=== PATIENT | female | born 1955 | race African-American/Black ===

== ENCOUNTER 2023-04-18 12:45 | Outpatient (REF) | payer OTHER, SELFPAY | END 2023-04-18 12:46 | disposition home or self-care (01) | LOC: HO.BBR 12:45 | PROVIDERS: Visit Provider Physician Assistant Medical | DX: E83.19 Other disorders of iron metabolism (principal) | CPT/HCPCS: 85014; 85018; 99195 ==

== ENCOUNTER 2023-05-05 10:06 | Outpatient (REF) | payer OTHER, SELFPAY | END 2023-05-05 10:07 | disposition home or self-care (01) | LOC: HO.BBR 10:06 | PROVIDERS: Visit Provider Physician Assistant Medical | DX: E83.19 Other disorders of iron metabolism (principal) | CPT/HCPCS: 85018; 99195 ==

== ENCOUNTER 2023-05-09 11:04 | Outpatient (REF) | payer OTHER, SELFPAY | END 2023-05-09 11:05 | disposition home or self-care (01) | LOC: HO.BBR 11:04 | PROVIDERS: Visit Provider Physician Assistant Medical | DX: E83.19 Other disorders of iron metabolism (principal) | CPT/HCPCS: 85014; 85018; 99195 ==

== ENCOUNTER 2023-05-16 11:06 | Outpatient (REF) | payer OTHER, SELFPAY | END 2023-05-16 11:07 | disposition home or self-care (01) | LOC: HO.BBR 11:06 | PROVIDERS: Visit Provider Physician Assistant Medical | DX: E83.19 Other disorders of iron metabolism (principal) | CPT/HCPCS: 85014; 85018; 99195 ==

== ENCOUNTER 2023-05-23 11:05 | Outpatient (REF) | payer OTHER, SELFPAY | END 2023-05-23 11:06 | disposition home or self-care (01) | LOC: HO.BBR 11:05 | PROVIDERS: Visit Provider Physician Assistant Medical | DX: E83.19 Other disorders of iron metabolism (principal) | CPT/HCPCS: 85014; 85018; 99195 ==

== ENCOUNTER 2023-06-06 11:08 | Outpatient (REF) | payer MEDICARE, MEDICAID, SELFPAY | END 2023-06-06 11:09 | disposition home or self-care (01) | LOC: HO.BBR 11:08 | PROVIDERS: Visit Provider Physician Assistant Medical | DX: E83.19 Other disorders of iron metabolism (principal) | CPT/HCPCS: 85014; 85018; 99195 ==

== ENCOUNTER 2023-06-13 14:00 | Outpatient (REF) | payer MEDICARE, MEDICAID, SELFPAY | END 2023-06-13 14:01 | disposition home or self-care (01) | LOC: HO.BBR 14:00 | PROVIDERS: Visit Provider Physician Assistant Medical | DX: E83.19 Other disorders of iron metabolism (principal) | CPT/HCPCS: 85014; 85018; 99195 ==

== ENCOUNTER 2023-06-20 12:09 | Outpatient (REF) | payer OTHER, SELFPAY | END 2023-06-20 12:10 | disposition home or self-care (01) | LOC: HO.BBR 12:09 | PROVIDERS: Visit Provider Physician Assistant Medical | DX: E83.19 Other disorders of iron metabolism (principal) | CPT/HCPCS: 85014; 85018; 99195 ==

== ENCOUNTER 2023-06-27 12:13 | Outpatient (REF) | payer OTHER, SELFPAY | END 2023-06-27 12:14 | disposition home or self-care (01) | LOC: HO.BBR 12:13 | PROVIDERS: Visit Provider Physician Assistant Medical | DX: E83.19 Other disorders of iron metabolism (principal) | CPT/HCPCS: 85014; 85018; 99195 ==

== ENCOUNTER 2023-07-11 11:15 | Outpatient (REF) | payer OTHER, SELFPAY | END 2023-07-11 11:16 | disposition home or self-care (01) | LOC: HO.BBR 11:15 | PROVIDERS: Visit Provider Physician Assistant Medical | DX: E83.19 Other disorders of iron metabolism (principal) | CPT/HCPCS: 85018; 99195 ==

== ENCOUNTER 2023-07-25 10:57 | Outpatient (REF) | payer OTHER, SELFPAY | END 2023-07-25 10:58 | disposition home or self-care (01) | LOC: HO.BBR 10:57 | PROVIDERS: Visit Provider Physician Assistant Medical | DX: E83.10 Disorder of iron metabolism, unspecified (principal) | CPT/HCPCS: 85018; 99195 ==

== ENCOUNTER 2023-08-01 11:16 | Outpatient (REF) | payer OTHER, SELFPAY | END 2023-08-01 11:17 | disposition home or self-care (01) | LOC: HO.BBR 11:16 | PROVIDERS: Visit Provider Physician Assistant Medical | DX: E83.10 Disorder of iron metabolism, unspecified (principal) | CPT/HCPCS: 85018; 99195 ==

== ENCOUNTER 2023-09-08 14:34 | Outpatient (REF) | payer OTHER, SELFPAY | END 2023-09-08 14:35 | disposition home or self-care (01) | LOC: HO.BBR 14:34 | PROVIDERS: Visit Provider Physician Assistant Medical | DX: E83.10 Disorder of iron metabolism, unspecified (principal) | CPT/HCPCS: 85018; 99195 ==

== ENCOUNTER 2023-09-17 14:09 | Outpatient (REF) | payer OTHER, SELFPAY | END 2023-09-17 14:10 | disposition home or self-care (01) | LOC: HO.BBR 14:09 | PROVIDERS: Visit Provider Physician Assistant Medical | DX: E83.10 Disorder of iron metabolism, unspecified (principal) | CPT/HCPCS: 85018; 99195 ==

== ENCOUNTER 2023-11-11 12:03 | Outpatient (REF) | payer OTHER, SELFPAY | END 2023-11-11 12:04 | disposition home or self-care (01) | LOC: HO.BBR 12:03 | PROVIDERS: Visit Provider Physician Assistant Medical | DX: E83.111 Hemochromatosis due to repeated red blood cell transfusions (principal) | CPT/HCPCS: 85014; 85018; 99195 ==

== ENCOUNTER 2023-11-19 13:12 | Outpatient (REF) | payer OTHER, SELFPAY | END 2023-11-19 13:13 | disposition home or self-care (01) | LOC: HO.BBR 13:12 | PROVIDERS: Visit Provider Physician Assistant Medical | DX: E83.111 Hemochromatosis due to repeated red blood cell transfusions (principal) | CPT/HCPCS: 85018; 99195 ==

== ENCOUNTER 2023-11-26 11:12 | Outpatient (REF) | payer OTHER, SELFPAY | END 2023-11-26 11:13 | disposition home or self-care (01) | LOC: HO.BBR 11:12 | PROVIDERS: Visit Provider Physician Assistant Medical | DX: E83.111 Hemochromatosis due to repeated red blood cell transfusions (principal) | CPT/HCPCS: 85018; 99195 ==

== ENCOUNTER 2023-12-09 11:07 | Outpatient (REF) | payer OTHER, SELFPAY | END 2023-12-09 11:08 | disposition home or self-care (01) | LOC: HO.BBR 11:07 | PROVIDERS: Visit Provider Physician Assistant Medical | DX: E83.111 Hemochromatosis due to repeated red blood cell transfusions (principal) | CPT/HCPCS: 85014; 85018; 99195 ==

== ENCOUNTER 2023-12-16 11:10 | Outpatient (REF) | payer OTHER, SELFPAY | END 2023-12-16 11:11 | disposition home or self-care (01) | LOC: HO.BBR 11:10 | PROVIDERS: Visit Provider Physician Assistant Medical | DX: E83.119 Hemochromatosis, unspecified (principal) | CPT/HCPCS: 85018; 99195 ==

== ENCOUNTER 2023-12-24 11:01 | Outpatient (REF) | payer OTHER, SELFPAY | END 2023-12-24 11:02 | disposition home or self-care (01) | LOC: HO.BBR 11:01 | PROVIDERS: Visit Provider Physician Assistant Medical | DX: E83.111 Hemochromatosis due to repeated red blood cell transfusions (principal) | CPT/HCPCS: 85014; 85018; 99195 ==

== ENCOUNTER 2024-01-02 13:07 | Outpatient (REF) | payer OTHER, SELFPAY | END 2024-01-02 13:08 | disposition home or self-care (01) | LOC: HO.BBR 13:07 | PROVIDERS: Visit Provider Physician Assistant Medical | DX: E83.119 Hemochromatosis, unspecified (principal) | CPT/HCPCS: 85014; 85018; 99195 ==

== ENCOUNTER 2024-01-09 13:13 | Outpatient (REF) | payer OTHER, SELFPAY | END 2024-01-09 13:14 | disposition home or self-care (01) | LOC: HO.BBR 13:13 | PROVIDERS: Visit Provider Physician Assistant Medical | DX: E83.111 Hemochromatosis due to repeated red blood cell transfusions (principal) | CPT/HCPCS: 85018; 99195 ==

== ENCOUNTER 2024-01-20 13:04 | Outpatient (REF) | payer OTHER, SELFPAY | END 2024-01-20 13:05 | disposition home or self-care (01) | LOC: HO.BBR 13:04 | PROVIDERS: Visit Provider Physician Assistant Medical | DX: E83.19 Other disorders of iron metabolism (principal) | CPT/HCPCS: 85014; 85018; 99195 ==

== ENCOUNTER 2024-01-28 13:09 | Outpatient (REF) | payer OTHER, SELFPAY | END 2024-01-28 13:10 | disposition home or self-care (01) | LOC: HO.BBR 13:09 | PROVIDERS: Visit Provider Physician Assistant Medical | DX: E83.19 Other disorders of iron metabolism (principal) | CPT/HCPCS: 85018; 99195 ==

== ENCOUNTER 2024-02-06 11:06 | Outpatient (REF) | payer OTHER, SELFPAY | END 2024-02-06 11:07 | disposition home or self-care (01) | LOC: HO.BBR 11:06 | PROVIDERS: Visit Provider Physician Assistant Medical | DX: E83.19 Other disorders of iron metabolism (principal) | CPT/HCPCS: 85014; 85018; 99195 ==

== ENCOUNTER 2024-02-17 10:28 | Outpatient (REF) | payer OTHER, SELFPAY | END 2024-02-17 10:29 | disposition home or self-care (01) | LOC: HO.BBR 10:28 | PROVIDERS: Visit Provider Physician Assistant Medical | DX: E83.111 Hemochromatosis due to repeated red blood cell transfusions (principal) | CPT/HCPCS: 85018 ==

== ENCOUNTER 2024-03-05 11:04 | Outpatient (REF) | payer OTHER, SELFPAY | END 2024-03-05 11:05 | disposition home or self-care (01) | LOC: HO.BBR 11:04 | PROVIDERS: Visit Provider Physician Assistant Medical | DX: E83.119 Hemochromatosis, unspecified (principal) | CPT/HCPCS: 85018; 99195 ==

== ENCOUNTER 2024-03-18 11:07 | Outpatient (REF) | payer OTHER, SELFPAY ==
--- OUTSIDE RECORDS SUMMARY | 2024-03-18 15:00 | XMS_ITS | Patient Health Record ---
Author Organization [facility] Address [address] [place] [address] Care Team Providers Care Embalmer Assistant Name Role Phone Mireya Downing MD Primary Care Provider Leila Valdez Unavailable [phone] Reason For Referral No Information Encounters Encounter Location Date Provider [facility] [address] [address] 03/16/2024 Leila Crowder Plan Of Treatment Next Appt Details Provider Name:Krzysztof Jovana Nettles , 06/10/2024 10:00:00 AM, [address] [address], [place], [address], Insurance Providers Payer Name Payer Address Payer Phone Subscriber Number Group Number Insured Name Patient Relationship to Insured Coverage Start Date Coverage End Date [facility] [employer] [place] [employer] Claims [address] [place] [id number] Kendra Martinez Self - patient is the insured
--- OUTSIDE RECORDS SUMMARY | 2024-03-18 15:00 | XMS_ITS ---
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 Generated for Printi ng/Margo/eTransmitting on:?03/18/2024 02:59 PM EST
--- OUTSIDE RECORDS SUMMARY | 2024-03-18 15:00 | XMS_ITS | Clinical Summary ---
Author Organization [facility] Address [address] [place] [address] Care Team Providers Care Piano And Organ Refinisher Name Role Phone Unavailable Primary Care Provider Unavailabl e Social History Tobacco Use Types Packs/Day Years Used Date Smoking Tobacco: Never Assessed Sex and Gender Information Value Date Recorded Sex Assigned at Not on file Gender Identity Not on file Sexual Orientation Not on file Plan of Treatment Health Maintenance Due Date Last Done Comments DTaP,Tdap,and Td Vaccines (1 - Tdap) 1973 Zoster Vaccines (1 of 2) 2004 Pneumococcal Vaccine: 65+ Ye ars (1 of 1 - PCV) 06/04/2019 Breast Cancer Screening 03/17/2021 03/17/2019 Colorectal Cancer Screening: Colonoscopy 01/20/2022 Depression Screening 01/20/2022 Falls Risk Assessment 01/20/2022 Hepatitis C Screening 01/20/2022 Osteoporosis Screening (Bone Density Screening) 01/20/2022 Social Influencers of Health Screening 01/20/2022 COVID-19 Vaccine ( - 2023-2 5 season) 2023 Influenza Vaccine (#1) 2023 RSV Immunization Patients 60 + Years Old (1 - 1-dose 75+ series) 2029 HIB Vaccines Aged Out No longer eligi ble based on patient's age to complete this topic HPV Vaccines Aged Out No longer eligi ble based on patient's age to complete this topic Hepatitis A Vaccines Aged Out No long er eligible based on patient's age to complete this topic Hepatitis B Vaccines Aged Out No long er eligible based on patient's age to complete this topic IPV Vaccines Aged Out No longer eligi ble based on patient's age to complete this topic MMR Vaccines Aged Out No longer eligi ble based on patient's age to complete this topic Meningococcal ACWY Vaccine Aged Out N o longer eligible based on patient's age to complete this topic RSV Immunization Patients Un gillian 20 months Aged Out No longer eligible b ased on patient's age to complete this topic Varicella Vaccines Aged Out No longer eligible based on patient's age to complete this topic Procedures Procedure Name Priority Date/Time Associated Diagnosis Comments [facility] SCREENING DIGITAL Routine 03/17/2019 10:29 AM EST Encounter for screening mammogram for malignant neoplasm of breast from Last 3 Months or Most Recently Relevant to Health Maintenance Results * [facility] SCREENING DIGITAL (03/17/2019 10:29 AM EST) Anatomical Region Laterality Modality Mammography 03/17/2019 9:18 AM EST Narrative 03/17/2019 10:[address] [facility] Diagnostic Imaging Department [address] [place] [address] Patient: ??PURNIMAKENDRA ?/Age/Sex: 1955 - 63 - F Unit#: ??[id number] ? Location/Status: ??SPDIMAM/REG CLI ? Mnemonic/Ordering Site: ??DIGSC/SPMAM Ordering Physician: ??EVA HARVEY MD [facility] Screening Digital - 03/17/19 - 943 INDICATION: SCREENING COMPARISON: No prior studies are available for comparison. TECHNIQUE: CC and MLO views of the breasts were obtained, using full field digital mammography with 3D tomosynthesis views in the MLO projection. Computer aided detection with the [employer] 7.2-H was employed. FINDINGS: The breast tissue is extremely dense, lowering sensitivity of mammography in this patient. Loosely grouped calcifications within the upper outer quadrant of the left breast. ??Benign vascular type calcifications are present bilaterally. No suspicious masses, or areas of architectural distortion are identified within either breast. ??There are no secondary signs of breast malignancy. IMPRESSION: ??Loosely grouped calcifications within the upper outer quadrant of the left breast. ??Further evaluation with magnification views is recommended. No specific mammographic evidence of breast malignancy on the right. Lack of an imaging correlate should not deter or delay biopsy of a clinically significant palpable finding. BI-RADS ??- Category 0 - Incomplete needs additional imaging evaluation. 3340F, 7025F (G0202 / 13576) , ??[id number] Dictating Physician: ??J LUIS COTTRELL MD Electronically Signed by: ??J LUIS COTTRELL MD Dic Date/Time: ??03/17/19 1024 Sign date/Time: ??03/17/19 1029 Procedure Note J Luis Cottrell - 02/06/2022 [facility] Diagnostic Imaging Department [address] [place] [address] Patient: KENDRA MARTINEZ D.O.B./Age/Sex: 1955 - 63 - F Unit#: [id number] Location/Status: [facility] CLI Mnemonic/Ordering Site: [facility] Ordering Physician: EVA HARVEY MD [facility] Screening Digital - 03/17/19 - 3134 INDICATION: SCREENING COMPARISON: No prior studies are available for comparison. TECHNIQUE: CC and MLO views of the breasts were obtained, using full field digital mammography with 3D tomosynthesis views in the MLO projection. Computer aided detection with the [employer] 7.2-H was employed. FINDINGS: The breast tissue is extremely dense, lowering sensitivity of mammographyin this patient. Loosely grouped calcifications within the upper outer quadrant of theleft breast. Benign vascular type calcifications are present bilaterally. No suspicious masses, or areas of architectural distortion areidentified within either breast. There are no secondary signs of breastmalignancy. IMPRESSION: Loosely grouped calcifications within the upper outerquadrant of the left breast. Further evaluation with magnification views isrecommended. No specific mammographic evidence of breast malignancy on the right. Lack of an imaging correlate should not deter or delay biopsy of aclinically significant palpable finding. BI-RADS - Category 0 - Incomplete needs additional imaging evaluation.3340F, 7025F (G0202 / [id number] , [id number] Dictating Physician: J LUIS COTTRELL MD Electronically Signed by: J LUIS COTTRELL MD Dic Date/Time: 03/17/19 1024 Sign date/Time: 03/17/19 1029 Eva Harvey MD IMG BI PROCEDURES from Last 3 Months or Most Recently Relevant to Health Maintenance
== END 2024-03-18 11:08 | disposition home or self-care (01) ==
LOC: HO.BBR 11:07
PROVIDERS: Visit Provider Physician Assistant Medical
DX: E83.19 Other disorders of iron metabolism (principal)
CPT/HCPCS: 85018; 99195

== ENCOUNTER 2024-03-31 11:07 | Outpatient (REF) | payer OTHER, SELFPAY ==
--- OUTSIDE RECORDS SUMMARY | 2024-03-31 13:01 | XMS_ITS | Clinical Summary ---
Author Organization [facility] ity Address [address] [place] [address] Care Team Providers Care Mold Closer Helper Name Role Phone Unavailable Primary Care Provider Unavailabl e Social History Tobacco Use Types Packs/Day Years Used Date Smoking Tobacco: Never Assessed Comments Unknown Sex and Gender Information Value Date Recorded Sex Assigned at Not on file Legal Sex Female 4:54 PM EST Gender Identity Not on file Sexual Orientation Not on file Plan of Treatment Health Maintenance Due Date Last Done Comments DTaP,Tdap,and Td Vaccines (1 - Tdap) 1973 Pneumococcal Vaccine: 50+ Ye ars (1 of 1 - PCV) 2004 Zoster Vaccines (1 of 2) 2004 Breast Cancer Screening 03/17/2021 03/17/2019 Colorectal Cancer [...] patient's age to complete this topic Meningococcal B Vacine Aged Out No lo nger eligible based on patient's age to complete this topic RSV Immunization Patients Un gillian 20 months Aged Out No longer eligible b ased on patient's age to complete this topic Varicella Vaccines Aged Out No longer eligible based on patient's age to complete this topic Procedures Procedure Name Priority Date/Time Associated Diagnosis Comments [facility] SCREENING DIGITAL Routine 03/17/2019 10:29 AM EST Encounter for screening mammogram for malignant neoplasm of breast from Last 3 Months or Most Recently Relevant to Health Maintenance Results * [facility] SCREENING DIGITAL (03/17/2019 10:29 AM EST) Anatomical Region Laterality Modality Mammography 03/17/2019 9:18 AM EST Narrative 03/17/2019 10:29 AM EST [facility] Diagnostic Imaging Department [address] [place] [address] Patient: ??KENDRA MARTINEZ ?/Age/Sex: 1955 - 63 - F Unit#: ??[id number] ? Location/Status: ??SPDIMAM/REG CLI ? Mnemonic/Ordering Site: ??DIGSC/SPMAM Ordering Physician: ??EVA HARVEY MD [facility] Screening Digital - 03/17/19943 INDICATION: SCREENING COMPARISON: No prior studies are available for comparison. TECHNIQUE: CC and MLO views of the breasts were obtained, using full field digital mammography with 3D tomosynthesis views in the MLO projection. Computer aided detection with the [employer] 7.2-H was employed. FINDINGS: The breast tissue [...] additional imaging evaluation. 3340F, 7025F (G0202 / 76239) , ??[address]27 Dictating Physician: ??JL UIS COTTRELL MD Electronically Signed by: ??J LUIS COTTRELL MD Dic Date/Time: ??03/17/19 1024 Sign date/Time: ??03/17/19 1029 Procedure Note J Luis Cottrell - 02/06/2022 [facility] Diagnostic Imaging Department [address] [place] [id number] Patient: KENDRA MARTINEZ D.O.B./Age/Sex: 1955 - 63 - F Unit#: [id number] Location/Status: [facility] CLI Mnemonic/Ordering Site: [facility] Ordering Physician: EVA HARVEY MD [facility] Screening Digital - 03/17/19 - 0944 INDICATION: SCREENING COMPARISON: No prior studies are available for comparison. TECHNIQUE: CC and MLO views of the breasts were obtained, using full field digital mammography with 3D tomosynthesis views in the MLO projection. Computer aided detection with the [employer] 7.2-H was employed. FINDINGS: The breast tissue [...] needs additional imaging evaluation.3340F, 7025F (G0202 / 42177) , [address]808 Dictating Physician: J LUIS COTTRELL MD Electronically Signed by: J LUIS COTTRELL MD Dic Date/Time: 03/17/19 1024 Sign date/Time: 03/17/19 1029 us vEa Harvey MD IMG BI PROCEDURES Final Resul t from Last 3 Months or Most Recently Relevant to Health Maintenance
--- OUTSIDE RECORDS SUMMARY | 2024-03-31 13:01 | XMS_ITS ---
Author Organization [facility] Address [address] [place] [address] Care Team Providers Care Wood And Wood Products Labourer Name Role Phone Chang LEE, Mireya Primary Care Provider Leila Valdez [phone] Encounters Encounter Location Date Provider Diagnosis [address] [address] 03/19/2024 Leila Crowder Plan Of Treatment Next Appt Details Provider Name:Krzysztof Nettles , 06/10/2024 10:00:00 AM, [address] [place] [address], [address], Progress Notes * JUAN Kendra ADOB: [birth year] (68 yo F)Acc No.[id number]:03/19/2024 Progress Notes Patient:?Latisha MARTINEZley Rubén Provider:?Leila Crowder DPM :1955???Age:68 Y???Sex:Female D ate:03/19/2024 Address:[address] [place], [place] [address] Pcp:Mireya Downing MD Subjective: * Chief Complaints: * ??? * Medical History:? Objective: * Vitals:? Assessment: Plan: * Treatment: * Images: * The named appointment provid er may or may not be the originator of this progress note, and it is not deemed complete until electronically signed by the appointment provider. Sign off status: Pending * Provider:?Leila Crowder DPM Date:?0 03/19/2024 Generated for Alessandroi jose alfredo/Margo/eTransmitting on:?03/31/2024 01:01 PM EST
--- OUTSIDE RECORDS SUMMARY | 2024-03-31 13:01 | XMS_ITS | Patient Health Record ---
Author Organization [facility] Address [address] [place] [address] Care Team Providers Care Drafter Construction Name Role Phone Mireya Downing MD Primary Care Provider Leila Valdez Unavailable [phone] Reason For Referral No Information Encounters Encounter Location Date [facility] [address] [address] 03/16/2024 Leila Crowder Plan Of Treatment Next Appt Details Provider Name:Krzysztof Jovana Nettles , 06/10/2024 10:00:00 AM, [address] [address], [place], [address], Insurance Providers Payer Name Payer Address Payer Phone Subscriber Number Group Number Insured Name Patient Relationship to Insured Coverage Start Date Coverage End Date [facility] [employer] Claims [address] [place] [id number] Kendra Martinez Self - patient is the insured
--- OUTSIDE RECORDS SUMMARY | 2024-03-31 13:01 | XMS_ITS ---
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 Generated for Printi ng/Margo/eTransmitting on:?03/31/2024 01:01 PM EST
== END 2024-03-31 11:08 | disposition home or self-care (01) ==
LOC: HO.BBR 11:07
PROVIDERS: Visit Provider Physician Assistant Medical
DX: E83.19 Other disorders of iron metabolism (principal)
CPT/HCPCS: 85014; 85018; 99195

== ENCOUNTER 2024-04-14 11:39 | Outpatient (REF) | payer OTHER, SELFPAY ==
--- OUTSIDE RECORDS SUMMARY | 2024-04-14 14:41 | XMS_ITS | Patient Health Record ---
Author Organization [facility] Address [address] [place] [address] Care Team Providers Care Long Term Care Social Worker Name Role Phone Mireya Downing MD Primary Care Provider Leila Valdez Unavailable [phone] Reason For Referral No Information Encounters Encounter Location Date Provider [facility] [address] [address] 03/16/2024 Leila Crowder Plan Of Treatment Next Appt Details Provider Name:Krzysztof Jovana Nettles , 06/10/2024 10:00:00 AM, [address] [address], [place], [address], Insurance Providers Payer Name Payer Address Payer Phone Subscriber Number Group Number Insured Name Patient Relationship to Insured Coverage Start Date Coverage End Date [facility] [employer] Claims [address] [place] [phone] [id number] Kendra Martinez Self - patient is the insured
--- OUTSIDE RECORDS SUMMARY | 2024-04-14 14:42 | XMS_ITS ---
Author Organization [facility] Address [address] [place] [address] Care Team Providers Care Distributor Sales Consultant Name Role Phone Chang LEE, Mireya Primary Care Provider Leila Valdez [phone] Encounters Encounter Location Date Provider Diagnosis [address] [address] 03/19/2024 Leila Crowder Plan Of Treatment Next Appt Details Provider Name:Krzysztof Nettles , 06/10/2024 10:00:00 AM, [address] [place] [address], [address], Progress Notes * JUAN Kendra ADOB: [birth year] (68 yo F)Acc No.[id number]:03/19/2024 Progress Notes Patient:?Latisha MARTINEZley Rubén Provider:?Leila Crowder DPM :1955???Age:68 Y???Sex:Female D ate:03/19/2024 Address:[address] [place], [place] [phone] Pcp:Mireya Downing MD Subjective: * Chief Complaints: [...] Date:?0 03/19/2024 Generated for Alessandroi jose alfredo/Margo/eTransmitting on:?04/14/2024 02:41 PM EST
--- OUTSIDE RECORDS SUMMARY | 2024-04-14 14:42 | XMS_ITS ---
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 Generated for Printi jose alfredo/Margo/eTransmitting on:?04/14/2024 02:41 PM EST
--- OUTSIDE RECORDS SUMMARY | 2024-04-14 14:42 | XMS_ITS | Clinical Summary ---
Author Organization [facility] ity Address [address] [place] [address] Care Team Providers Care Planning Supervisor Name Role Phone Unavailable Primary Care Provider [...] Procedure Name Priority Date/Time Associated Diagnosis Comments [facility] SCREENING DIGITAL Routine 03/17/2019 10:29 AM EST Encounter for screening mammogram for malignant neoplasm of breast from Last 3 Months or Most Recently Relevant to Health Maintenance Results * ALICE SCREENING DIGITAL (03/17/2019 10:29 AM EST) Anatomical Region Laterality Modality Mammography 03/17/2019 9:18 AM EST Narrative 03/17/2019 10:29 AM EST [facility] Diagnostic Imaging Department [address] [place] [address] Patient: ??KENDRA MARTINEZ ?/Age/Sex: 1955 - 63 - F Unit#: ??[id number] ? Location/Status: ??SPDIMAM/REG CLI ? Mnemonic/Ordering Site: ??DIGSC/SPMAM Ordering Physician: ??EVA HARVEY MD Alice Screening Digital - 03/17/19943 INDICATION: SCREENING COMPARISON: No prior studies are available for comparison. TECHNIQUE: CC and MLO views of the breasts were obtained, using full field digital mammography with 3D tomosynthesis views in the MLO projection. Computer aided detection with the Sequenta 7.2-H was employed. FINDINGS: The breast tissue [...] additional imaging evaluation. 3340F, 7025F (G0202 / 41200) , ??[id number] Dictating Physician: ??J LUIS COTTRELL MD Electronically Signed by: ??J LUIS COTTRELL MD Dic Date/Time: ??03/17/19 1024 Sign date/Time: ??03/17/19 1029 Procedure Note J Luis Cottrell - 02/06/2022 [facility] Diagnostic Imaging Department [address] [place] [address] [id number] Patient: KENDRA MARTINEZ D.O.B./Age/Sex: 1955 - 63 - F Unit#: [id number] Location/Status: [facility] CLI Mnemonic/Ordering Site: [facility] Ordering Physician: EVA HARVEY MD Alice Screening Digital - 03/17/19 - 0944 INDICATION: SCREENING COMPARISON: No prior studies are available for comparison. TECHNIQUE: CC and MLO views of the breasts were obtained, using full field digital mammography with 3D tomosynthesis views in the MLO projection. Computer aided detection with the [employer] 7.2-H was employed. FINDINGS: The breast tissue [...] needs additional imaging evaluation.3340F, 7025F (G0202 / 20622) , [id number] Dictating Physician: J LUIS COTTRELL MD Electronically Signed by: J LUIS COTTRELL MD Dic Date/Time: 03/17/19 1024 Sign date/Time: 03/17/19 1029 us Eva Harvey MD IMG BI PROCEDURES Final Resul t from Last 3 Months or Most Recently Relevant to Health Maintenance
== END 2024-04-14 11:40 | disposition home or self-care (01) ==
LOC: HO.BBR 11:39
PROVIDERS: Visit Provider Physician Assistant Medical
DX: E83.111 Hemochromatosis due to repeated red blood cell transfusions (principal)
CPT/HCPCS: 85018; 99195

== ENCOUNTER 2024-04-20 13:04 | Outpatient (REF) | payer OTHER, SELFPAY ==
--- OUTSIDE RECORDS SUMMARY | 2024-04-20 16:18 | XMS_ITS ---
Author Organization [facility] shanti [place] Address [address] [place] [address] Care Team Providers Care Photographer Apprentice Lithographic Name Role Phone Chang LEE, Mireya Primary Care Provider Leila Valdez [phone] REASON FOR VISIT VPA cx [facility] appt Encounters Encounter Location Date [facility] [address] 03/16/2024 Leila Crowder Plan Of Treatment Next Appt Details Provider Name:Krzysztof Jovana Nettles , 06/10/2024 10:00:00 AM, [address] [facility], [address] [address], [place], [address], Progress Notes * Kendra MARTINEZ ADOB: [birth year] (68 yo F)Acc No.[id number]:03/16/2024 Patient:?Kendra MARTINEZ :1955???Age:68 Y???Sex:Female Address:[address] [place] [address], [address], [place], [address] * true * Date:? Generated for Printi jose alfredo/Margo/eTransmitting on:?04/20/2024 04:18 PM EST
--- OUTSIDE RECORDS SUMMARY | 2024-04-20 16:18 | XMS_ITS | Patient Health Record ---
[facility] Address [address] [place] [address] Care Team Providers Care Assistant Warehouse Manager Name Role Phone Mireya Downing MD Primary Care Provider Leila Valdez Unavailable [phone] Reason For Referral No Information Encounters Encounter Location Date Provider [facility] [address] [address] 03/16/2024 Leila Crowder Plan Of Treatment Next Appt Details Provider Name:Krzysztof Jovana Nettles , 06/10/2024 10:00:00 AM, [address] [address], [place], [address], Insurance Providers Payer Name Payer Address Payer Phone Subscriber Number Group Number Insured Name Patient Relationship to Insured Coverage Start Date Coverage End Date [facility] [place] [employer] Claims [address] [place] [id number] Kendra Martinez Self - patient is the insured
--- OUTSIDE RECORDS SUMMARY | 2024-04-20 16:19 | XMS_ITS ---
Author Organization [facility] Address [address] [place] [address] Care Team Providers Care Shuttler Name Role Phone Chang LEE, Mireya Primary Care Provider Leila Valdez [phone] Encounters Encounter Location Date Provider Diagnosis [address] [address] 03/19/2024 Leila Crowder Plan Of Treatment Next Appt Details Provider Name:Krzysztof Nettles , 06/10/2024 10:00:00 AM, [address] [place] [address], [address], Progress Notes * JUAN Kendra ADOB: [birth year] (68 yo F)Acc No.[id number]:03/19/2024 Progress Notes Patient:?Kendra MARTINEZ Provider:?Leila Crowder DPM :1955???Age:68 Y???Sex:Female D ate:03/19/2024 Address:[address] [place], [place] [phone] Pcp:Mireya Downing MD Subjective: * Chief Complaints: [...] Date:?0 03/19/2024 Generated for Alessandroi jose alfredo/Margo/eTransmitting on:?04/20/2024 04:18 PM EST
--- OUTSIDE RECORDS SUMMARY | 2024-04-20 16:19 | XMS_ITS | Clinical Summary ---
Author Organization [facility] ity Address [address] [place] [address] Care Team Providers Care Literacy Tutor Name Role Phone Unavailable Primary Care Provider [...] Procedure Name Priority Date/Time Associated Diagnosis Comments [facility] SCREENING DIGITAL Routine 03/17/2019 10:29 AM EST Encounter for screening mammogram for malignant neoplasm of breast from Last 3 Months or Most Recently Relevant to Health Maintenance Results * ALICE SCREENING DIGITAL (03/17/2019 10:29 AM EST) Anatomical Region Laterality Modality Mammography 03/17/2019 9:18 AM EST Narrative 03/17/2019 10:[address] [facility] Diagnostic Imaging Department [address] [place] [address] Patient: ??KENDRA MARTINEZ ?/Age/Sex: 1955 - 63 - F Unit#: ??[id number] ? Location/Status: ??SPDIMAM/REG CLI ? Mnemonic/Ordering Site: ??DIGSC/SPMAM Ordering Physician: ??EVA HARVEY MD Alice Screening Digital - 03/17/19943 INDICATION: SCREENING COMPARISON: No prior studies are available for comparison. TECHNIQUE: CC and MLO views of the breasts were obtained, using full field digital mammography with 3D tomosynthesis views in the MLO projection. Computer aided detection with the [employer] 7.2-H was employed. FINDINGS: The breast tissue [...] additional imaging evaluation. 3340F, 7025F (G0202 / 66783) , ??[id number] Dictating Physician: ??J LUIS COTTRELL MD Electronically Signed by: ??J LUIS COTTRELL MD Dic Date/Time: ??03/17/19 1024 Sign date/Time: ??03/17/19 1029 Procedure Note J Luis Cottrell - 02/06/2022 [facility] Diagnostic Imaging Department [address] [place] [id number] Patient: KENDRA MARTINEZ D.O.B./Age/Sex: 1955 - 63 - F Unit#: [id number] Location/Status: [facility] CLI Mnemonic/Ordering Site: [facility] Ordering Physician: EVA HARVEY MD Alice Screening Digital - 03/17/19 - 0944 INDICATION: SCREENING COMPARISON: No prior studies are available for comparison. TECHNIQUE: CC and MLO views of the breasts were obtained, using full field digital mammography with 3D tomosynthesis views in the MLO projection. Computer aided detection with the Gamar 7.2-H was employed. FINDINGS: The breast tissue [...] needs additional imaging evaluation.3340F, 7025F (G0202 / 88634) , 06002 Dictating Physician: J LUIS COTTRELL MD Electronically Signed by: J LUIS COTTRELL MD Dic Date/Time: 03/17/19 1024 Sign date/Time: 03/17/19 1029 us Eva Harvey MD IMG BI PROCEDURES Final Resul t from Last 3 Months or Most Recently Relevant to Health Maintenance
== END 2024-04-20 13:05 | disposition home or self-care (01) ==
LOC: HO.BBR 13:04
PROVIDERS: Visit Provider Physician Assistant Medical
DX: E83.119 Hemochromatosis, unspecified (principal)
CPT/HCPCS: 85014; 85018; 99195

== ENCOUNTER 2024-06-04 13:05 | Outpatient (REF) | payer OTHER, SELFPAY ==
--- OUTSIDE RECORDS SUMMARY | 2024-06-04 13:37 | XMS_ITS | Clinical Summary ---
Author Organization [facility] ity Address [address] [place] [address] Care Team Providers Care Security Systems Installer Name Role Phone Unavailable Primary Care Provider [...] - 2023-2 5 season) 2023 Influenza Vaccine (Season Ended) 2024 RSV Immunization Adult Patie nts (1 - 1-dose 75+ series) 2029 HIB [...] age to complete this topic Meningococcal B Vaccine Aged Out No l onger eligible based on patient's age to complete this topic RSV Immunization Patients Un gillian 20 months Aged Out No longer eligible b ased on patient's age to complete this topic Varicella Vaccines Aged Out No longer eligible based on patient's age to complete this topic Procedures Procedure Name Priority Date/Time Associated Diagnosis Comments [facility] SCREENING DIGITAL Routine 03/17/2019 10:29 AM EST Encounter for screening mammogram for malignant neoplasm of breast from Last 3 Months or Most Recently Relevant to Health Maintenance Results * ALICE SCREENING DIGITAL (03/17/2019 10:29 AM EST) Anatomical Region Laterality Modality Mammography 03/17/2019 9:18 AM EST Narrative 03/17/2019 10:29 AM EST [facility] Diagnostic Imaging Department [address] [place] [address] Patient: ??KENDRA MARTINEZ ?/Age/Sex: 1955 - 63 - F Unit#: ??[id number] ? Location/Status: ??SPDIMAM/REG CLI ? Mnemonic/Ordering Site: ??DIGSC/SPMAM Ordering Physician: ??EVA HARVEY MD Alice Screening Digital - 03/17/19943 INDICATION: SCREENING COMPARISON: No prior studies are available for comparison. TECHNIQUE: CC and MLO views of the breasts were obtained, using full field digital mammography with 3D tomosynthesis views in the MLO projection. Computer aided detection with the [employer] 7.2-H was employed. FINDINGS: The breast tissue [...] additional imaging evaluation. 3340F, 7025F (G0202 / 49938) , ??[id number] Dictating Physician: ??J LUIS COTTRELL MD Electronically Signed by: ??J LUIS COTTRELL MD Dic Date/Time: ??03/17/19 1024 Sign date/Time: ??03/17/19 1029 Procedure Note J Luis Cottrell - 02/06/2022 [facility] Diagnostic Imaging Department [address] [place] [address] [id number] Patient: KENDRA MARTINEZ D.O.B./Age/Sex: 1955 - 63 - F Unit#: [id number] [facility] Ordering Physician: EVA HARVEY MD Alice Screening Digital - 03/17/19 - 0944 INDICATION: SCREENING COMPARISON: No prior studies are available for comparison. TECHNIQUE: CC and MLO views of the breasts were obtained, using full field digital mammography with 3D tomosynthesis views in the MLO projection. Computer aided detection with the [employer] 7.2-H was employed. FINDINGS: The breast tissue [...] needs additional imaging evaluation.3340F, 7025F (G0202 / 39326) , [id number] Dictating Physician: J LUIS COTTRELL MD Electronically Signed by: J LUIS COTTRELL MD Dic Date/Time: 03/17/19 1024 Sign date/Time: 03/17/19 1029 us Eva Harvey MD IMG BI PROCEDURES Final Resul t from Last 3 Months or Most Recently Relevant to Health Maintenance
--- OUTSIDE RECORDS SUMMARY | 2024-06-04 13:37 | XMS_ITS | Patient Health Record ---
Author Organization [facility] shanti [place] Address [address] [place] [address] Care Team Providers Care Wheel Lacer And Truer Name Role Phone Mireya Downing MD Primary Care Provider Leila Valdez Unavailable [phone] Reason For Referral No Information Social History Tobacco Use: Social History Observation Description Date Details (start date - stop date) Never Smoker NA - NA Tobacco use other than smoking: Question Answer Notes Are you an other tobacco user? No Tobacco Control (Standard) Question Answer Notes Tobacco use: Nonsmoker Additional Findings: Tobacco non-user Current no nsmoker AUDIT-C (Standard) Question Answer Notes Did you have a drink containing alcohol in the p ast year? No Points 0 Interpretation Negative Encounters Encounter Location Date [facility] [address] [place] [address] 03/16/2024 Leila Crowder Plan Of Treatment Next Appt Details Provider Name:Krzysztof Nettles , 06/10/2024 10:00:00 AM, [address] [address], [place], [address], Insurance Providers Payer Name Payer Address Payer Phone Subscriber Number Group Number Insured Name Patient Relationship to Insured Coverage Start Date Coverage End Date [facility] [employer] Claims [address] [place] [id number] Kendra Martinez Self - patient is the insured Medical (General) History Medical History History ICD Code Anxiety CAD (Cholesterol) Dementia Diabetic High Blood Pressure Stroke hemochromatosis Cirrhosis, liver
--- OUTSIDE RECORDS SUMMARY | 2024-06-04 13:37 | XMS_ITS ---
Author Organization [facility] Address [address] [place] [address] Care Team Providers Care Blending Technician Name Role Phone Mireya Downing MD Primary Care Provider Leila Valdez [phone] Encounters Encounter Location Date Provider Diagnosis [address] [address] 03/19/2024 Leila Crowder Plan Of Treatment Next Appt Details Provider Name:Krzysztof Nettles , 06/10/2024 10:00:00 AM, [address] [place] [address], [address], Progress Notes * Kendra MARTINEZ ADOB: [birth year] (69 yo F)Acc No.[id number]:03/19/2024 Progress Notes Patient:?Kendra MARTINEZ Provider:?Leila Crowder DPM :1955???Age:68 Y???Sex:Female D ate:03/19/2024 Address:[address] [place], [place] [id number] Pcp:Mireya Downing MD Subjective: * Chief Complaints: * ??? * Medical History:? Objective: * Vitals:? Assessment: Plan: * Treatment: * Images: * The named appointment provid er may or may not be the originator of this progress note, and it is not deemed complete until electronically signed by the appointment provider. Sign off status: Pending * Provider:?Leila Crowder DPM Date:?0 03/19/2024 Generated for Jesus veliz/Margo/Guillermo on:?06/04/2024 01:37 PM EDT
--- OUTSIDE RECORDS SUMMARY | 2024-06-04 13:37 | XMS_ITS ---
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 Generated for Printi ng/Fajameeg/eTransmitting on:?06/04/2024 01:37 PM EDT
== END 2024-06-04 13:06 | disposition home or self-care (01) ==
LOC: HO.BBR 13:05
PROVIDERS: Visit Provider Physician Assistant Medical
DX: E83.119 Hemochromatosis, unspecified (principal)
CPT/HCPCS: 85014; 85018; 99195

== ENCOUNTER 2024-06-16 13:08 | Outpatient (REF) | payer OTHER, SELFPAY ==
--- OUTSIDE RECORDS SUMMARY | 2024-06-16 14:27 | XMS_ITS | Patient Health Record ---
[facility] Address [address] [place] [address] Care Team Providers Care Glazier Apprentice Name Role Phone Mireya Downing MD Primary Care Provider UnavailKrzysztof Schumacher Unavailable [phone] Leila Crowder Unavailable [phone] Allergies Allergen (clinical drug ingredient) Drug/Non Drug Allergy documented on EMR Reaction Allergy Type Onset Date Status lisinopril Lisinopril Unknown Drug Allergy Activ e Results Component Value Reference Range Notes HEMOGLOBIN A1C (GLYCOHEMOGLO BIN) Reviewed date:06/10/2024 11:02:03 AM Interpretation: Performing Lab: Notes/Report: HEMOGLOBIN A1C % (HH) 4.9 Reason For Referral No Information Medications Medication SIG (Take, Route, Frequency, Duration) Notes Start Date End Date Status Atorvastatin Calcium 40 MG 1 tablet Orally Once a day Active Eliquis 5 MG as directed Orally Active Losartan Potassium 25 MG 1 tablet Orally Once a day Active Melatonin 5 MG 1 tablet Orally as needed Active HumaLOG Active Extra Depth Orthopedic Shoes (1 Pair) with Customized Heat Molded Multidensity Innersoles (3 Pair) as directed Dx: NIDDM/Polyneuropathy (E11.42), Hammertoe Foot Deformity (M20.41,M20.42), Preulcerative Skin Lesion(s) (L85.1 06/10/2024 Active Lantus 10 units Active ARIPiprazole 15 MG 1 tablet Orally Once a day Active Social History Tobacco Use: Social History Observation [...] ast year? No Points 0 Interpretation Negative Problems Problem Type SNOMED Code ICD Code Onset Dates Problem Status W/U Status Risk Notes Problem Acquired hammer toe of right foot (3104957775080433 ) Other hammer toe(s) (acquired), right foot (M20.41) Active confirmed Problem Acquired hammer toe of left foot (5414684632963812 ) Other hammer toe(s) (acquired), left foot (M20.42) Active confirmed Problem Polyneuropathy due to type 2 diabetes mellitus (914057727) Type 2 diabetes mellitus with diabetic polyneuropathy (E11.42) Active confirmed Vital Signs Height 4ft 11in in 06/10/2024 Weight 158 lbs 06/10/2024 BMI 31.91 kg/m2 06/10/2024 Procedures Procedure Date Ordered Date Performed Result Body Sit e 99671-DRFHBXD NAIL, 1-5 06/10/2024 N/A 83083-IUCY SKIN LESIONS, 2 TO 4 06/10/2024 N/A M2864-QODADOWH DYSTROPHIC NAILS ANY # 06/10/2024 N/A Encounters Encounter Location Date Provider Diagnosis [facility] [address] 06/10/2024 Krzysztof Nettles Type 2 diabetes mellitus with diabetic polyneuropathy E11.42 ; Tinea unguium B35.1 ; Other hammer toe(s) (acquired), right foot M20.41 and Other hammer toe(s) (acquired), left foot M20.[address] [facility] [address] 03/16/2024 Leila Crowder Assessments Encounter Date Diagnosis (ICD Code) Assessment Notes Treatment Notes Treatment Clinical Notes Section Notes 06/10/2024 Tinea unguium (ICD-10 - B35.1) 06/10/2024 Type 2 diabetes mellitus with diabetic polyneuropathy (ICD-10 - E11.42) 06/10/2024 Other hammer toe(s) (acquired), right foot (ICD-10 - M20.41) Patient Educated with: DIABETIC FOOT CARE INSTRUCTIONS. pdf (DIABETIC FOOT CARE INSTRUCTIONS. pdf) 06/10/2024 Other hammer toe(s) (acquired), left foot (ICD-10 - M20.42) Plan Of Treatment Pending Test Test Name Order Date 69087-CDIKLBU NAIL, 1-5 06/10/2024 04995-MOQT SKIN LESIONS, 2 TO 4 06/11/19 25 C0007-HAVDVMHR DYSTROPHIC NAILS ANY # Next Appt Details Provider Name:Krzysztof Jvoana Nettles , 09/16/2024 11:00:00 AM, [address] [facility], [facility] [address], [place], [address], Insurance Providers Payer Name Payer Address Payer Phone Subscriber Number Group Number Insured Name Patient Relationship to Insured Coverage Start Date Coverage End Date [facility] [employer] Claims [address] [place] [id number] [phone] [id number] Kendra Martinez Self - patient is the insured Medical (General) History Medical History History ICD Code Anxiety CAD (Cholesterol) Dementia Diabetic High Blood Pressure Stroke hemochromatosis Cirrhosis, liver
--- OUTSIDE RECORDS SUMMARY | 2024-06-16 14:27 | XMS_ITS ---
Author Organization [facility] Address [address] [place] [address] Care Team Providers Care Bb Shot Packer Name Role Phone Mireya Downing MD Primary Care Provider UnavailKrzysztof Schumacher Unavailable [phone] Leila Crowder [phone] Encounters Encounter Location Date [facility] [address] 03/19/2024 Leila Crowder Plan Of Treatment Next Appt Details Provider Name:Krzysztof Nettles , 09/16/2024 11:00:00 AM, [address] [place] [address], [address], Progress Notes * Kendra MARTINEZ ADOB: [birth year] (69 yo F)Acc No.[id number]:03/19/2024 Progress Notes Patient:?Latisha MARTINEZjanuary [place] Provider:?Leila Crowder DPM :1955???Age:68 Y???Sex:Female D ate:03/19/2024 Address:[address] [place], [place] [phone] Pcp:Mireya Downing MD Subjective: * Chief Complaints: * ??? * Medical History:? Objective: * Vitals:? Assessment: Plan: * Treatment: * Images: * The named appointment provid er may or may not be the originator of this progress note, and it is not deemed complete until electronically signed by the appointment provider. Sign off status: Pending * Provider:Kaylah Crowder DPM Date:?0 03/19/2024 Generated for Jesus veliz/Margo/Guillermo on:?06/16/2024 02:27 PM EDT
--- OUTSIDE RECORDS SUMMARY | 2024-06-16 14:27 | XMS_ITS | Clinical Summary ---
Author Organization [facility] ity Address [address] [place] [address] Care Team Providers Care Inspector [employer] Name Role Phone Unavailable Primary Care Provider [...] Name Priority Date/Time Associated Diagnosis Comments [facility] SCREENING DIGITAL Routine 03/17/2019 10:29 AM EST Encounter for screening mammogram for malignant neoplasm of breast from Last 3 Months or Most Recently Relevant to Health Maintenance Results * ALICE SCREENING DIGITAL (03/17/2019 10:29 AM EST) Anatomical Region Laterality Modality Mammography 03/17/2019 9:18 AM EST Narrative 03/17/2019 10:29 AM EST [facility] Diagnostic Imaging Department [address] [place] [address] Patient: ??KENDRA FELTON ?/Age/Sex: 1955 - 63 - F Unit#: ??[id number] ? Location/Status: ??SPDIMAM/REG CLI ? Mnemonic/Ordering Site: ??DIGSC/SPMAM Ordering Physician: ??EVA HARVEY MD Alice Screening Digital - 03/17/19943 INDICATION: SCREENING COMPARISON: No prior studies are available for comparison. TECHNIQUE: CC and MLO views of the breasts were obtained, using full field digital mammography with 3D tomosynthesis views in the MLO projection. Computer aided detection with the [place] 7.2-H was employed. FINDINGS: The breast tissue [...] additional imaging evaluation. 3340F, 7025F (G0202 / [id number]) , ??[id number] Dictating Physician: ??J LUIS COTTRELL MD Electronically Signed by: ??J LUIS COTTRELL MD Dic Date/Time: ??03/17/19 1024 Sign date/Time: ??03/17/19 1029 Procedure Note J Luis Cottrell - 02/06/2022 [facility] Diagnostic Imaging Department [address] [place] [address] [id number] Patient: KENDRA FELTON D.O.B./Age/Sex: 1955 - 63 - F Unit#: [id number] [facility]Ordering Site: [facility] Ordering Physician: EVA HARVEY MD Alice Screening Digital - 03/17/19 - 0944 INDICATION: SCREENING COMPARISON: No prior studies are available for comparison. TECHNIQUE: CC and MLO views of the breasts were obtained, using full field digital mammography with 3D tomosynthesis views in the MLO projection. Computer aided detection with the [place] 7.2-H was employed. FINDINGS: The breast tissue [...] needs additional imaging evaluation.3340F, 7025F (G0202 / [id number]) , [id number] Dictating Physician: J LUIS COTTRELL MD Electronically Signed by: J LUIS COTTRELL MD Dic Date/Time: 03/17/19 1024 Sign date/Time: 03/17/19 1029 us Eva Harevy MD IMG BI PROCEDURES Final Resul t from Last 3 Months or Most Recently Relevant to Health Maintenance
--- OUTSIDE RECORDS SUMMARY | 2024-06-16 14:27 | XMS_ITS ---
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 Generated for Printi ng/Faxing/eTransmitting on:?06/16/2024 02:26 PM EDT
--- OUTSIDE RECORDS SUMMARY | 2024-06-16 14:27 | XMS_ITS ---
Author Organization [facility] Address [address] [place] [address] Care Team Providers Care Natural Science Manager Name Role Phone Mireya Downing MD Primary Care Provider Unavailtwyla e Krzysztof Nettles Unavailable [phone] Allergies Allergen (clinical drug ingredient) Drug/Non Drug Allergy documented on EMR Reaction Allergy Type Onset Date Status lisinopril Lisinopril Unknown Drug Allergy Activ e REASON FOR VISIT At Risk Footcare, Toe Irritation Medications Medication SIG (Take, Route, Frequency, Duration) Notes Start Date End Date Status Atorvastatin Calcium 40 MG 1 tablet Orally Once a day Active Eliquis 5 MG as directed Orally Active Losartan Potassium 25 MG 1 tablet Orally Once a day Active Melatonin 5 MG 1 tablet Orally as needed Active ARIPiprazole 15 MG 1 tablet Orally Once a day Active HumaLOG Active Extra Depth Orthopedic Shoes (1 Pair) with Customized Heat Molded Multidensity Innersoles (3 Pair) as directed Dx: NIDDM/Polyneuropathy (E11.42), Hammertoe Foot Deformity (M20.41,M20.42), Preulcerative Skin Lesion(s) (L85.1 06/10/2024 Active Lantus 10 units Active Social History Tobacco Use: Social History [...] Problem Status W/U Status Risk Notes Problem Polyneuropathy due to type 2 diabetes mellitus (036565976) Type 2 diabetes mellitus with diabetic polyneuropathy (E11.42) Active confirmed Problem Acquired hammer toe of right foot (9444208578675618 ) Other hammer toe(s) (acquired), right foot (M20.41) Active confirmed Problem Acquired hammer toe of left foot (8211444551135961 ) Other hammer toe(s) (acquired), left foot (M20.42) Active confirmed Vital Signs Height 4ft 11in in 06/10/2024 Weight 158 lbs 06/10/2024 BMI 31.91 kg/m2 06/10/2024 Procedures Procedure Date Ordered Date Performed Result Body Sit e 96857-PUSFSKU NAIL, 1-5 06/10/2024 N/A 10325-CVFK SKIN LESIONS, 2 TO 4 06/10/2024 N/A K3030-FSEZHYRX DYSTROPHIC NAILS ANY # 06/10/2024 N/A Encounters Encounter Location Date Provider Diagnosis [facility] [place] [address] [place] [id number] 06/10/2024 Krzysztof Nettles Type 2 diabetes mellitus with diabetic polyneuropathy E11.42 ; Tinea unguium B35.1 ; Other hammer toe(s) (acquired), right foot M20.41 and Other hammer toe(s) (acquired), left foot M20.42 Assessments Encounter Date Diagnosis (ICD Code) Assessment Notes Treatment Notes Treatment Clinical Notes Section Notes 06/10/2024 Type 2 diabetes mellitus with diabetic polyneuropathy (ICD-10 - E11.42) 06/10/2024 Tinea unguium (ICD-10 - B35.1) 06/10/2024 Other hammer toe(s) (acquired), right foot (ICD-10 - M20.41) Patient Educated with: DIABETIC FOOT CARE INSTRUCTIONS. pdf (DIABETIC FOOT CARE INSTRUCTIONS. pdf) 06/10/2024 Other hammer toe(s) (acquired), left foot (ICD-10 - M20.42) Plan Of Treatment Medication Medication Name Sig Start Date Stop Date Notes Extra Depth Orthopedic Shoes (1 Pair) with Customized Heat Molded Multidensity Innersoles (3 Pair) as directed Dx: NIDDM/Polyneuropathy (E11.42), Hammertoe Foot Deformity (M20.41,M20.42), Preulcerative Skin Lesion(s) (L85.1 06/10/2024 Treatment Notes Assessment Notes Other hammer toe(s) (acquired), right fo ot Patient Educated with: DIABETIC FOOT CARE INSTRUCTIONS.pdf (DIABETIC FOOT CARE INSTRUCTIONS.pdf) Pending Test Test Name Order Date 13984-ZAHGQWQ NAIL, 1-5 06/10/2024 46189-PSWW SKIN LESIONS, 2 TO 4 06/11/19 25 N3983-NRATGSXZ DYSTROPHIC NAILS ANY # Next Appt Details Follow Up: 3 Months, Reason: Provider Name:Krzsyztof Nettles , 09/16/2024 11:00:00 AM, [address] , [address], [place], [address], Procedure Notes * Category Sub-Category Detail Notes Keratoma Treatment Parring or Cutting o f Benign Hyperkeratotic Lesion(s) (-56) 2-4 Lesions - Due to the at risk nature of the patients medical condition as documented in the exam findings, performance of this keratoderma treatment is medically necessary as its management by an unskilled/untrained nonprofessional would put this patients foot and overall health at risk. Therefore, the benign hyperkeratotic lesions, (4) in total, locations as stated and described in the exam ( Plantar, T1, Plantar, T2, Plantar, IPJ, T5, SUB MTH (s), 2, Right ), were pared, and/or cut utilizing a sterile 15 blade, tissue nippers, and/or power dremel instrumentation by the physician of record - 53649 Debride Nails 1-5 Procedure: Due to the cli nical pathology outlined in the exam findings, performance of this nail treatment is medically necessary as its management by an unskilled/untrained nonprofessional would put this patients foot and overall health at risk. Therefore, debridement to affected nail(s), as described in exam ( TA, T5 ), was performed exclusively by the physician of record to reduce/remove overall nail length, girth, thickness, subungual debris, and necrotic tissue, by manual and/or electrical means through the use of a nail nipper and/or dremel stylegrinder, to a more viable healthy nail plate or bed tissue 5 nails or fewer in number. Silver nitrate was used for any petechial bleeding as necessary. Definitive antifungal treatment options, both pharmaceutical and surgical, have been reviewed and discussed with the patient. The patient solely prefers the use of intermittent/as needed professional debridement services for their nail condition and understands that additional periodic treatments may be required as necessary to maintain effective symptomatic relief - 08450 Nail Reduction Nail Reduction (-27) Trimming o f all dystrophic nails - Due to the at risk nature of the patients medical condition as documented in the exam findings, performance of this nail treatment is medically necessary as its management by an unskilled/untrained nonprofessional would put this patients foot and overall health at risk. Therefore, the dystrophic nails, in locations as stated and described in the exam ( T1, T2, T3, T4, T6, T7, T8, T9 ), were debrided by the phisician of record to reduce/remove overall nail length and girth, by manual and electrical means with use of a nail nipper and/or dremel, to more viable healthy nail plate or bed tissue - G0127 Progress Notes * Kendra MARTINEZ ADOB: [birth year] (69 yo F)Acc No.[id number]:06/10/2024 Progress Notes Patient:?Kendra MARTINEZ Provider:?Krzysztof Nettles DPM :1955???Age:69 Y???Sex:Female D ate:06/10/2024 Address:[address] [place] [address] [address] [address] Pcp:Mireya Downing MD Subjective: * Chief Complaints: * ???At Risk FootcareToe Irrit ation * HPI: ???At Risk footcare:?Pt States Last PCP Visit:?Date?06/02/2024 ?Misc?Patient accompanied by, Daughter,EDWIN, who is physically present in exam room at time of visit.?Toe pain:?Location:?B/L feet.?Duration:?several years.?Course:?worse.?Aggravated by:?shoes, any pressure.?Treatments:?change in shoes.? * ROS:?General/Constitutional:?Nausea?denies.?Vomiting?denies.?Hunger Thirst?denies.?Loss appetite?denies.?Chills?denies.?Fatigue?denies.?Fever?denies.?Night Sweats?denies.?Unexplained weight loss?denies.?Unexplained weight gain?denies.?HEENTM:?Dentures?denies.?Dizziness?denies.?Glasses/contacts?denies.?Retinopathy?den ies.?Blurred/double vision?denies.?TMJ?denies.?Discharge/drainage?denies.?Implants?denies.?Sore throat?denies.?Dental implants?denies.?Hard of hearing ?denies.?Difficulty chewing/swallowing/speaking?denies.?Nose bleeds?denies.?Sore mouth?denies.?Respiratory:?On O xygen?denies.?Pneumonia/pleurisy?denies.?Bronchitis?denies.?Emphysema?denies.?Co ughing?denies.?Cough blood?denies.?Shortness of breath?denies.?Wheezing?denies.?Cardiovascular:?Pacemaker?denies.?MVP?denies.?WPW?denies.?CHF?denies.?Heart attack?denies.?Septal defect?denies.?Rapid beat?denies.?Chest pain ?denies.?Atrial Fib.?denies.?Murmur/Palpitations?denies.?Gastrointestinal:?Hemorrhoids?denies.?Stomach/Abdominal pain?denies.?Dark blood stool?denies.?Irritable bowel ?denies.?Constipation?denies.?Diarrhea?denies.?Hematology:?Swelling?denies.?Clots?denies.?Varicose Veins?denies.?Bruising?admits, on anticoagulants.?Bleeding problem?admits, on anticoagulants.?Genitourinary:?Blood urine?denies.?Frequent/Painfu/urination/bladder control?denies.?Kidney stones?denies.?Infection (UTI)?denies.?Nephropathy?denies.?sex trans dis (STD)?denies.?Prostate?denies.?Musculoskeletal:?Hammertoes?admits.?Bunions?denies.?Back Pain?denies.?Muscle Cramps/ Resting?denies.?Muscle cramps / walking?denies.?Generalized aches and pains?denies.?Weakness?denies.?Integ.:?Joshi?denies.?Scars?denies.?Corns/calluses?admits.?Ingrown nails?admits.?Painful nails?denies.?Open Sores?denies.?Rashes?denies.?Neurologic:?Difficulty sleeping?denies.?Brain disorder?denies.?Numbness?admits.?Balance trouble?denies.?Confusion?denies.?Fainting/blackouts?denies.?Tingling?admits, bilateral lower extremities, in the toes, that is moderate, which is constant.?Tremors?denies.? * Medical History:? * Surgical History:?No Surgica l History documented. * Hospitalization/Major Diagno stic Procedure:?No Hospitalization History. * Family History:?Mother: dece ased, diagnosed with Diabetic - NIDDM, Unspecified essential hypertension, Family history of arthritis.?Father: , Foot problems, diagnosed with Diabetic - NIDDM, Unspecified essential hypertension, Unspecified cerebral artery occlusion with cerebral infarction.?Siblings: diagnosed with Diabetic - NIDDM.? * Social History:?Tobacco Use:?Tobacco use other than smoking?Are you an other tobacco user??No ?Tobacco Control (Standard)?Tobacco use:?Nonsmoker ?Additional Findings: Tobacco non-user?Current nonsmoker ???Drugs/Alcohol:?Drugs?Have you used drugs other than those for medical reasons in the past 12 months??No ???Miscellaneous:?Caffeine: yes. ?Children: yes. ?Exercise: yes. ?Marital status: . ?Occupation: N/A. ???Drug/Alcohol:?AUDIT-C (Standard)?Did you have a drink containing alcohol in the past year??No ?Points?0 ?Interpretation?Negative * Medications:?TakingMelatonin 5 MG Tablet 1 tablet Orally as needed Lantus , Notes to Pharmacist: 10 unitsHumaLOG ARIPiprazole 15 MG Tablet 1 tablet Orally Once a day Eliquis 5 MG Tablet as directed Orally Atorvastatin Calcium 40 MG Tablet 1 tablet Orally Once a day Losartan Potassium 25 MG Tablet 1 tablet Orally Once a day Medication List reviewed and reconciled with the patientTaking Melatonin 5 MG Tablet 1 tablet Orally as needed Taking Lantus , Notes to Pharmacist: 10 unitsTaking HumaLOG Taking ARIPiprazole 15 MG Tablet 1 tablet Orally Once a day Taking Eliquis 5 MG Tablet as directed Orally Taking Atorvastatin Calcium 40 MG Tablet 1 tablet Orally Once a day Taking Losartan Potassium 25 MG Tablet 1 tablet Orally Once a day Medication List reviewed and reconciled with the patient * Allergies:?Lisinoprilyes[All ergies Verified] Objective: * Vitals:?Ht: 4ft 11in, Wt:158 , BMI:31.91, Shoe size: 7.5-8, BS: 315, Ht-cm: 149.86 cm, Wt-k.67 kg. * ???Past Orders: ???Lab:HEMOGLOBIN A1C (GLYCO HEMOGLOBIN) (Order Date - 05/04/2024) (Collection Date & Time - 05/04/2024 11:01 AM) ? Value Reference Range ?HEMOGLOBIN A1C % (HH) 4.9 * Examination: ???Ophthalmology Referral: ?DIABETES EYE EXAM?Procedure Performed:?Yes ?Date of Exam Performed?12/19/2023 ?Diabetic Retinopathy Screening:?Yes ?Retinal Screening Performed:?Yes ?Findings of Diabetic Eye Exam:?no retinopathy?Neurological: ?SENSORY:?Neurological exam demonstrates, reduced light touch sensation, reduced sharp/dull discrimination , reduced vibration sensation, in a stocking fashion, B/L, 5.07 monofilament test performed at plantar aspects of 5 varied sites per foot shows sensation, reduced, B/L.?Nails: ?NAILS are:?Elongated, overgrown, dystrophic, lytic, greater than 3mm thick, discolored and friable with crumbly malodorous subungual debris ( TA, T5 ), all other nails not described with characteristics as possessing mycosis are elongated, overgrown, and dystrophic ( T1, T2, T3, T4, T6, T7, T8, T9 ), NELIA-HORN appearance 10mm thickness or greater noted, TA, T5.?Dermatologic: ?SKIN FINDINGS:?Skin exam reveals Keratotic lesion(s) located at, Plantar, T1, Plantar, T2, Plantar, IPJ, T5, SUB MTH (s), 2, Right.?Orthopedic: ?MUSCLE STRENGTH:?5/5 all groups in a symmetrical fashion, B/L.?FOOT MORPHOLOGY:?(-) Charcot collapse/destruction noted at MTJ.?DIGITAL DEFORMITIES:?Digital contracture, PIPJ, 2-5 B/L, incompl-reducible to push-up test, no over, nor underlapping,?there is?evidence of shoe producing skin irritation.?FOOTWEAR EVALUATION:?worn, non-supportive, shoe gear properties exacerbate patient's foot/toe deformity.?Vascular: ?DP PULSES (B):?1/4, B/L.?PT PULSES (B):?/4, B/L.?CAPILLARY FILL TIME:?3 secs. per digit, B/L.?TROPHIC CONDITION-TEXTURE/ELASTICITY/TURGOR/HAIR GROWTH (B):?decreased, with sparse to absent hair growth, B/L.?TEMPERTURE GRADIENT (C):?decreased, cool to cool, proximal to distal, B/L.?PIGMENTATION:?mottled, B/L.?EDEMA (C):?absent, B/L.?CLAUDICATION (C):?denies, B/L.?REST PAIN:?denies, B/L.?General Examination: ?GENERAL APPEARANCE:?Reveals a pleasant, alert, well nourished, well- developed, well hydrated individual, who demonstrates proper attention to hygiene/body habitus, and is in no acute distress, Pt serves as own historian for office visit today.?ORIENTED:?person, place, and time.?FOOT EXAM:?Lower Extremity Neurological Exam performed:?Yes Date ?Visual exam of foot performed:?Yes ?Date?06/10/2024 ?Footwear Evaluation?Footwear Evaluation performed:?Yes??? Assessment: * Assessment: 1.?Tinea unguium - B35.1???2 .?Type 2 diabetes mellitus with diabetic polyneuropathy - E11.42 (Primary)???3.?Other hammer toe(s) (acquired), right foot - M20.41???Specify :Chronic problem, Worse (4),Rx Management (4)???4.?Other hammer toe(s) (acquired), left foot - M20.42???Specify :Chronic problem, Worse (4),Rx Management (4)??? Plan: * Treatment: 2.?Other hammer toe(s) (acqu ired), right foot? Start Extra Depth Orthopedic Shoes (1 Pair) with Customized Heat Molded Multidensity Innersoles (3 Pair), as directed, Dx: NIDDM/Polyneuropathy (E11.42), Hammertoe Foot Deformity (M20.41,M20.42), Preulcerative Skin Lesion(s) (L85.1, 1, Refills 0.?? Notes: Patient Educated with: DIABETIC FOOT CARE INSTRUCTIONS.pdf (DIABETIC FOOT CARE INSTRUCTIONS.pdf)?? * Procedures:?Debride Nails 1-5:?Procedure:?Due to the clinical pathology outlined in the exam findings, performance of this nail treatment is medically necessary as its management by an unskilled/untrained nonprofessional would put this patients foot and overall health at risk. Therefore, debridement to affected nail(s), as described in exam ( TA, T5 ?), was performed exclusively by the physician of record to reduce/remove overall nail length, girth, thickness, subungual debris, and necrotic tissue, by manual and/or electrical means through the use of a nail nipper and/or dremel stylegrinder, to a more viable healthy nail plate or bed tissue 5 nails or fewer in number. Silver nitrate was used for any petechial bleeding as necessary. Definitive antifungal treatment options, both pharmaceutical and surgical, have been reviewed and discussed with the patient. The patient solely prefers the use of intermittent/as needed professional debridement services for their nail condition and understands that additional periodic treatments may be required as necessary to maintain effective symptomatic relief - 97748.?Keratoma Treatment:?Parring or Cutting of Benign Hyperkeratotic Lesion(s)?(-56) 2-4 Lesions - Due to the at risk nature of the patients medical condition as documented in the exam findings, performance of this keratoderma treatment is medically necessary as its management by an unskilled/untrained nonprofessional would put this patients foot and overall health at risk. Therefore, the benign hyperkeratotic lesions, (4) in total, locations as stated and described in the exam (?Plantar,?T1,?Plantar,?T2,?Plantar,?IPJ,?T5,?SUB MTH (s),?2,?Right?), were pared, and/or cut utilizing a sterile 15 blade, tissue nippers, and/or power dremel instrumentation by the physician of record - 52318.?Nail Reduction:?Nail Reduction?(-27) Trimming of all dystrophic nails - Due to the at risk nature of the patients medical condition as documented in the exam findings, performance of this nail treatment is medically necessary as its management by an unskilled/untrained nonprofessional would put this patients foot and overall health at risk. Therefore, the dystrophic nails, in locations as stated and described in the exam (?T1, T2, T3, T4, T6, T7, T8, T9?), were debrided by the phisician of record to reduce/remove overall nail length and girth, by manual and electrical means with use of a nail nipper and/or dremel, to more viable healthy nail plate or bed tissue - G0127.? * Procedure Codes:?G0127 SUNITA ING DYSTROPHIC NAILS ANY #, Modifiers: XS 33270 DEBRIDE NAIL, 1-5, Modifiers: XS 36371 TRIM SKIN LESIONS, 2 TO 4, Modifiers: XS * Preventive Medicine:? ??Counseling:?Discussion:?-04: Office or other outpatient visit for the evaluation and management of a new patient, which required a medically appropriate history and/or examination and MODERATE level of DECISION MAKING for: 1 OR MORE CHRONIC PROBLEM(S) THATS WORSENING, 2 STABLE CHRONIC PROBLEMS, A NEWLY DIAGNOSED PROBLEM WITH UNCERTAIN PROGNOSIS, AN ACUTE COMPLICATED INJURY WITH MULTIPLE TREATMENT OPTIONS, OR AN ACUTE PROBLEM WITH ACCOMPANYING SYSTEMIC SYMPTOMS, THAT POSE(S) A MODERATE RISK OF MORBIDITY. THIS CONDITION MAY ALSO INCLUDE RX DRUG MANAGEMENT, OR A DECISON FOR MINOR SURGERY. The visit on the day of the encounter encompassed interpreting the data and educating the patient as to the nature of their condition, treatment options available according to their individual PMH, meds, allergies, and overall health/living conditions, as well as any potential risks or complications that may occur from a failure to adhere to, and participate in, the recommended course of therapy. The discussion included a complete verbal, and/or written explanation of the examination results, any x-rays taken, the proposed diagnosis, and outline of the treatment plan. A schedule for future care needs was also explained. The patient verbalized an understanding of the instructions at this time and agreed to be an active participant in their treatment. If the patient should think of any questions or concerns after the visit, I have encouraged the patient to call the office.?Diabetic Footcare:?The patient was advised against future self nail/callus care due to inherent risks for infection, loss of limb/life given diabetes, neuropathy.?Digital Surgery:?Digital surgery was discussed with the patient, We elected to try conservative treatment at the present time, due to the patients medical history and increased asssociated post-operative risks.?Digital Treatment:?HT- I explained to the patient the possible etiologies of Hammertoes, including genetics/foot type/shoegear/activity level/exercise routine and the risks/benefits of all the different treatment options for their pain including: No treatment at all, Rest, Ice, New/supportive/wider/deeper Shoegear, Digital Padding/Strapping/Taping/Bracing/Gel protective sleeves, Foot/Ankle AFO Bracing, Stretching exercises, Deep Tissue Massage, Arch support/shoe inserts with splay metatarsal padding, and Custom orthoses. I insisted that any digital devices be removed daily and not worn overnight for safety. The patient is to carefully examine the toes daily for any skin irritation while using any splinting or padding device. The advantages and disadvantages of each option were discussed and the patients questions re: shoegear, padding, custom vs prefabricated inserts, activity level, and consistency in home treatment regimens for optimal success were answered to their verbally confirmed satisfaction.?Shoe Gear Counseling:?SHOE Rx - The patient was counseled in great detail on their muscoloskeletal foot and toe deformities which coincided with the dermatological presentations visualized on exam. We discussed how their deformities put the integrity of their feet at risk for potential pedal complications which makes the accomidative diabetic shoes and cutomizable inserts medically necessary. We discussed the different shoe and insert treatment types and options, as well as the important advantages for adhering to regularly wearing these accomidative devices daily. The patient was made aware of the fact that a failure to abide by these recommedations may be deleterious to their foot health as they are able to prevent many pedal complications such as skin irritation, skin ulceration, infection, and even loss of toe/foot/leg/or life. Time was also spent with the patient dispensing and discussing proper diabetic footcare techniques including daily skin moisturization, daily foot inspection for any interruption in skin integrity including open lesions, or sign of infection such as redness/malodor/drainage/swelling. Also discussed and recommended were procedures regarding daily shoe inspection for the presence of internal foreign bodies as well as any visualized irregular shoe or insert wear. Patient questions re: shoes, inserts, and self foot inspections were answered to their satisfaction as the patient verbally confirmed a full understanding of the above information. A Rx for Extra Depth Orthopedic Shoes with 3 pair of custom heat-molded inserts was dispensed.? ??Screening/Special Tests:?Fall Risk?Screening:?No falls in the past year ?FALLS: Screening for Future Fall Risk?Have you had any falls with injury in the past year??No * Follow Up:?3 Months * Images: * Sign off status: Completed true * Provider:?Krzysztof Nettles DPM Date:?2024 Generated for Jesus veliz/Margo/Cedricitting on:?06/16/2024 02:26 PM EDT History and Physical Notes * HPI (History of Present Illness) Category Sub-Category Detail Notes Category Not es Toe pain Location: B/L feet Duration: several years Course: worse Aggravated by: shoes, any pressure Treatments: change in shoes At Risk footcare Pt States Last PCP Visit: Date: 5 [facility] [place] Patient accompanied by, Daughter, EDWIN, who is physically present in exam room at time of visit Examination Category Sub-Category Detail Notes Category Not es Neurological SENSORY: Neurological exa m demonstrates, reduced light touch sensation, reduced sharp/dull discrimination , reduced vibration sensation, in a stocking fashion, B/L, 5.07 monofilament test performed at plantar aspects of 5 varied sites per foot shows sensation, reduced, B/L Dermatologic SKIN FINDINGS: Skin exam reveal s Keratotic lesion(s) located at, Plantar, T1, Plantar, T2, Plantar, IPJ, T5, SUB MTH (s), 2, Right Orthopedic FOOT MORPHOLOGY: (-) Charcot col lapse/destruction noted at MTJ FOOTWEAR EVALUATION: worn, non-supportiv e, shoe gear properties exacerbate patient's foot/toe deformity DIGITAL DEFORMITIES: Digital contracture , PIPJ, 2-5 B/L, incompl-reducible to push-up test, no over, nor underlapping, there is evidence of shoe producing skin irritation MUSCLE STRENGTH: 5/5 all groups in a symmetrical fashion, B/L General Examination GENERAL APPEARANCE: Reveals a pleasant, alert, well nourished, well-developed, well hydrated individual, who demonstrates proper attention to hygiene/body habitus, and is in no acute distress, Pt serves as own historian for office visit today FOOT EXAM: Lower Extremity Neurological Exa m performed:: Yes Date Visual exam of foot performed:: Yes Date: 06/10/2024 ORIENTED: person, place, and t tyshawn Footwear Evaluation Footwear Evaluation performe d:: Yes Ophthalmology Referral DIABETES EYE EXAM Procedure Perform ed:: Yes ?Date of Exam Performed: 12/19/2023 Diabetic Retinopathy Screening:: Yes Retinal Screening Performed:: Yes Findings of Diabetic Eye Exam:: no retin opathy Vascular DP PULSES (B): 1/4, B/L PT PULSES (B): 1/4, B/L CAPILLARY FILL TIME: 3 secs. per digit, B/L TEMPERTURE GRADIENT (C): decreased, cool to cool, proximal to distal, B/L TROPHIC CONDITION-TEXTURE/ELASTICITY/TURGOR/HAIR GROWTH (B): decreased, with sparse to absent hair gr owth, B/L EDEMA (C): absent, B/L CLAUDICATION (C): denies, B/L REST PAIN: denies, B/L PIGMENTATION: mottled, B/L Nails NAILS are: Elongated, overg rown, dystrophic, lytic, greater than 3mm thick, discolored and friable with crumbly malodorous subungual debris ( TA, T5 ), all other nails not described with characteristics as possessing mycosis are elongated, overgrown, and dystrophic ( T1, T2, T3, T4, T6, T7, T8, T9 ), NELIA-HORN appearance 10mm thickness or greater noted, TA, T5
== END 2024-06-16 13:09 | disposition home or self-care (01) ==
LOC: HO.BBR 13:08
PROVIDERS: Visit Provider Physician Assistant Medical
DX: E83.111 Hemochromatosis due to repeated red blood cell transfusions (principal)
CPT/HCPCS: 85014; 85018; 99195

== ENCOUNTER 2024-06-23 13:13 | Outpatient (REF) | payer OTHER, SELFPAY ==
--- OUTSIDE RECORDS SUMMARY | 2024-06-23 14:27 | XMS_ITS | Patient Health Record ---
[facility] Organization [facility] Address [address] [place] [address] Care Team Providers Care Ortho Rn Name Role Phone Mireya Downing MD Primary Care Provider UnavailKrzysztof Schumacher Unavailable [phone] Leila Crowder Unavailable [phone] Allergies Allergen (clinical drug ingredient) Drug/Non Drug [...] Problem Acquired hammer toe of right foot (2656424637523742 ) Other hammer toe(s) (acquired), right foot (M20.41) Active confirmed Problem Acquired hammer toe of left foot (2888564453769523 ) Other hammer toe(s) (acquired), left foot (M20.42) Active confirmed Problem Polyneuropathy due to type 2 diabetes mellitus (568678020) Type 2 diabetes mellitus with diabetic polyneuropathy (E11.42) Active confirmed Vital Signs Height 4ft 11in in 06/10/2024 Weight 158 lbs 06/10/2024 BMI 31.91 kg/m2 06/10/2024 Procedures Procedure Date Ordered Date Performed Result Body Sit e 17968-RWBESYO NAIL, 1-5 06/10/2024 N/A 26705-ZONZ SKIN LESIONS, 2 TO 4 06/10/2024 N/A X3821-CFZOIMGO DYSTROPHIC NAILS ANY # 06/10/2024 N/A Encounters Encounter Location Date Provider Diagnosis [facility] [address] 06/10/2024 Krzysztof Nettles Type 2 diabetes mellitus with diabetic polyneuropathy E11.42 ; Tinea unguium B35.1 ; Other hammer toe(s) (acquired), right foot M20.41 and Other hammer toe(s) (acquired), left foot M20.[address] [facility] [address] 03/16/2024 Leila Crowder Assessments Encounter Date Diagnosis [...] Treatment Pending Test Test Name Order Date 82225-FKMGZFO NAIL, 1-5 06/10/2024 79361-ACEO SKIN LESIONS, 2 TO 4 06/11/19 25 M5223-LCYESSUO DYSTROPHIC NAILS ANY # Next Appt Details Provider Name:Krzysztof Jovana Nettles , 09/16/2024 11:00:00 AM, [address] [facility], [facility] [address], [place], [address], Insurance Providers Payer Name Payer Address Payer Phone Subscriber Number Group Number Insured Name Patient Relationship to Insured Coverage Start Date Coverage End Date [facility] CCA SCO Claims [address] [place] [id number] [phone] [id number] Kendra Martinez Self - patient is the insured Medical (General) History Medical History History ICD Code Anxiety CAD (Cholesterol) Dementia Diabetic High Blood Pressure Stroke hemochromatosis Cirrhosis, liver
--- OUTSIDE RECORDS SUMMARY | 2024-06-23 14:27 | XMS_ITS ---
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 Generated for Printi ng/Faxing/eTransmitting on:?06/23/2024 02:27 PM EDT
--- OUTSIDE RECORDS SUMMARY | 2024-06-23 14:28 | XMS_ITS ---
Author Organization [facility] Address [address] [place] [address] Care Team Providers Care Circular Head Saw Operator Name Role Phone Mireya Downing MD Primary Care Provider Unavailtwyla e Krzysztof Nettles Unavailable [phone] Allergies Allergen (clinical drug ingredient) Drug/Non Drug [...] Polyneuropathy due to type 2 diabetes mellitus (917256358) Type 2 diabetes mellitus with diabetic polyneuropathy (E11.42) Active confirmed Problem Acquired hammer toe of right foot (2376324459666534 ) Other hammer toe(s) (acquired), right foot (M20.41) Active confirmed Problem Acquired hammer toe of left foot (6585823265137783 ) Other hammer toe(s) (acquired), left foot (M20.42) Active confirmed Vital Signs Height 4ft 11in in 06/10/2024 Weight 158 lbs 06/10/2024 BMI 31.91 kg/m2 06/10/2024 Procedures Procedure Date Ordered Date Performed Result Body Sit e 41131-PHPIJBM NAIL, 1-5 06/10/2024 N/A 43197-ECIG SKIN LESIONS, 2 TO 4 06/10/2024 N/A B1430-GZMAHJLE DYSTROPHIC NAILS ANY # 06/10/2024 N/A Encounters Encounter Location Date Provider Diagnosis [facility] [address] [place] [address] 06/10/2024 Krzysztof Nettles Type 2 diabetes mellitus [...] INSTRUCTIONS.pdf) Pending Test Test Name Order Date 70867-HVYKVBW NAIL, 1-5 06/10/2024 44769-INPI SKIN LESIONS, 2 TO 4 06/11/19 25 M7716-THOLSSAV DYSTROPHIC NAILS ANY # Next Appt Details Follow Up: 3 Months, Reason: Provider Name:Krzysztof Nettles , 09/16/2024 11:00:00 AM, [address], [place], [address], Procedure Notes * Category Sub-Category Detail Notes [...] instrumentation by the physician of record - 24119 Debride Nails 1-5 Procedure: Due to the [...] necessary to maintain effective symptomatic relief - 02098 Nail Reduction Nail Reduction (-27) Trimming o [...] Kendra MARTINEZ ADOB: [birth year] (69 yo F)Acc No.[id number]:06/10/2024 Progress Notes Patient:?Kendra MARTINEZ Provider:?Krzysztof Nettles DPM :1955???Age:69 Y???Sex:Female D ate:06/10/2024 Address:[address] [place] [address] [address] [address] Pcp:Mireya Downing MD Subjective: * Chief Complaints: [...] necessary to maintain effective symptomatic relief - 81229.?Keratoma Treatment:?Parring or Cutting of Benign Hyperkeratotic Lesion(s)?(-56) [...] instrumentation by the physician of record - 61946.?Nail Reduction:?Nail Reduction?(-27) Trimming of all dystrophic nails [...] ING DYSTROPHIC NAILS ANY #, Modifiers: XS 55356 DEBRIDE NAIL, 1-5, Modifiers: XS 14663 TRIM SKIN LESIONS, 2 TO 4, Modifiers: [...] Provider:?Krzysztof Nettles DPM Date:?2024 Generated for Jesus veliz/Margo/Guillermo on:?06/23/2024 02:27 PM EDT History and Physical Notes * HPI (History of Present Illness) Category Sub-Category Detail Notes Category Not es Toe pain Location: B/L feet Duration: several years Course: worse Aggravated by: shoes, any pressure Treatments: change in shoes At Risk footcare Pt States Last PCP Visit: Date: 5 [facility] Patient accompanied by, Daughter, EDWIN, who is [...]
--- OUTSIDE RECORDS SUMMARY | 2024-06-23 14:28 | XMS_ITS ---
Author Organization [facility] Address [address] [place] [address] Care Team Providers Care Collating Machine Operator Name Role Phone Mireya Downing MD Primary Care Provider UnavailKrzysztof Schumacher Unavailable [phone] Leila Crowder [phone] Encounters Encounter Location Date [facility] [address] 03/19/2024 Leila Crowder Plan Of Treatment Next Appt Details Provider Name:Krzysztof Nettles , 09/16/2024 11:00:00 AM, [address] [place] [address], [address], Progress Notes * Kendra MARTINEZ ADOB: [birth year] (69 yo F)Acc No.[id number]:03/19/2024 Progress Notes Patient:?Latisha MARTINEZjanuary [place] Provider:?Leila Crowder DPM :1955???Age:68 Y???Sex:Female D ate:03/19/2024 Address:[address] [place], [place] [address] Pcp:Mireya Downing MD Subjective: * Chief Complaints: [...] DPM Date:?0 03/19/2024 Generated for Jesus veliz/Margo/Guillermo on:?06/23/2024 02:27 PM EDT
--- OUTSIDE RECORDS SUMMARY | 2024-06-23 14:28 | XMS_ITS | Clinical Summary ---
Author Organization [facility] Address [address] [place] [address] Care Team Providers Care Diesel Inspector Name Role Phone Unavailable Primary Care Provider [...] Procedure Name Priority Date/Time Associated Diagnosis Comments [facility] SCREENING DIGITAL Routine 03/17/2019 10:29 AM EST Encounter for screening mammogram for malignant neoplasm of breast from Last 3 Months or Most Recently Relevant to Health Maintenance Results * ALICE SCREENING DIGITAL (03/17/2019 10:29 AM EST) Anatomical Region Laterality Modality Mammography 03/17/2019 9:18 AM EST Narrative 03/17/2019 10:29 AM EST [facility] Diagnostic Imaging Department [address] [place] [address] Patient: ??KENDRA MARTINEZ ?/Age/Sex: 1955 - 63 - F Unit#: ??[id number] ? Location/Status: ??SPDIMAM/REG CLI ? Mnemonic/Ordering Site: ??DIGSC/SPMAM Ordering Physician: ??EVA HARVEY MD Alice Screening Digital - 03/17/19943 INDICATION: SCREENING COMPARISON: No prior studies are available for comparison. TECHNIQUE: CC and MLO views of the breasts were obtained, using full field digital mammography with 3D tomosynthesis views in the MLO projection. Computer aided detection with the [employer] 7.2-H was employed. FINDINGS: The breast tissue [...] additional imaging evaluation. 3340F, 7025F (G0202 / 52990) , ??32916 Dictating Physician: ??J LUIS COTTRELL MD Electronically Signed by: ??J LUIS COTTRELL MD Dic Date/Time: ??03/17/19 1024 Sign date/Time: ??03/17/19 1029 Procedure Note J Luis Cottrell - 02/06/2022 [facility] Diagnostic Imaging Department [address] [place] [id number] Patient: KENDRA MARTINEZ D.O.B./Age/Sex: 1955 - 63 - F Unit#: [id number] [facility]ing Site[facility] Ordering Physician: EVA HARVEY MD Alice Screening Digital - 03/17/19 - 0944 INDICATION: SCREENING COMPARISON: No prior studies are available for comparison. TECHNIQUE: CC and MLO views of the breasts were obtained, using full field digital mammography with 3D tomosynthesis views in the MLO projection. Computer aided detection with the [employer] 7.2-H was employed. FINDINGS: The breast tissue [...] needs additional imaging evaluation.3340F, 7025F (G0202 / 72528) , 36293 Dictating Physician: J LUIS COTTRELL MD Electronically Signed by: J LUIS COTTRELL MD Dic Date/Time: 03/17/19 1024 Sign date/Time: 03/17/19 1029 us Eva Harvey MD IMG BI PROCEDURES Final Resul t from Last 3 Months or Most Recently Relevant to Health Maintenance
== END 2024-06-23 13:14 | disposition home or self-care (01) ==
LOC: HO.BBR 13:13
PROVIDERS: Visit Provider Physician Assistant Medical
DX: E83.119 Hemochromatosis, unspecified (principal)
CPT/HCPCS: 85014; 85018; 99195

== ENCOUNTER 2024-07-08 12:48 | Outpatient (REF) | payer OTHER, SELFPAY ==
--- OUTSIDE RECORDS SUMMARY | 2024-07-08 12:52 | XMS_ITS ---
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 Encounters Encounter Location Date Provider [facility] [address] [place] [address] 03/16/2024 Leila Crowder Plan Of Treatment Next Appt Details Provider Name:Krzysztof Nettles , 09/16/2024 11:00:00 AM, [address] [address], [place], [address], Progress Notes * Kendra MARTINEZ ADOB: [birth year] (68 yo F)Acc No.[id number]:03/16/2024 Patient:?Kendra MARTINEZ :1955???Age:68 Y???Sex:Female Address:[address] [place] [address] [address], [address] * true * Date:? Generated for Printi ng/Faxing/eTransmitting on:?07/08/2024 12:51 PM EDT
--- OUTSIDE RECORDS SUMMARY | 2024-07-08 12:52 | XMS_ITS | Clinical Summary ---
Author Organization [facility] ity Address [address] [place] [address] Care Team Providers Care Gravity Prospector Name Role Phone Unavailable Primary Care Provider [...] Procedure Name Priority Date/Time Associated Diagnosis Comments [facility] SCREENING DIGITAL Routine 03/17/2019 10:29 AM EST Encounter for screening mammogram for malignant neoplasm of breast from Last 3 Months or Most Recently Relevant to Health Maintenance Results * ALICE SCREENING DIGITAL (03/17/2019 10:29 AM EST) Anatomical Region Laterality Modality Mammography 03/17/2019 9:18 AM EST Narrative 03/17/2019 10:29 AM EST [facility] Diagnostic Imaging Department [address] [place] [address] Patient: ??KENDRA MARTINEZ ?/Age/Sex: 1955 - 63 - F Unit#: ??[id number] ? Location/Status: ??SPDIMAM/REG CLI ? Mnemonic/Ordering Site: ??DIGSC/SPMAM Ordering Physician: ??EVA HARVEY MD Alice Screening Digital - 03/17/19943 INDICATION: SCREENING COMPARISON: No prior studies are available for comparison. TECHNIQUE: CC and MLO views of the breasts were obtained, using full field digital mammography with 3D tomosynthesis views in the MLO projection. Computer aided detection with the [employer] 7.2-H was employed. FINDINGS: The breast tissue [...] additional imaging evaluation. 3340F, 7025F (G0202 / 01315) , ??51300 Dictating Physician: ??J LUIS COTTRELL MD Electronically Signed by: ??J LUIS COTTRELL MD Dic Date/Time: ??03/17/19 1024 Sign date/Time: ??03/17/19 1029 Procedure Note J Luis Cottrell - 02/06/2022 [facility] Diagnostic Imaging Department [address] [place] [id number] Patient: KENDRA MARTINEZ D.O.B./Age/Sex: 1955 - 63 - F Unit#: [id number] [facility] Ordering Physician: EVA HARVEY MD Alice Screening Digital - 03/17/19 - 0944 INDICATION: SCREENING COMPARISON: No prior studies are available for comparison. TECHNIQUE: CC and MLO views of the breasts were obtained, using full field digital mammography with 3D tomosynthesis views in the MLO projection. Computer aided detection with the [employer] 7.2-H was employed. FINDINGS: The breast tissue [...] needs additional imaging evaluation.3340F, 7025F (G0202 / 20897) , 21496 Dictating Physician: J LUIS COTTRELL MD Electronically Signed by: J LUIS COTTRELL MD Dic Date/Time: 03/17/19 1024 Sign date/Time: 03/17/19 1029 us Eva Harvey MD IMG BI PROCEDURES Final Resul t from Last 3 Months or Most Recently Relevant to Health Maintenance
--- OUTSIDE RECORDS SUMMARY | 2024-07-08 12:52 | XMS_ITS | Patient Health Record ---
Author [facility] Address [address] [place] [address] Care Team Providers Care Preliminary School Psychologist Name Role Phone Mireya Downing MD Primary Care Provider UnavailKrzysztof Schumacher Unavailable [phone] Leila Crowder Unavailable [phone] Allergies Allergen (clinical drug ingredient) Drug/Non Drug [...] Problem Acquired hammer toe of right foot (2643052013549448 ) Other hammer toe(s) (acquired), right foot (M20.41) Active confirmed Problem Acquired hammer toe of left foot (8775590687712593 ) Other hammer toe(s) (acquired), left foot (M20.42) Active confirmed Problem Polyneuropathy due to type 2 diabetes mellitus (473837060) Type 2 diabetes mellitus with diabetic polyneuropathy (E11.42) Active confirmed Vital Signs Height 4ft 11in in 06/10/2024 Weight 158 lbs 06/10/2024 BMI 31.91 kg/m2 06/10/2024 Procedures Procedure Date Ordered Date Performed Result Body Sit e 64105-UJCZUEW NAIL, 1-5 06/10/2024 N/A 12447-OBVV SKIN LESIONS, 2 TO 4 06/10/2024 N/A D6215-DAITAAVI DYSTROPHIC NAILS ANY # 06/10/2024 N/A Encounters Encounter Location Date Provider Diagnosis [facility] [address] 06/10/2024 Krzysztof Nettles Type 2 diabetes mellitus with diabetic polyneuropathy E11.42 ; Tinea unguium B35.1 ; Other hammer toe(s) (acquired), right foot M20.41 and Other hammer toe(s) (acquired), left foot M20.[address] [facility] [address] 03/16/2024 Leila Crowder Assessments Encounter Date Diagnosis [...] Treatment Pending Test Test Name Order Date 10026-ZASMMUW NAIL, 1-5 06/10/2024 41303-QRLQ SKIN LESIONS, 2 TO 4 06/11/19 25 G7719-WHOSIBZL DYSTROPHIC NAILS ANY # Next Appt Details Provider Name:Krzysztof Jovana Nettles , 09/16/2024 11:00:00 AM, [address] [facility], [facility] [address], [place], [address], Insurance Providers Payer Name Payer Address Payer Phone Subscriber Number Group Number Insured Name Patient Relationship to Insured Coverage Start Date Coverage End Date [facility] [employer] SCO Claims [address] [place] [id number] [phone] [id number] Kendra Martinez Self - patient is the insured Medical (General) History Medical History History ICD Code Anxiety CAD (Cholesterol) Dementia Diabetic High Blood Pressure Stroke hemochromatosis Cirrhosis, liver
--- OUTSIDE RECORDS SUMMARY | 2024-07-08 12:52 | XMS_ITS ---
Author Organization [facility] Address [address] [place] [address] Care Team Providers Care Profile Saw Operator Name Role Phone Mireya Downing MD Primary Care Provider Unavailtwyla e Krzysztof Nettles Unavailable [phone] Allergies Allergen (clinical drug ingredient) Drug/Non Drug [...] Polyneuropathy due to type 2 diabetes mellitus (637374875) Type 2 diabetes mellitus with diabetic polyneuropathy (E11.42) Active confirmed Problem Acquired hammer toe of right foot (6898346990544994 ) Other hammer toe(s) (acquired), right foot (M20.41) Active confirmed Problem Acquired hammer toe of left foot (8362555480528430 ) Other hammer toe(s) (acquired), left foot (M20.42) Active confirmed Vital Signs Height 4ft 11in in 06/10/2024 Weight 158 lbs 06/10/2024 BMI 31.91 kg/m2 06/10/2024 Procedures Procedure Date Ordered Date Performed Result Body Sit e 97617-DKASLMH NAIL, 1-5 06/10/2024 N/A 27471-YYBC SKIN LESIONS, 2 TO 4 06/10/2024 N/A T0152-JAULEFXX DYSTROPHIC NAILS ANY # 06/10/2024 N/A Encounters Encounter Location Date Provider Diagnosis [facility] [address] [place] [address] 06/10/2024 Krzysztof Nettles Type 2 diabetes mellitus [...] INSTRUCTIONS.pdf) Pending Test Test Name Order Date 97711-CPXYETY NAIL, 1-5 06/10/2024 66323-LIRL SKIN LESIONS, 2 TO 4 06/11/19 25 A8487-DDPEMGVZ DYSTROPHIC NAILS ANY # Next Appt Details Follow Up: 3 Months, Reason: Provider Name:Krzysztof Nettles , 09/16/2024 11:00:00 AM, [address], [place], [address], Procedure Notes * Category Sub-Category Detail Notes [...] instrumentation by the physician of record - 99452 Debride Nails 1-5 Procedure: Due to the [...] necessary to maintain effective symptomatic relief - 34973 Nail Reduction Nail Reduction (-27) Trimming o [...] Kendra MARTINEZ ADOB: [birth year] (69 yo F)Acc No.[id number]:06/10/2024 Progress Notes Patient:?Kendra MARTINEZ Provider:?Krzysztof Nettles DPM :1955???Age:69 Y???Sex:Female D ate:06/10/2024 Address:[address] [place] [address] [address] [address] Pcp:Mireya Downing MD Subjective: * Chief Complaints: [...] Cramps/ Resting?denies.?Muscle cramps / walking?denies.?Generalized aches and pains?denies.?Weakness?denies.?Integ.:?Josih?denies.?Scars?denies.?Corns/calluses?admits.?Ingrown nails?admits.?Painful nails?denies.?Open Sores?denies.?Rashes?denies.?Neurologic:?Difficulty sleeping?denies.?Brain disorder?denies.?Numbness?admits.?Balance trouble?denies.?Confusion?denies.?Fainting/blackouts?denies.?Tingling?admits, bilateral [...] necessary to maintain effective symptomatic relief - 44303.?Keratoma Treatment:?Parring or Cutting of Benign Hyperkeratotic Lesion(s)?(-56) [...] instrumentation by the physician of record - 92805.?Nail Reduction:?Nail Reduction?(-27) Trimming of all dystrophic nails [...] ING DYSTROPHIC NAILS ANY #, Modifiers: XS 41638 DEBRIDE NAIL, 1-5, Modifiers: XS 10297 TRIM SKIN LESIONS, 2 TO 4, Modifiers: [...] Nettles DPM Date:?2024 Generated for Jesus veliz/Margo/Guillermo on:?07/08/2024 12:52 PM EDT History and Physical Notes * HPI (History of Present Illness) Category Sub-Category Detail Notes Category Not es Toe pain Location: B/L feet Duration: several years Course: worse Aggravated by: shoes, any pressure Treatments: change in shoes At Risk footcare Pt States Last PCP Visit: Date: 5 [facility] Patient accompanied by, Daughter, EDWIN, who is [...]
--- OUTSIDE RECORDS SUMMARY | 2024-07-08 12:52 | XMS_ITS ---
Author Organization [facility] Address [address] [place] [address] Care Team Providers Care Threat Analyst Name Role Phone Mireya Downing MD Primary Care Provider UnavailKrzysztof Schumacher Unavailable [phone] Leila Crowder [phone] Encounters Encounter Location Date [facility] [address] 03/19/[facility] Leila Crowder Plan Of Treatment Next Appt Details Provider Name:Krzysztof Nettles , 09/16/2024 11:00:00 AM, [address] [place] [address], [address], Progress Notes * Kendra MARTINEZ ADOB: [birth year] (69 yo F)Acc No.[id number]:03/19/2024 Progress Notes Patient:?Latisha MARTINEZjanuary [place] Provider:?Leila Crowder DPM :1955???Age:68 Y???Sex:Female D ate:03/19/2024 Address:[address] [place], [place] [address] Pcp:Mireya Downing MD Subjective: * Chief Complaints: [...] DPM Date:?0 03/19/2024 Generated for Jesus veliz/Margo/Guillermo on:?07/08/2024 12:52 PM EDT
== END 2024-07-08 12:49 | disposition home or self-care (01) ==
LOC: HO.BBR 12:48
PROVIDERS: Visit Provider Physician Assistant Medical
DX: E83.119 Hemochromatosis, unspecified (principal)
CPT/HCPCS: 85014; 85018; 99195

== ENCOUNTER 2024-07-23 13:09 | Outpatient (REF) | payer OTHER, SELFPAY ==
--- OUTSIDE RECORDS SUMMARY | 2024-07-23 13:11 | XMS_ITS | Patient Health Record ---
Author Organization [facility] Address [address] [place] [address] Care Team Providers Care Momd Teacher Name Role Phone Mireya Downing MD Primary Care Provider UnavailKrzysztof Schumacher Unavailable [phone] Leila Crowder Unavailable [phone] Allergies Allergen (clinical drug ingredient) Drug/Non Drug [...] Problem Acquired hammer toe of right foot (9738170358898021 ) Other hammer toe(s) (acquired), right foot (M20.41) Active confirmed Problem Acquired hammer toe of left foot (8521371307025936 ) Other hammer toe(s) (acquired), left foot (M20.42) Active confirmed Problem Polyneuropathy due to type 2 diabetes mellitus (713850291) Type 2 diabetes mellitus with diabetic polyneuropathy (E11.42) Active confirmed Vital Signs Height 4ft 11in in 06/10/2024 Weight 158 lbs 06/10/2024 BMI 31.91 kg/m2 06/10/2024 Procedures Procedure Date Ordered Date Performed Result Body Sit e 10479-TRVLGQO NAIL, 1-5 06/10/2024 N/A 82011-WLOL SKIN LESIONS, 2 TO 4 06/10/2024 N/A D6595-LIGZPTGU DYSTROPHIC NAILS ANY # 06/10/2024 N/A Encounters Encounter Location Date Provider Diagnosis [facility] [address] 06/10/2024 Krzysztof Nettles Type 2 diabetes mellitus with diabetic polyneuropathy E11.42 ; Tinea unguium B35.1 ; Other hammer toe(s) (acquired), right foot M20.41 and Other hammer toe(s) (acquired), left foot M20.[address] [facility] [address] 03/16/2024 Leila Crowder Assessments Encounter Date Diagnosis [...] Treatment Pending Test Test Name Order Date 71473-QTILQXD NAIL, 1-5 06/10/2024 41399-LVMT SKIN LESIONS, 2 TO 4 06/11/19 25 U3646-EWADMYAH DYSTROPHIC NAILS ANY # Next Appt Details Provider Name:Krzysztof Jovana Nettles , 09/16/2024 11:00:00 AM, [address] [facility], [facility] [address], [place], [address], Insurance Providers Payer Name Payer Address Payer Phone Subscriber Number Group Number Insured Name Patient Relationship to Insured Coverage Start Date Coverage End Date [facility] [employer] SCO Claims [address] [place] [id number] [phone] [id number] Kendra Martinez Self - patient is the insured Medical (General) History Medical History History ICD Code Anxiety CAD (Cholesterol) Dementia Diabetic High Blood Pressure Stroke hemochromatosis Cirrhosis, liver
== END 2024-07-23 13:10 | disposition home or self-care (01) ==
LOC: HO.BBR 13:09
PROVIDERS: Visit Provider Physician Assistant Medical
DX: E83.111 Hemochromatosis due to repeated red blood cell transfusions (principal)
CPT/HCPCS: 85014; 85018; 99195

== ENCOUNTER 2024-08-06 13:13 | Outpatient (REF) | payer OTHER, SELFPAY ==
--- OUTSIDE RECORDS SUMMARY | 2024-08-06 13:16 | XMS_ITS | Patient Health Record ---
Author Organization [facility] Address [address] [place] [address] Care Team Providers Care Drum Barker Operator Name Role Phone Mireya Downing MD Primary Care Provider UnavailKrzysztof Schumacher Unavailable [phone] Leila Crowder Unavailable [phone] Allergies Allergen (clinical drug ingredient) Drug/Non Drug [...] Problem Acquired hammer toe of right foot (5461585061458276 ) Other hammer toe(s) (acquired), right foot (M20.41) Active confirmed Problem Acquired hammer toe of left foot (5627642187873662 ) Other hammer toe(s) (acquired), left foot (M20.42) Active confirmed Problem Polyneuropathy due to type 2 diabetes mellitus (496271794) Type 2 diabetes mellitus with diabetic polyneuropathy (E11.42) Active confirmed Vital Signs Height 4ft 11in in 06/10/2024 Weight 158 lbs 06/10/2024 BMI 31.91 kg/m2 06/10/2024 Procedures Procedure Date Ordered Date Performed Result Body Sit e 83460-THTTZQX NAIL, 1-5 06/10/2024 N/A 66650-FHBY SKIN LESIONS, 2 TO 4 06/10/2024 N/A V3749-OWKCVUHA DYSTROPHIC NAILS ANY # 06/10/2024 N/A Encounters Encounter Location Date Provider Diagnosis [facility] [address] 06/10/2024 Krzysztof Nettles Type 2 diabetes mellitus with diabetic polyneuropathy E11.42 ; Tinea unguium B35.1 ; Other hammer toe(s) (acquired), right foot M20.41 and Other hammer toe(s) (acquired), left foot M20.[address] [facility] [address] 03/16/2024 Leila Crowder Assessments Encounter Date Diagnosis [...] Treatment Pending Test Test Name Order Date 70137-QEGVTYB NAIL, 1-5 06/10/2024 68737-DHPB SKIN LESIONS, 2 TO 4 06/11/19 25 T2035-IWBCAOER DYSTROPHIC NAILS ANY # Next Appt Details Provider Name:Krzysztof Jovana Nettles , 09/16/2024 11:00:00 AM, [address] [facility], [facility] [address], [place], [address], Insurance Providers Payer Name Payer Address Payer Phone Subscriber Number Group Number Insured Name Patient Relationship to Insured Coverage Start Date Coverage End Date [facility] CCA SCO Claims [address] [place] [phone] [id number] Kendra Martinez Self - patient is the insured Medical (General) History Medical History History ICD Code Anxiety CAD (Cholesterol) Dementia Diabetic High Blood Pressure Stroke hemochromatosis Cirrhosis, liver
== END 2024-08-06 13:14 | disposition home or self-care (01) ==
LOC: HO.BBR 13:13
PROVIDERS: Visit Provider Physician Assistant Medical
DX: R79.0 Abnormal level of blood mineral (principal)
CPT/HCPCS: 85018; 99195

== ENCOUNTER 2024-08-31 11:12 | Outpatient (REF) | payer OTHER, SELFPAY ==
--- OUTSIDE RECORDS SUMMARY | 2024-08-31 12:38 | XMS_ITS | Clinical Summary ---
Author Organization [facility] [address] ity Address [address] [place] [address] Care Team Providers Care Principal Statistical Scientist Name Role Phone Unavailable Primary Care Provider [...] Influencers of Health Screening 01/20/2022 COVID-19 Vaccine (1 - 2023-2 5 season) 2023 Influenza Vaccine (#1) 2024 RSV Immunization Adult Patie nts (1 [...] Procedure Name Priority Date/Time Associated Diagnosis Comments [facility] SCREENING DIGITAL Routine 03/17/2019 10:29 AM EST Encounter for screening mammogram for malignant neoplasm of breast from Last 3 Months or Most Recently Relevant to Health Maintenance Results * [facility] SCREENING DIGITAL (03/17/2019 10:29 AM EST) Anatomical Region Laterality Modality Mammography 03/17/2019 9:18 AM EST Narrative 03/17/2019 10:29 AM EST [facility] Diagnostic Imaging Department [address] [place] [address] Patient: KENDRA FELTON./Age/Sex: 1955 - 63 - F Unit#: [id number] [facility]ing [facility] Ordering Physician: EVA HARVEY MD [facility] Screening Digital - 03/17/19 0944 INDICATION: SCREENING COMPARISON: No prior studies are available for comparison. TECHNIQUE: CC and MLO views of the breasts were obtained, using full field digital mammography with 3D tomosynthesis views in the MLO projection. Computer aided detection with the iCAD SecondLook 7.2-H was employed. FINDINGS: The breast tissue is extremely dense, lowering sensitivity of mammography in this patient. Loosely grouped calcifications within the upper outer quadrant of the left breast. Benign vascular type calcifications are present bilaterally. No suspicious masses, or areas of architectural distortion are identified within either breast. There are no secondary signs of breast malignancy. IMPRESSION: Loosely grouped calcifications within the upper outer quadrant of the left breast. Further evaluation with magnification views is recommended. No specific mammographic evidence of breast malignancy on the right. Lack of an imaging correlate should not deter or delay biopsy of a clinically significant palpable finding. BI-RADS - Category 0 - Incomplete needs additional imaging evaluation. 3340F, 7025F (G0202 / 57532) , [id number] Dictating Physician: J LUIS COTTRELL MD Electronically Signed by: J LUIS COTTRELL MD Dic Date/Time: 03/17/19 1024 Sign date/Time: 03/17/19 1029 Procedure Note J Luis Cottrell - 02/06/2022 [facility] Diagnostic Imaging Department [address] [place] [address] Patient: KENDRA FELTON /Age/Sex: 1955 - 63 - F Unit#: [id number] Location/Status: [facility] CLI Mnemonic/Ordering Site: [facility] Ordering Physician: EVA HARVEY MD [facility] Screening Digital - 03/17/19 - 0944 INDICATION: SCREENING COMPARISON: No prior studies are available for comparison. TECHNIQUE: CC and MLO views of the breasts were obtained, using full field digital mammography with 3D tomosynthesis views in the MLO projection. Computer aided detection with the UannaBe 7.2-H was employed. FINDINGS: The breast tissue [...] needs additional imaging evaluation.3340F, 7025F (G0202 / 81866) , [id number] Dictating Physician: J LUIS COTTRELL MD Electronically Signed by: J LUIS COTTRELL MD Dic Date/Time: 03/17/19 1024 Sign date/Time: 03/17/19 1029 us Eva Harvey MD IMG BI PROCEDURES Final Resul t from Last 3 Months or Most Recently Relevant to Health Maintenance
--- OUTSIDE RECORDS SUMMARY | 2024-08-31 12:38 | XMS_ITS | Patient Health Record ---
Author Organization [facility] Address [address] [place] [address] Care Team Providers Care In Flight Refueling Operator Name Role Phone Mireya Downing MD Primary Care Provider UnavailKrzysztof Schumacher Unavailable [phone] Leila Crowder Unavailable [phone] Allergies Allergen (clinical drug ingredient) Drug/Non Drug [...] Problem Acquired hammer toe of right foot (9607418364578674 ) Other hammer toe(s) (acquired), right foot (M20.41) Active confirmed Problem Acquired hammer toe of left foot (1975677858545570 ) Other hammer toe(s) (acquired), left foot (M20.42) Active confirmed Problem Polyneuropathy due to type 2 diabetes mellitus (551929447) Type 2 diabetes mellitus with diabetic polyneuropathy (E11.42) Active confirmed Vital Signs Height 4ft 11in in 06/10/2024 Weight 158 lbs 06/10/2024 BMI 31.91 kg/m2 06/10/2024 Procedures Procedure Date Ordered Date Performed Result Body Sit e Q5407-HSDOXPXT DYSTROPHIC NAILS ANY # 06/10/2024 N/A 32088-JKJE SKIN LESIONS, 2 TO 4 06/10/2024 N/A 88698-MIRTZXH NAIL, 1-5 06/10/2024 N/A Encounters Encounter Location Date Provider Diagnosis [facility] [address] 06/10/2024 Krzysztof Nettles Type 2 diabetes mellitus with diabetic polyneuropathy E11.42 ; Tinea unguium B35.1 ; Other hammer toe(s) (acquired), right foot M20.41 and Other hammer toe(s) (acquired), left foot M20.[address] [facility] [address] 03/16/2024 Leila Crowder Assessments Encounter Date Diagnosis [...] Treatment Pending Test Test Name Order Date 88913-YLRSEAY NAIL, 1-5 06/10/2024 84691-OIBC SKIN LESIONS, 2 TO 4 06/11/19 25 J0269-OPLTAIOM DYSTROPHIC NAILS ANY # Next Appt Details Provider Name:Krzysztof Jovana Nettles , 09/16/2024 11:00:00 AM, [address] [facility], [facility] [address], [place], [address], Insurance Providers Payer Name Payer Address Payer Phone Subscriber Number Group Number Insured Name Patient Relationship to Insured Coverage Start Date Coverage End Date [facility] [employer] Claims [address] [place] [phone] [id number] Kendra Martinez Self - patient is the insured Medical (General) History Medical History History ICD Code Anxiety CAD (Cholesterol) Dementia Diabetic High Blood Pressure Stroke hemochromatosis Cirrhosis, liver
== END 2024-08-31 11:13 | disposition home or self-care (01) ==
LOC: HO.BBR 11:12
PROVIDERS: Visit Provider Physician Assistant Medical
DX: E83.19 Other disorders of iron metabolism (principal)
CPT/HCPCS: 85018; 99195

== ENCOUNTER 2024-09-14 10:57 | Outpatient (REF) | payer OTHER, SELFPAY ==
--- OUTSIDE RECORDS SUMMARY | 2024-09-14 12:14 | XMS_ITS | Clinical Summary ---
Author Organization [facility] ity Address [address] [place] [address] Care Team Providers Care Outbound Sales Agent Name Role Phone Unavailable Primary Care Provider [...] 03/17/2021 03/17/2019 Colorectal Cancer Screening: Colonoscopy 01/20/2022 Falls Risk Assessment 01/20/2022 Hepatitis C Screening 01/20/2022 Osteoporosis Screening (Bone Density Screening) 01/20/2022 Social Influencers of Health Screening 01/20/2022 COVID-19 Vaccine (1 - 2023-2 5 season) 2023 Depression Screening 02/18/2024 Influenza Vaccine (#1) 2024 RSV Immunization Adult [...] Procedure Name Priority Date/Time Associated Diagnosis Comments [facility] SCREENING DIGITAL Routine 03/17/2019 10:29 AM EST Encounter for screening mammogram for malignant neoplasm of breast from Last 3 Months or Most Recently Relevant to Health Maintenance Results * [facility] SCREENING DIGITAL (03/17/2019 10:29 AM EST) Anatomical Region Laterality Modality Mammography 03/17/2019 9:18 AM EST Narrative 03/17/2019 10:29 AM EST [facility] Diagnostic Imaging Department [address] [place] [address] Patient: KENDRA FELTON./Age/Sex: 1955 - 63 - F Unit#: [id number] [facility] Ordering Physician: EVA HARVEY MD [facility] Screening Digital - 03/17/19 0944 INDICATION: SCREENING [...] additional imaging evaluation. 3340F, 7025F (G0202 / 15889) , [id number] Dictating Physician: J LUIS COTTRELL MD Electronically Signed by: J LUIS COTTRELL MD Dic Date/Time: 03/17/19 1024 Sign date/Time: 03/17/19 1029 Procedure Note J Luis Cottrell - 02/06/2022 [facility] Diagnostic Imaging Department [address] [place] [address] Patient: KENDRA FELTON /Age/Sex: 1955 - 63 - F Unit#: [id number] Location/Status: [facility] CLI Mnemonic/Ordering Site: [facility] Ordering Physician: EVA HARVEY MD [facility] Screening Digital - 03/17/19 - 0944 INDICATION: SCREENING COMPARISON: No prior studies are available for comparison. TECHNIQUE: CC and MLO views of the breasts were obtained, using full field digital mammography with 3D tomosynthesis views in the MLO projection. Computer aided detection with the Swirl 7.2-H was employed. FINDINGS: The breast tissue [...] needs additional imaging evaluation.3340F, 7025F (G0202 / 35250) , [id number] Dictating Physician: J LUIS COTTRELL MD Electronically Signed by: J LUIS COTTRELL MD Dic Date/Time: 03/17/19 1024 Sign date/Time: 03/17/19 1029 us Eva Harvey MD IMG BI PROCEDURES Final Resul t from Last 3 Months or Most Recently Relevant to Health Maintenance
--- OUTSIDE RECORDS SUMMARY | 2024-09-14 12:14 | XMS_ITS | Patient Health Record ---
[facility] Address [address] [place] [address] Care Team Providers Care Limnologist Name Role Phone Mireya Downing MD Primary Care Provider UnavailKrzysztof Schumacher Unavailable [phone] Leila Crowder Unavailable [phone] Allergies Allergen (clinical drug ingredient) Drug/Non Drug [...] Problem Acquired hammer toe of right foot (496459790465 9105) Other hammer toe(s) (acquired), right foot (M20.41) Active confirmed Problem Acquired hammer toe of left foot (686598419188 9103) Other hammer toe(s) (acquired), left foot (M20.42) Active confirmed Problem Type 2 diabetes mellitus with diabetic polyneuropathy (E11.42) Active confirmed Vital Signs Height 4ft 11in in 06/10/2024 Weight 158 lbs 06/10/2024 BMI 31.91 kg/m2 06/10/2024 Procedures Procedure Date Ordered Date Performed Result Body Sit e 55974-GVSHJTS NAIL, 1-5 06/10/2024 N/A 77421-MWJV SKIN LESIONS, 2 TO 4 06/10/2024 N/A O0230-EORGQLCD DYSTROPHIC NAILS ANY # 06/10/2024 N/A Encounters Encounter Location Date Provider Diagnosis [facility] [address] 06/10/2024 Krzysztof Iyerunier Type 2 diabetes mellitus with diabetic polyneuropathy E11.42 ; Tinea unguium B35.1 ; Other hammer toe(s) (acquired), right foot M20.41 and Other hammer toe(s) (acquired), left foot M20.[address] [facility] [address] 03/16/2024 Leila Crowder Assessments Encounter Date Diagnosis [...] Treatment Pending Test Test Name Order Date 88245-XBFMCLM NAIL, 1-5 06/10/2024 04757-UADN SKIN LESIONS, 2 TO 4 06/11/19 25 K2792-ORASFFTY DYSTROPHIC NAILS ANY # Next Appt Details Provider Name:Krzysztof Nettles , 09/16/2024 11:00:00 AM, [address] [facility], [facility] [address], [place], [address], Insurance Providers Payer Name Payer Address Payer Phone Subscriber Number Group Number Insured Name Patient Relationship to Insured Coverage Start Date Coverage End Date [facility] [employer] S[employer] Claims [address] [place] [id number] Kendra Martinez Self - patient is the insured Medical (General) History Medical History History ICD Code Anxiety CAD (Cholesterol) Dementia Diabetic High Blood Pressure Stroke hemochromatosis Cirrhosis, liver
--- OUTSIDE RECORDS SUMMARY | 2024-09-14 12:14 | XMS_ITS | Clinical Summary ---
Author Organization [facility] Address [address] [place] [address] Phone Care Team Providers Care Urogynaecologist Name Role Phone Summer Zelaya MD Primary Care P rovider Allergies No known active allergies Medications thiamine (VITAMIN B-1) 100 MG tablet Take 100 mg by mouth daily. Active ferrous sulfate 325 mg (65 mg yocha dehe iron) tablet Take 325 mg by mouth daily with breakfast. Active amLODIPine (NORVASC) 5 MG tablet Take 5 mg by mouth daily. Active hydroCHLOROthia zide (HYDRODIURIL) 25 MG tablet Take 25 mg by mouth daily. Active ARIPiprazole (ABILIFY) 5 MG tablet Take 5 mg by mouth nightly at bedtime. Active magnesium hydroxide (MOM CONCENTRATED) 2,400 mg/10 mL Susp 30 mL. Active aluminum hydroxide magnesium carbonate (GAVISCON EXTRA STRENGTH) 160-105 mg Chew Take 2 tablets by mouth 4 (four) times a day after meals. Active acetaminophen 325 mg Cap Take 325 mg by mouth. Active diphenhydrAMINE (BENADRYL) 50 MG capsule Take 50 mg by mouth nightly at bedtime. Active traZODone (DESYREL) 50 MG tablet Take 50 mg by mouth nightly at bedtime. Active benztropine (COGENTIN) 0.5 MG tablet Take 0.5 mg by mouth as needed. Active Active Problems Problem Noted Date Diagnosed Date AMS (altered mental status) 01/14/2019 Immunizations Immunization Administration Dates Next Due Influenza Quadrivalent Prese rvative Free IM 01/16/2019(Deferred: Patient Refused) Social History Tobacco Use Types Packs/Day Years Used Date Smoking Tobacco: Never Smokeless Tobacco: Never Alcohol Use Standard Drinks/Week Comments Never 0 (1 standard drink = 0.6 oz pur e alcohol) Education Answer Date Recorded Are you interested in more education? Not on aggie e 06/14/2022 Are you concerned about learning? Not on file 06/14/2022 No 06/14/2022 No 06/14/2022 Digital Access Answer Date Recorded No 07/13/2022 No 07/13/2022 No 07/13/2022 Reliable internet access at home? Not on file 07/13/2022 Device with a working camera? Not on file Comments No Sex and Gender Information Value Date Recorded Sex Assigned at Not on file Legal Sex Female 12:27 AM EST Gender Identity Not on file Sexual Orientation Not on file Last Filed Vital Signs Vital Sign Reading Time Taken Comments Blood Pressure 120/76 01/16/2019 8:28 PM EST Pulse 100 01/16/2019 8:28 PM EST Temperature 36.7 C (98.1 F) 01/16/2019 8:28 PM EST Respiratory Rate 18 01/16/2019 8:28 PM EST Oxygen Saturation 100% 01/16/2019 8:28 PM EST Inhaled Oxygen Concentration - - Weight 52.3 kg (115 lb 4.8 oz) 01/15/2019 6:05 A M EST Height 149.9 cm (4' 11 ) 01/14/2019 12:49 AM EST Body Mass Index 23.29 01/14/2019 12:49 AM EST Plan of Treatment Health Maintenance Due Date Last Done Comments Adult Td,Tdap Booster 1955 DEPRESSION SCREENING 1966 HEPATITIS C SCREENING 1972 SMOKING STATUS SCREENING (Once After 26 Yrs) 1980 MAMMOGRAM 1994 COLOGUARD 06/04/1999 COLONOSCOPY 06/04/1999 COLORECTAL CANCER SCREENING 06/04/1999 FIT TEST 06/04/1999 FOBT 06/04/1999 SIGMOIDOSCOPY 06/04/1999 VIRTUAL COLONOSCOPY 06/04/1999 PNEUMOCOCCAL VACCINES (50+ years) (1 of 1 - PCV) 2004 ZOSTER VACCINES (1 of 2) 2004 OSTEOPOROSIS SCREENING INITIAL (ONE-TIME) 06/04/2019 POTASSIUM LEVEL 01/17/2020 01/16/2019, 12/19, 01/14/2019, Additional history exists COVID-19 VACCINE ( season) 2023 03/30/2020, 03/09/2020 LIPID PANEL 01/15/2024 01/14/2019 RSV VACCINE (1 - 1-dose 75+ series) 2029 HEPATITIS A VACCINES Aged Out No long er eligible based on patient's age to complete this topic HIB VACCINES Aged Out No longer eligi ble based on patient's age to complete this topic MENINGOCOCCAL VACCINES (ACWY) Aged Out No longer eligible based on patient's age to complete this topic MENINGOCOCCAL VACCINES (B) Aged Out N o longer eligible based on patient's age to complete this topic Medical Devices Not on file Procedures Procedure Name Priority Date/Time Associated Diagnosis Comments BASIC METABOLIC PANEL Routine 01/16/2019 9:09 AM EST LIPID PANEL Routine 01/14/2019 10:26 AM EST from Last 3 Months or Most Recently Relevant to Health Maintenance Results * (ABNORMAL) Basic metabolic panel (01/16/2019 9:09 AM EST) SODIUM 134(L) 136 - 145 mmol/L [facility] CHLORIDE 90(L) 98 - 107 mmol/L [facility] POTASSIUM 3.8 3.4 - 5.0 mmol/L [facility] CO2 33(H) 22 - 31 mmol/L [facility] BUN 19 6 - 23 mg/dL [facility] CREATININE 0.67 0.50 - 1.20 mg/dL [facility] GLUCOSE 104 70 - 115 mg/dL [facility] Comment:Note: ADA guidelines consider any fasting glucose above 100 mg/dL as pre-diabetic. CALCIUM 10.1 8.6 - 10.7 mg/dL [facility] EGFR 93 >60 mL/min/1.7 3m2 [facility] Comment:If patient is black, multiply result by 1.159. Estimated glomerular filtration rate calculated using the CKD-EPI equation. ANION GAP 11 3 - 15 mmol/L [facility] Blood 01/16/2019 9:09 AM EST 01/16/2019 9:38 AM EST Jarrod Smith MD,MPH,MSc LAB BLOOD OR DERABLES Final Result Performing Organization Address City/[facility] Co de Phone Number [address] [address] * Lipid panel (01/14/2019 10:26 AM EST) Pathologist [facility] HDL 50 40 - 60 mg/dL [facility] CHOLESTEROL 128 0 - 199 mg/dL [facility] Comment:DESIRABLE: <200 TRIGLYCERIDES 101 40 - 150 mg/dL [facility] LDL 58 0 - 129 mg/dL [facility] Comment: < 100 Optimal, if known or suspected vascular disease is present < 130 Near optimal, if risk factors for vascular disease are present Guidelines set by National Cholesterol Education Program (Adult Treatment Panel III) CARDIAC RISK RATIO 2.6 0.0 - 4.0 B [facility] Blood 01/14/2019 10:2 6 AM EST 01/14/2019 10:38 AM EST Jarrod Smith MD,MPH,MSc LAB BLOOD OR DERABLES Final Result Performing Organization Address City/[facility]/[place] [address] from Last 3 Months or Most Recently Relevant to Health Maintenance Insurance TOGETHER [employer] TOGETHER [employer] Advance Directives For more information, please contact: [phone] (9AM - 5PM [facility], Friday-Friday) * Full Code (Presumed) (Latest Code Status on File) Date Activated Date Inactivated Comments 01/14/2019 8:22 AM 01/17/2019 1:35 AM Care Teams Urogynaecologist Relationship Specialty Start Date End Date Summer Zelaya MD [address] [place] [id number] PCP - General 01/14/19 Additional Source Comments The information contained in this document represents components of the legal health record. It is not the complete legal health record.[facility]
== END 2024-09-14 10:58 | disposition home or self-care (01) ==
LOC: HO.BBR 10:57
PROVIDERS: Visit Provider Physician Assistant Medical
DX: E83.119 Hemochromatosis, unspecified (principal)
CPT/HCPCS: 85018; 99195

== ENCOUNTER 2024-09-29 11:19 | Outpatient (REF) | payer OTHER, SELFPAY ==
--- OUTSIDE RECORDS SUMMARY | 2024-09-29 12:17 | XMS_ITS | Patient Health Record ---
[facility] Organization [facility] Address [address] [place] [address] Care Team Providers Care University Teacher Name Role Phone Mireya Downing MD Primary Care Provider UnavailKrzysztof Schumacher Unavailable [phone] Leila Crowder Unavailable [phone] Allergies Allergen (clinical drug ingredient) Drug/Non Drug Allergy documented on EMR Reaction Allergy Type Onset Date Status lisinopril Lisinopril Unknown Drug Allergy Activ e Results Component Value Reference Range Notes HEMOGLOBIN A1C (GLYCOHEMOGLO BIN) Reviewed date:06/10/2024 11:02:03 AM Interpretation: Performing Lab: Notes/Report: HEMOGLOBIN A1C % (HH) 4.9 HEMOGLOBIN A1C (GLYCOHEMOGLO BIN) Reviewed date:09/16/2024 11:26:03 AM Interpretation: Performing Lab: Notes/Report: HEMOGLOBIN A1C % (HH) 10.2 Reason For Referral No Information Medications Medication SIG (Take, Route, Frequency, Duration) Notes Start Date End Date Status Atorvastatin Calcium 40 MG 1 tablet Orally Once a day Active Losartan Potassium 25 MG 1 tablet Orally Once a day Active Extra Depth Orthopedic Shoes (1 Pair) with Customized Heat Molded Multidensity Innersoles (3 Pair) as directed Dx: NIDDM/Polyneuropathy (E11.42), Hammertoe Foot Deformity (M20.41,M20.42), Preulcerative Skin Lesion(s) (L85.1 Active ARIPiprazole 15 MG 1 tablet Orally Once a day Active Eliquis 5 MG as directed Orally Active Lantus 100 UNIT/ML as directed Subcutan eous daily 14 units Active HumaLOG Active Melatonin 5 MG 1 tablet Orally as needed Active Immunizations Vaccine Route Administration Date Status Comme nts Influenza Unknown 10/21/2023 Administered Social History Tobacco Use: Social History Observation [...] Problem Acquired hammer toe of right foot (2974265324376311 ) Other hammer toe(s) (acquired), right foot (M20.41) Active confirmed Problem Acquired hammer toe of left foot (8576362910399210 ) Other hammer toe(s) (acquired), left foot (M20.42) Active confirmed Problem Polyneuropathy due to type 2 diabetes mellitus (585788484) Type 2 diabetes mellitus with diabetic polyneuropathy (E11.42) Active confirmed Vital Signs Height 4ft 11in in 09/16/2024 Weight 142 lbs 09/16/2024 BMI 28.68 kg/m2 09/16/2024 Procedures Procedure Date Ordered Date Performed Result Body Sit e 91668-QFNRAOY NAIL, 1-5 06/10/2024 N/A 01426-FYFB SKIN LESIONS, 2 TO 4 06/10/2024 N/A M0656-HXDDCUPX DYSTROPHIC NAILS ANY # 06/10/2024 N/A 35560-WFNWEJR NAIL, 1-5 09/16/2024 N/A 14764-FGAJ SKIN LESIONS, 2 TO 4 09/16/2024 N/A F8805-ZICLMPST DYSTROPHIC NAILS ANY # 09/16/2024 N/A Encounters Encounter Location Date Provider Diagnosis [facility] [address] [address] 06/10/2024 Krzysztof Nettles Type 2 diabetes mellitus with diabetic polyneuropathy E11.42 ; Tinea unguium B35.1 ; Other hammer toe(s) (acquired), right foot M20.41 and Other hammer toe(s) (acquired), left foot M20.42 [facility] [address] [address] 09/16/2024 Krzysztof Nettles Type 2 diabetes mellitus with diabetic polyneuropathy E11.42 ; Tinea unguium B35.1 ; Other hammer toe(s) (acquired), right foot M20.41 and Other hammer toe(s) (acquired), left foot M20.[address] [address] 03/16/2024 Leila Crowder Assessments Encounter Date Diagnosis (ICD Code) Assessment Notes Treatment Notes Treatment Clinical Notes Section Notes 06/10/2024 Tinea unguium (ICD-10 - B35.1) 06/10/2024 Type 2 diabetes mellitus with diabetic polyneuropathy (ICD-10 - E11.42) 09/16/2024 Tinea unguium (ICD-10 - B35.1) 09/16/2024 Type 2 diabetes mellitus with diabetic polyneuropathy (ICD-10 - E11.42) 06/10/2024 Other hammer toe(s) (acquired), right foot (ICD-10 - M20.41) Patient Educated with: DIABETIC FOOT CARE INSTRUCTIONS. pdf (DIABETIC FOOT CARE INSTRUCTIONS. pdf) 09/16/2024 Other hammer toe(s) (acquired), right foot (ICD-10 - M20.41) Patient Educated with: DIABETIC FOOT CARE INSTRUCTIONS. pdf (DIABETIC FOOT CARE INSTRUCTIONS. pdf) 09/16/2024 Other hammer toe(s) (acquired), left foot (ICD-10 - M20.42) 06/10/2024 Other hammer toe(s) (acquired), left foot (ICD-10 - M20.42) Plan Of Treatment Pending Test Test Name Order Date 87673-NBRZFQX NAIL, 1-06/10/2024 21612-PLNEUFE NAIL, 1-09/16/2024 29704-KFVS SKIN LESIONS, 2 TO 4 09/17/19 99357-HAVF SKIN LESIONS, 2 TO 4 06/11/19 M2905-TEINZTZM DYSTROPHIC NAILS ANY # G7415-WRTRAQKL DYSTROPHIC NAILS ANY # Next Appt Details Provider Name:Krzysztof Nettles , 12/30/2024 04:00:00 PM, [address] , [address], [place], [address], Insurance Providers Payer Name Payer Address Payer Phone Subscriber Number Group Number Insured Name Patient Relationship to Insured Coverage Start Date Coverage End Date [facility] CCA SCO Claims [address] [place] [id number] [phone] [id number] Kendra Martinez Self - patient is the insured Medical (General) History Medical History History ICD Code Anxiety CAD (Cholesterol) Dementia Diabetic High Blood Pressure Stroke hemochromatosis Cirrhosis, liver Surgical History Surgery Date(Month/Year) total hysterectomy 08/24/24
--- OUTSIDE RECORDS SUMMARY | 2024-09-29 12:18 | XMS_ITS | Clinical Summary ---
Author Organization [facility] Address [address] [place] [address] Phone Care Team Providers Care Advertising Solicitor Name Role Phone Summer Zelaya MD Primary Care P rovider Allergies No known active allergies Medications thiamine (VITAMIN B-1) 100 MG tablet Take 100 mg by mouth daily. Active ferrous sulfate 325 mg (65 mg [place] iron) tablet Take 325 mg by mouth [...] you interested in more education? Not on agige e 06/14/2022 Are you concerned about learning? [...] EST) SODIUM 134(L) 136 - 145 mmol/L [facility] CHLORIDE 90(L) 98 - 107 mmol/L [facility] POTASSIUM 3.8 3.4 - 5.0 mmol/L [facility] CO2 33(H) 22 - 31 mmol/L [facility] BUN 19 6 - 23 mg/dL [facility] CREATININE 0.67 0.50 - 1.20 mg/dL [facility] GLUCOSE 104 70 - 115 mg/dL [facility] Comment:Note: ADA guidelines consider any fasting glucose above 100 mg/dL as pre-diabetic. CALCIUM 10.1 8.6 - 10.7 mg/dL [facility] EGFR 93 >60 mL/min/1.7 3m2 [facility] Comment:If patient is black, multiply result by 1.159. Estimated glomerular filtration rate calculated using the CKD-EPI equation. ANION GAP 11 3 - 15 mmol/L [facility] Blood 01/16/2019 9:09 AM EST 01/16/2019 9:38 AM EST Jarrod Smith MD,MPH,MSc LAB BLOOD OR DERABLES Final Result Performing Organization Address City/[facility] Co de Phone Number [address] [address] * Lipid panel (01/14/2019 10:26 AM EST) Pathologist [facility] HDL 50 40 - 60 mg/dL [facility] CHOLESTEROL 128 0 - 199 mg/dL [facility] Comment:DESIRABLE: <200 TRIGLYCERIDES 101 40 - 150 mg/dL [facility] LDL 58 0 - 129 mg/dL [facility] Comment: < 100 Optimal, if known or suspected vascular disease is present < 130 Near optimal, if risk factors for vascular disease are present Guidelines set by National Cholesterol Education Program (Adult Treatment Panel III) CARDIAC RISK RATIO 2.6 0.0 - 4.0 B [facility] Blood 01/14/2019 10:2 6 AM EST 01/14/2019 10:38 AM EST Jarrod Smith MD,MPH,MSc LAB BLOOD OR DERABLES Final Result Performing Organization Address City/[facility]/[place] [address] from Last 3 Months or Most Recently Relevant to Health Maintenance Insurance TOGETHER MCO TOGETHER M[employer] Advance Directives For more information, please contact: [phone] (9AM - 5PM [facility], Friday-Friday) * Full Code (Presumed) (Latest Code Status on File) Date Activated Date Inactivated Comments 01/14/2019 8:22 AM 01/17/2019 1:35 AM Care Teams Advertising Solicitor Relationship Specialty Start Date End Date Summer Zelaya MD [address] [place] [id number] PCP - General 01/14/19 Additional Source Comments The information contained in this document represents components of the legal health record. It is not the complete legal health record.[facility]
--- OUTSIDE RECORDS SUMMARY | 2024-09-29 12:18 | XMS_ITS | Clinical Summary ---
Author Organization [facility] ity Address [address] [place] [address] Care Team Providers Care It Help Desk Manager Name Role Phone Unavailable Primary Care Provider [...] Procedure Name Priority Date/Time Associated Diagnosis Comments [facility] SCREENING DIGITAL Routine 03/17/2019 10:29 AM EST Encounter for screening mammogram for malignant neoplasm of breast from Last 3 Months or Most Recently Relevant to Health Maintenance Results * [facility] SCREENING DIGITAL (03/17/2019 10:29 AM EST) Anatomical Region Laterality Modality Mammography 03/17/2019 9:18 AM EST Narrative 03/17/2019 10:29 AM EST [facility] Diagnostic Imaging Department [address] [place] [address] Patient: KENDRA FELTON./Age/Sex: 1955 - 63 - F Unit#: [id number] [facility]ing [facility] Ordering Physician: EVA HARVEY MD [facility] Screening Digital - 03/17/19 0944 [...] additional imaging evaluation. 3340F, 7025F (G0202 / 14326) , [id number] Dictating Physician: J LUIS COTTRELL MD Electronically Signed by: J LUIS COTTRELL MD Dic Date/Time: 03/17/19 1024 Sign date/Time: 03/17/19 1029 Procedure Note J Luis Cottrell - 02/06/2022 [facility] Diagnostic Imaging Department [address] [place] [address] Patient: KENDRA FELTON /Age/Sex: 1955 - 63 - F Unit#: [id number] Location/Status: [facility] CLI Mnemonic/Ordering Site: [facility] Ordering Physician: EVA HARVEY MD [facility] Screening Digital - 03/17/19 - 0944 INDICATION: SCREENING COMPARISON: No prior studies are available for comparison. TECHNIQUE: CC and MLO views of the breasts were obtained, using full field digital mammography with 3D tomosynthesis views in the MLO projection. Computer aided detection with the [employer] 7.2-H was employed. FINDINGS: The breast tissue [...] needs additional imaging evaluation.3340F, 7025F (G0202 / 54999) , [id number] Dictating Physician: J LUIS COTTRELL MD Electronically Signed by: J LUIS COTTRELL MD Dic Date/Time: 03/17/19 1024 Sign date/Time: 03/17/19 1029 us Eva Harvey MD IMG BI PROCEDURES Final Resul t from Last 3 Months or Most Recently Relevant to Health Maintenance
== END 2024-09-29 11:20 | disposition home or self-care (01) ==
LOC: HO.BBR 11:19
PROVIDERS: Visit Provider Physician Assistant Medical
DX: E83.19 Other disorders of iron metabolism (principal)
CPT/HCPCS: 85018; 99195

== ENCOUNTER 2024-10-13 12:07 | Outpatient (REF) | payer OTHER, SELFPAY ==
--- OUTSIDE RECORDS SUMMARY | 2024-03-19 08:00 | XMS_ITS ---
Author Organization [facility] Address [address] [place] [address] Care Team Providers Care Pbx Mechanic Name Role Phone Chang LEE, Mireya Primary Care Provider UnavailKrzysztof Schumacher Unavailable [phone] Leila Crowder Unavailable [phone] Encounters Encounter Location Date [facility] [address] 03/19/2024 Leila Crowder Plan Of Treatment Next Appt Details Provider Name:Krzysztof Nettles , 12/30/2024 04:00:00 PM, [address] [place] [address], [address], Progress Notes * Kendra MARTINEZ ADOB: [birth year] (69 yo F)Acc No.[id number]:03/19/2024 Progress Notes Patient: Kendra CAMP Provider: Gris Crowder DPM :1955 A ge:68 Y S ex:Female Date:03/19/2024 Address:[address] [place] [address] Pcp:Mireya Downing MD Subjective: * Chief Complaints: [...] 0 03/19/2024 Generated for Jesus Culver/Guillermo on: 0 10/13/2024 12:50 PM EDT
--- OUTSIDE RECORDS SUMMARY | 2024-10-13 12:51 | XMS_ITS | Clinical Summary ---
Author Organization [facility] ity Address [address] [place] [address] Care Team Providers Care Asphalt Plant Operator Name Role Phone Unavailable Primary Care Provider [...] Procedure Name Priority Date/Time Associated Diagnosis Comments [facility] SCREENING DIGITAL Routine 03/17/2019 10:29 AM EST Encounter for screening mammogram for malignant neoplasm of breast from Last 3 Months or Most Recently Relevant to Health Maintenance Results * [facility] SCREENING DIGITAL (03/17/2019 10:29 AM EST) Anatomical Region Laterality Modality Mammography 03/17/2019 9:18 AM EST Narrative 03/17/2019 10:29 AM EST [facility] Diagnostic Imaging Department [address] [place] [place] [address] Patient: KENDRA FELTON./Age/Sex: 1955 - 63 - F Unit#: [id number] [facility] Ordering Physician: EVA HARVEY MD [facility] Screening Digital - 03/17/19 0944 INDICATION: SCREENING [...] additional imaging evaluation. 3340F, 7025F (G0202 / 00314) , [id number] Dictating Physician: J LUIS COTTRELL MD Electronically Signed by: J LUIS COTTRELL MD Dic Date/Time: 03/17/19 1024 Sign date/Time: 03/17/19 1029 Procedure Note J Luis Cottrell - 02/06/2022 [facility] Diagnostic Imaging Department [address] [place] [address] Patient: KENDRA FELTON /Age/Sex: 1955 - 63 - F Unit#: [id number] Location/Status: [facility] CLI Mnemonic/Ordering Site: [facility] Ordering Physician: EVA HARVEY MD [facility] Screening Digital - 03/17/19 - 0944 INDICATION: SCREENING COMPARISON: No prior studies are available for comparison. TECHNIQUE: CC and MLO views of the breasts were obtained, using full field digital mammography with 3D tomosynthesis views in the MLO projection. Computer aided detection with the [employer] 7.2-H was employed. FINDINGS: The breast tissue [...] needs additional imaging evaluation.3340F, 7025F (G0202 / 97556) , [id number] Dictating Physician: J LUIS COTTRELL MD Electronically Signed by: J LUIS COTTRELL MD Dic Date/Time: 03/17/19 1024 Sign date/Time: 03/17/19 1029 us Eva Harvey MD IMG BI PROCEDURES Final Resul t from Last 3 Months or Most Recently Relevant to Health Maintenance
--- OUTSIDE RECORDS SUMMARY | 2024-10-13 12:51 | XMS_ITS | Patient Health Record ---
Author [facility] Address [address] [place] [address] Care Team Providers Care Urologist Name Role Phone Mireya Downing MD Primary Care Provider UnavailKrzysztof Schumacher Unavailable [phone] Leila Crowder Unavailable [phone] Allergies Allergen (clinical drug ingredient) Drug/Non Drug [...] Problem Acquired hammer toe of right foot (2318564633131444 ) Other hammer toe(s) (acquired), right foot (M20.41) Active confirmed Problem Acquired hammer toe of left foot (7354697898153249 ) Other hammer toe(s) (acquired), left foot (M20.42) Active confirmed Problem Polyneuropathy due to type 2 diabetes mellitus (030739674) Type 2 diabetes mellitus with diabetic polyneuropathy (E11.42) Active confirmed Vital Signs Height 4ft 11in in 09/16/2024 Weight 142 lbs 09/16/2024 BMI 28.68 kg/m2 09/16/2024 Procedures Procedure Date Ordered Date Performed Result Body Sit e 45460-PIQDRLY NAIL, 1-5 06/10/2024 N/A 09044-ZQPO SKIN LESIONS, 2 TO 4 06/10/2024 N/A M3143-LJABICYF DYSTROPHIC NAILS ANY # 06/10/2024 N/A 98913-RHXZXAQ NAIL, 1-5 09/16/2024 N/A 38115-PZVH SKIN LESIONS, 2 TO 4 09/16/2024 N/A K1202-VGMDBXTJ DYSTROPHIC NAILS ANY # 09/16/2024 N/A Encounters Encounter Location Date Provider Diagnosis [facility] [address] [address] 06/10/2024 Krzysztof Nettles Type 2 diabetes mellitus with diabetic polyneuropathy E11.42 ; Tinea unguium B35.1 ; Other hammer toe(s) (acquired), right foot M20.41 and Other hammer toe(s) (acquired), left foot M20.42 [facility] [address] [address] 09/16/2024 Krzysztof Nettles Type 2 diabetes mellitus with diabetic polyneuropathy E11.42 ; Tinea unguium B35.1 ; Other hammer toe(s) (acquired), right foot M20.41 and Other hammer toe(s) (acquired), left foot M20.[address] [address] 03/16/2024 Leila Crowder Assessments Encounter Date Diagnosis [...] Treatment Pending Test Test Name Order Date 91386-ARRNTBL NAIL, 1-06/10/2024 08630-SJIDTIE NAIL, 1-09/16/2024 18190-VDVC SKIN LESIONS, 2 TO 4 09/17/19 67512-NHWI SKIN LESIONS, 2 TO 4 06/11/19 V9735-PXBNXFPC DYSTROPHIC NAILS ANY # Z1222-YDMNDRJB DYSTROPHIC NAILS ANY # Next Appt Details Provider Name:Krzysztof Nettles , 12/30/2024 04:00:00 PM, [address] , [address], [place], [address], Insurance Providers Payer Name Payer Address Payer Phone Subscriber Number Group Number Insured Name Patient Relationship to Insured Coverage Start Date Coverage End Date [facility] [employer] SCO Claims [address] [place] [id number] [phone] [id number] Kendra Martinez Self - patient is the insured Medical (General) History Medical History History ICD Code Anxiety CAD (Cholesterol) Dementia Diabetic High Blood Pressure Stroke hemochromatosis Cirrhosis, liver Surgical History Surgery Date(Month/Year) total hysterectomy 08/24/24
== END 2024-10-13 12:08 | disposition home or self-care (01) ==
LOC: HO.BBR 12:07
PROVIDERS: Visit Provider Physician Assistant Medical
DX: E83.111 Hemochromatosis due to repeated red blood cell transfusions (principal)
CPT/HCPCS: 85018; 99195

== ENCOUNTER 2024-10-27 13:02 | Outpatient (REF) | payer OTHER, SELFPAY ==
--- OUTSIDE RECORDS SUMMARY | 2024-03-19 08:00 | XMS_ITS ---
Author Organization [facility] Address [address] [place] [address] Care Team Providers Care Publishing Specialist Name Role Phone Chang LEE, Mireya Primary Care Provider UnavailKrzysztof Schumacher Unavailable [phone] Leila Crowder Unavailable [phone] Encounters Encounter Location Date [facility] [address] 03/19/2024 Leila Crowder Plan Of Treatment Next Appt Details Provider Name:Krzysztof Nettles , 12/30/2024 04:00:00 PM, [address] [place] [address], [address], Progress Notes * Kendra MARTINEZ ADOB: [birth year] (69 yo F)Acc No.[id number]:03/19/2024 Progress Notes Patient: Kendra CAMP Provider: Gris Crowder DPM :1955 A ge:68 Y S ex:Female Date:03/19/2024 Address:[address] [place] [address] Pcp:Mireya Downing MD Subjective: * Chief Complaints: [...] 03/19/2024 Generated for Jesus Culp on: 0 10/27/2024 04:02 PM EDT
--- OUTSIDE RECORDS SUMMARY | 2024-10-27 16:02 | XMS_ITS | Clinical Summary ---
Author Organization [facility] ity Address [address] [place] [address] Care Team Providers Care Packer Name Role Phone Unavailable Primary Care Provider [...] 01/20/2022 Social Influencers of Health Screening 01/20/2022 Depression Screening 02/18/2024 COVID-19 Vaccine (1 - 2023-2 5 season) 2024 Influenza Vaccine (#1) 2024 RSV Immunization Adult [...] Name Priority Date/Time Associated Diagnosis Comments [facility] SCREENING DIGITAL Routine 03/17/2019 10:29 AM EST Encounter for screening mammogram for malignant neoplasm of breast from Last 3 Months or Most Recently Relevant to Health Maintenance Results * [facility] SCREENING DIGITAL (03/17/2019 10:29 AM EST) Anatomical Region Laterality Modality Mammography 03/17/2019 9:18 AM EST Narrative 03/17/2019 10:29 AM EST [facility] Diagnostic Imaging Department [address] [place] [address] Patient: KENDRA MARTINEZ./Age/Sex: 1955 - 63 - F Unit#: [id number] [facility]Ordering Site: [facility] Ordering Physician: EVA HARVEY MD [facility] Screening Digital - 03/17/19 0944 INDICATION: [...] additional imaging evaluation. 3340F, 7025F (G0202 / 71246) , [id number] Dictating Physician: J LUIS COTTRELL MD Electronically Signed by: J LUIS COTTRELL MD Dic Date/Time: 03/17/19 1024 Sign date/Time: 03/17/19 1029 Procedure Note J Luis Cottrell - 02/06/2022 [facility] Diagnostic Imaging Department [address] [place] [address] Patient: KENDRA MARTINEZ /Age/Sex: 1955 - 63 - F Unit#: [id number] Location/Status: [facility] CLI Mnemonic/Ordering Site: [facility] Ordering Physician: EVA HARVEY MD [facility] Screening Digital - 03/17/19 - 0944 INDICATION: SCREENING COMPARISON: No prior studies are available for comparison. TECHNIQUE: CC and MLO views of the breasts were obtained, using full field digital mammography with 3D tomosynthesis views in the MLO projection. Computer aided detection with the [employer] 7.2-H was employed. FINDINGS: The breast tissue [...] needs additional imaging evaluation.3340F, 7025F (G0202 / 17419) , [id number] Dictating Physician: J LUIS COTTRELL MD Electronically Signed by: J LUIS COTTRELL MD Dic Date/Time: 03/17/19 1024 Sign date/Time: 03/17/19 1029 us Eva Harvey MD IMG BI PROCEDURES Final Resul t from Last 3 Months or Most Recently Relevant to Health Maintenance
--- OUTSIDE RECORDS SUMMARY | 2024-10-27 16:02 | XMS_ITS | Patient Health Record ---
Author Organization [facility] Address [address] [place] [address] Care Team Providers Care Case Monitor Name Role Phone Mireya Downing MD Primary Care Provider UnavailKrzysztof Schumacher Unavailable [phone] Leila Crowder Unavailable [phone] Allergies Allergen (clinical drug ingredient) Drug/Non Drug [...] Problem Acquired hammer toe of right foot (5495348052851961 ) Other hammer toe(s) (acquired), right foot (M20.41) Active confirmed Problem Acquired hammer toe of left foot (7263633957141052 ) Other hammer toe(s) (acquired), left foot (M20.42) Active confirmed Problem Polyneuropathy due to type 2 diabetes mellitus (802753317) Type 2 diabetes mellitus with diabetic polyneuropathy (E11.42) Active confirmed Vital Signs Height 4ft 11in in 09/16/2024 Weight 142 lbs 09/16/2024 BMI 28.68 kg/m2 09/16/2024 Procedures Procedure Date Ordered Date Performed Result Body Sit e 05656-LLIHHJX NAIL, 1-5 06/10/2024 N/A 49029-QYBW SKIN LESIONS, 2 TO 4 06/10/2024 N/A V6446-CMONUJZN DYSTROPHIC NAILS ANY # 06/10/2024 N/A 46230-HHXIRUH NAIL, 1-5 09/16/2024 N/A 10463-ACCS SKIN LESIONS, 2 TO 4 09/16/2024 N/A V6288-CYVCJFRA DYSTROPHIC NAILS ANY # 09/16/2024 N/A Encounters Encounter Location Date Provider Diagnosis [facility] [address] [address] 06/10/2024 Krzysztof Nettles Type 2 diabetes mellitus with diabetic polyneuropathy E11.42 ; Tinea unguium B35.1 ; Other hammer toe(s) (acquired), right foot M20.41 and Other hammer toe(s) (acquired), left foot M20.42 [facility] [address] [address] 09/16/2024 Krzysztof Nettles Type 2 diabetes mellitus with diabetic polyneuropathy E11.42 ; Tinea unguium B35.1 ; Other hammer toe(s) (acquired), right foot M20.41 and Other hammer toe(s) (acquired), left foot M20.[address] [address] 03/16/2024 Leila Crowder Assessments Encounter Date Diagnosis [...] Treatment Pending Test Test Name Order Date 43847-KXXMKTX NAIL, 1-06/10/2024 22766-ONZYIIU NAIL, 1-09/16/2024 50133-KDKS SKIN LESIONS, 2 TO 4 09/17/19 99462-WNLN SKIN LESIONS, 2 TO 4 06/11/19 Q4888-JYUBBEQL DYSTROPHIC NAILS ANY # K6784-QBOIWMSM DYSTROPHIC NAILS ANY # Next Appt Details Provider Name:Krzysztof Nettles , 12/30/2024 04:00:00 PM, [address] , [address], [place], [address], Insurance Providers Payer Name Payer Address Payer Phone Subscriber Number Group Number Insured Name Patient Relationship to Insured Coverage Start Date Coverage End Date [facility] CCA SCO Claims [address] [place] [id number] [phone] [id number] Kendra Martinez Self - patient is the insured Medical (General) History Medical History History ICD Code Anxiety CAD (Cholesterol) Dementia Diabetic High Blood Pressure Stroke hemochromatosis Cirrhosis, liver Surgical History Surgery Date(Month/Year) total hysterectomy 08/24/24
--- OUTSIDE RECORDS SUMMARY | 2024-10-27 16:03 | XMS_ITS | Clinical Summary ---
Author Organization [facility] Address [address] [place] [address] Phone Care Team Providers Care School Coordinator Name Role Phone Summer Zelaya MD Primary Care P rovider Allergies No known active allergies Medications thiamine (VITAMIN B-1) 100 MG tablet Take 100 mg by mouth daily. Active ferrous sulfate 325 mg (65 mg morongo iron) tablet Take 325 mg by mouth [...] 01/17/2020 01/16/2019, 12/19, 01/14/2019, Additional history exists LIPID PANEL 01/15/2024 01/14/2019 INFLUENZA VACCINE (#1) 2024 COVID-19 VACCINE (2024- season) 2024 03/30/2020, 03/09/2020 RSV VACCINE (1 - 1-dose 75+ series) [...] EST) SODIUM 134(L) 136 - 145 mmol/L [facility] CHLORIDE 90(L) 98 - 107 mmol/L [facility] POTASSIUM 3.8 3.4 - 5.0 mmol/L [facility] CO2 33(H) 22 - 31 mmol/L [facility] BUN 19 6 - 23 mg/dL [facility] CREATININE 0.67 0.50 - 1.20 mg/dL [facility] GLUCOSE 104 70 - 115 mg/dL [facility] Comment:Note: ADA guidelines consider any fasting glucose above 100 mg/dL as pre-diabetic. CALCIUM 10.1 8.6 - 10.7 mg/dL [facility] EGFR 93 >60 mL/min/1.7 3m2 [facility] Comment:If patient is black, multiply result by 1.159. Estimated glomerular filtration rate calculated using the CKD-EPI equation. ANION GAP 11 3 - 15 mmol/L [facility] Blood 01/16/2019 9:09 AM EST 01/16/2019 9:38 AM EST Jarrod Smith MD,MPH,MSc LAB BLOOD OR DERABLES Final Result Performing Organization Address City/[facility]/ZIP Co de Phone Number [address] [address] * Lipid panel (01/14/2019 10:26 AM EST) HDL 50 40 - 60 mg/dL [facility] CHOLESTEROL 128 0 - 199 mg/dL [facility] Comment:DESIRABLE: <200 TRIGLYCERIDES 101 40 - 150 mg/dL [facility] LDL 58 0 - 129 mg/dL [facility] Comment: < 100 Optimal, if known or suspected vascular disease is present < 130 Near optimal, if risk factors for vascular disease are present Guidelines set by National Cholesterol Education Program (Adult Treatment Panel III) CARDIAC RISK RATIO 2.6 0.0 - 4.0 B [facility] Blood 01/14/2019 10:2 6 AM EST 01/14/2019 10:38 AM EST us Jarrod Smith MD,MPH,MSc LAB BLOOD OR DERABLES Final Result Performing Organization Address City/[facility] Co de Phone Number [address] [address] from Last 3 Months or Most Recently Relevant to Health Maintenance Insurance TOGETHER MCO TOGETHER MCO TOGETHER MCO Advance Directives For more information, please contact: [phone] (9AM - 5PM [facility], Friday-Friday) * Full Code (Presumed) (Latest Code Status on File) Date Activated Date Inactivated Comments 01/14/2019 8:22 AM 01/17/2019 1:35 AM Care Teams School Coordinator Relationship Specialty Start Date End Date Summer Zelaya MD [address] [place] [address] PCP - General 01/14/19 Additional Source Comments The information contained in this document represents components of the legal health record. It is not the complete legal health record.[facility]
== END 2024-10-27 13:03 | disposition home or self-care (01) ==
LOC: HO.BBR 13:02
PROVIDERS: Visit Provider Physician Assistant Medical
DX: E83.119 Hemochromatosis, unspecified (principal)
CPT/HCPCS: 85018; 99195

== ENCOUNTER 2024-11-10 13:19 | Outpatient (REF) | payer OTHER, SELFPAY ==
--- OUTSIDE RECORDS SUMMARY | 2024-03-19 08:00 | XMS_ITS ---
Author Organization [facility] Address [address] [place] [address] Care Team Providers Care Floor Clerk Name Role Phone Chang LEE, Mireya Primary Care Provider UnavailKrzysztof Schumacher Unavailable [phone] Leila Crowder Unavailable [phone] Encounters Encounter Location Date [facility] [address] 03/19/2024 Leila Crowder Plan Of Treatment Next Appt Details Provider Name:Krzysztof Nettles , 12/30/2024 04:00:00 PM, [address] [place] [address], [address], Progress Notes * Kendra MARTINEZ ADOB: [birth year] (69 yo F)Acc No.[id number]:03/19/2024 Progress Notes Patient: Kendra CAMP Provider: Gris Crowder DPM :1955 A ge:68 Y S ex:Female Date:03/19/2024 Address:[address] [place] [address] Pcp:Mireya Downing MD Subjective: * Chief Complaints: [...] 0 03/19/2024 Generated for Jesus Culp on: 0 11/10/2024 03:42 PM EDT
--- OUTSIDE RECORDS SUMMARY | 2024-11-10 15:42 | XMS_ITS | Patient Health Record ---
Author Organization [facility] Address [address] [place] [address] Care Team Providers Care Biology Faculty Member Name Role Phone Mireya Downing MD Primary Care Provider UnavailKrzysztof Schumacher Unavailable [phone] Leila Crowder Unavailable [phone] Allergies Allergen (clinical drug ingredient) Drug/Non Drug [...] Problem Acquired hammer toe of right foot (7471314610334164 ) Other hammer toe(s) (acquired), right foot (M20.41) Active confirmed Problem Acquired hammer toe of left foot (9614577593052212 ) Other hammer toe(s) (acquired), left foot (M20.42) Active confirmed Problem Polyneuropathy due to type 2 diabetes mellitus (945027631) Type 2 diabetes mellitus with diabetic polyneuropathy (E11.42) Active confirmed Vital Signs Height 4ft 11in in 09/16/2024 Weight 142 lbs 09/16/2024 BMI 28.68 kg/m2 09/16/2024 Procedures Procedure Date Ordered Date Performed Result Body Sit e 16592-VIJNFJX NAIL, 1-5 06/10/2024 N/A 49306-FRFU SKIN LESIONS, 2 TO 4 06/10/2024 N/A S9412-OLLJFXXF DYSTROPHIC NAILS ANY # 06/10/2024 N/A 21587-QZOWFTJ NAIL, 1-5 09/16/2024 N/A 01602-RWXS SKIN LESIONS, 2 TO 4 09/16/2024 N/A L4844-YQQRSSHM DYSTROPHIC NAILS ANY # 09/16/2024 N/A Encounters Encounter Location Date Provider Diagnosis [facility] [address] [address] 06/10/2024 Krzysztof Nettles Type 2 diabetes mellitus with diabetic polyneuropathy E11.42 ; Tinea unguium B35.1 ; Other hammer toe(s) (acquired), right foot M20.41 and Other hammer toe(s) (acquired), left foot M20.42 [facility] [address] [address] 09/16/2024 Krzysztof Nettles Type 2 diabetes mellitus with diabetic polyneuropathy E11.42 ; Tinea unguium B35.1 ; Other hammer toe(s) (acquired), right foot M20.41 and Other hammer toe(s) (acquired), left foot M20.[address] [address] 03/16/2024 Leila Crowder Assessments Encounter Date Diagnosis [...] Treatment Pending Test Test Name Order Date 74334-LCUSMYI NAIL, 1-06/10/2024 52646-DMSFNQK NAIL, 1-09/16/2024 86940-PTEL SKIN LESIONS, 2 TO 4 09/17/19 91919-GDEZ SKIN LESIONS, 2 TO 4 06/11/19 J5077-JXRKUKUA DYSTROPHIC NAILS ANY # T0965-XCPKVDTG DYSTROPHIC NAILS ANY # Next Appt Details Provider Name:Krzysztof Nettles , 12/30/2024 04:00:00 PM, [address] , [address], [place], [address], Insurance Providers Payer Name Payer Address Payer Phone Subscriber Number Group Number Insured Name Patient Relationship to Insured Coverage Start Date Coverage End Date [facility] CCA SCO Claims [address] [place] [phone] [id number] Kendra Martinez Self - patient is the insured Medical (General) History Medical History History ICD Code Anxiety CAD (Cholesterol) Dementia Diabetic High Blood Pressure Stroke hemochromatosis Cirrhosis, liver Surgical History Surgery Date(Month/Year) total hysterectomy 08/24/24
--- OUTSIDE RECORDS SUMMARY | 2024-11-10 15:42 | XMS_ITS | Clinical Summary ---
Author Organization [facility] ity Address [address] [place] [address] Care Team Providers Care Warp Tension Tester Name Role Phone Unavailable Primary Care Provider [...] 2) 2004 Breast Cancer Screening 03/17/2021 03/17/2019 Depression Screening 02/18/2024 COVID-19 Vaccine (1 - [...] Procedure Name Priority Date/Time Associated Diagnosis Comments [facility] SCREENING DIGITAL Routine 03/17/2019 10:29 AM EST Encounter for screening mammogram for malignant neoplasm of breast from Last 3 Months or Most Recently Relevant to Health Maintenance Results * [facility] SCREENING DIGITAL (03/17/2019 10:29 AM EST) Anatomical Region Laterality Modality Mammography 03/17/2019 9:18 AM EST Narrative 03/17/2019 10:29 AM EST [facility] Diagnostic Imaging Department [address] [place] [address] Patient: KENDRA FELTON D.O.B./Age/Sex: 1955 - 63 - F Unit#: [id number] Location/Status: [facility] CLI Mnemonic/Ordering Site: [facility] Ordering Physician: EVA HARVEY MD [facility] Screening Digital - 03/17/19 - 0944 INDICATION: SCREENING COMPARISON: No prior studies are available for comparison. TECHNIQUE: CC and MLO views of the breasts were obtained, using full field digital mammography with 3D tomosynthesis views in the MLO projection. Computer aided detection with the JUNTA.CL 7.2-H was employed. FINDINGS: The breast tissue [...] additional imaging evaluation. 3340F, 7025F (G0202 / 81039) , [id number] Dictating Physician: J LUIS COTTRELL MD Electronically Signed by: J LUIS COTTRELL MD Dic Date/Time: 03/17/19 1024 Sign date/Time: 03/17/19 1029 Procedure Note J Luis Cottrell - 02/06/2022 [facility] Diagnostic Imaging Department [address] [place], [place] [address] Patient: KENDRA FELTONO.B./Age/Sex: 1955 63 - F Unit#: [id number] Location/Status: [facility] Mnemonic/Ordering Site: [facility] Ordering Physician: EVA HARVEY MD [facility] Screening Digital - 03/17/[address] INDICATION: SCREENING COMPARISON: No prior studies are available for comparison. TECHNIQUE: CC and MLO views of the breasts were obtained, using full field digital mammography with 3D tomosynthesis views in the MLO projection. Computer aided detection with the JUNTA.CL 7.2-H was employed. FINDINGS: The breast tissue [...] needs additional imaging evaluation.3340F, 7025F (G0202 / 96098) , [id number] Dictating Physician: J LUIS COTTRELL MD Electronically Signed by: J LUIS COTTRELL MD Dic Date/Time: 03/17/19 1024 Sign date/Time: 03/17/19 1029 us Eva Harvey MD IMG BI PROCEDURES Final Resul t from Last 3 Months or Most Recently Relevant to Health Maintenance
--- OUTSIDE RECORDS SUMMARY | 2024-11-10 15:42 | XMS_ITS | Clinical Summary ---
Author Organization [facility] Address [address] [place] [address] Phone Care Team Providers Care Business Intelligence Engineer Name Role Phone Summer Zelaya MD Primary Care P rovider Allergies No known active allergies Medications thiamine (VITAMIN B-1) 100 MG tablet Take 100 mg by mouth daily. Active ferrous sulfate 325 mg (65 mg ramona iron) tablet Take 325 mg by mouth [...] EST) SODIUM 134(L) 136 - 145 mmol/L [facility] CHLORIDE 90(L) 98 - 107 mmol/L [facility] POTASSIUM 3.8 3.4 - 5.0 mmol/L [facility] CO2 33(H) 22 - 31 mmol/L [facility] BUN 19 6 - 23 mg/dL [facility] CREATININE 0.67 0.50 - 1.20 mg/dL [facility] GLUCOSE 104 70 - 115 mg/dL [facility] Comment:Note: ADA guidelines consider any fasting glucose above 100 mg/dL as pre-diabetic. CALCIUM 10.1 8.6 - 10.7 mg/dL [facility] EGFR 93 >60 mL/min/1.7 3m2 [facility] Comment:If patient is black, multiply result by 1.159. Estimated glomerular filtration rate calculated using the CKD-EPI equation. ANION GAP 11 3 - 15 mmol/L [facility] Blood 01/16/2019 9:09 AM EST 01/16/2019 9:38 AM EST Jarrod Smith MD,MPH,MSc LAB BLOOD OR DERABLES Final Result Performing Organization Address City/[facility]/ZIP Co de Phone Number [address] [address] * Lipid panel (01/14/2019 10:26 AM EST) HDL 50 40 - 60 mg/dL [facility] CHOLESTEROL 128 0 - 199 mg/dL [facility] Comment:DESIRABLE: <200 TRIGLYCERIDES 101 40 - 150 mg/dL [facility] LDL 58 0 - 129 mg/dL [facility] Comment: < 100 Optimal, if known or suspected vascular disease is present < 130 Near optimal, if risk factors for vascular disease are present Guidelines set by National Cholesterol Education Program (Adult Treatment Panel III) CARDIAC RISK RATIO 2.6 0.0 - 4.0 B [facility] Blood 01/14/2019 10:2 6 AM EST 01/14/2019 10:38 AM EST us Jarrod Smith MD,MPH,MSc LAB BLOOD OR DERABLES Final Result Performing Organization Address City/[facility] Co de Phone Number [address] [address] from Last 3 Months or Most Recently Relevant to Health Maintenance Insurance TOGETHER MCO TOGETHER MCO TOGETHER MCO Advance Directives For more information, please contact: [phone] (9AM - 5PM [facility], Friday-Friday) * Full Code (Presumed) (Latest Code Status on File) Date Activated Date Inactivated Comments 01/14/2019 8:22 AM 01/17/2019 1:35 AM Care Teams Business Intelligence Engineer Relationship Specialty Start Date End Date Summer Zelaya MD [address] [place] [address] PCP - General 01/14/19 Additional Source Comments The information contained in this document represents components of the legal health record. It is not the complete legal health record.[facility]
== END 2024-11-10 13:20 | disposition home or self-care (01) ==
LOC: HO.BBR 13:19
PROVIDERS: Visit Provider Physician Assistant Medical
DX: E83.111 Hemochromatosis due to repeated red blood cell transfusions (principal)
CPT/HCPCS: 85018; 99195

== ENCOUNTER 2024-11-24 13:19 | Outpatient (REF) | payer OTHER, SELFPAY | END 2024-11-24 13:20 | disposition home or self-care (01) | LOC: HO.BBR 13:19 | PROVIDERS: Visit Provider Physician Assistant Medical | DX: E83.119 Hemochromatosis, unspecified (principal) | CPT/HCPCS: 85018 ==

== ENCOUNTER 2024-12-15 13:17 | Outpatient (REF) | payer OTHER, SELFPAY ==
--- OUTSIDE RECORDS SUMMARY | 2024-03-19 08:00 | XMS_ITS ---
Author Organization [facility] Address [address] [place] [address] Care Team Providers Care Egg Tester Name Role Phone Chang LEE, Mireya Primary Care Provider UnavailKrzysztof Schumacher Unavailable [phone] Leila Crowder Unavailable [phone] Encounters Encounter Location Date [facility] [address] 03/19/2024 Leila Crowder Plan Of Treatment Next Appt Details Provider Name:Krzysztof Nettles , 12/30/2024 04:00:00 PM, [address] [place] [address], [phone], Progress Notes * Kendra MARTINEZ ADOB: [birth year] (69 yo F)Acc No.[id number]:03/19/2024 Progress Notes Patient: Kendra CAMP Provider: Gris Crodwer DPM :1955 A ge:68 Y S ex:Female Date:03/19/2024 Address:[address] [place] [address] Pcp:Mireya Downing MD Subjective: * Chief Complaints: * * Medical History: Objective: * Vitals: Assessment: Plan: * Treatment: * Images: * The named appointment provid er may or may not be the originator of this progress note, and it is not deemed complete until electronically signed by the appointment provider. Sign off status: Pending * Provider: Grsi Crowder DPM Date: 0 03/19/2024 Generated for Jesus Culver/Guillermo on: 04:52 PM EDT
--- OUTSIDE RECORDS SUMMARY | 2024-12-15 16:52 | XMS_ITS | Clinical Summary ---
Author Organization [facility] Address [address] [place] [address] Phone Care Team Providers Care Sales Producer Name Role Phone Summer Zelaya MD Primary Care P rovider Allergies No known active allergies Medications thiamine (VITAMIN B-1) 100 MG tablet Take 100 mg by mouth daily. Active ferrous sulfate 325 mg (65 mg [place] iron) tablet Take 325 mg by mouth [...] EST) SODIUM 134(L) 136 - 145 mmol/L [facility] CHLORIDE 90(L) 98 - 107 mmol/L [facility] POTASSIUM 3.8 3.4 - 5.0 mmol/L [facility] CO2 33(H) 22 - 31 mmol/L [facility] BUN 19 6 - 23 mg/dL [facility] CREATININE 0.67 0.50 - 1.20 mg/dL [facility] GLUCOSE 104 70 - 115 mg/dL [facility] Comment:Note: ADA guidelines consider any fasting glucose above 100 mg/dL as pre-diabetic. CALCIUM 10.1 8.6 - 10.7 mg/dL [facility] EGFR 93 >60 mL/min/1.7 3m2 [facility] Comment:If patient is black, multiply result by 1.159. Estimated glomerular filtration rate calculated using the CKD-EPI equation. ANION GAP 11 3 - 15 mmol/L [facility] Blood 01/16/2019 9:09 AM EST 01/16/2019 9:38 AM EST Jarrod Smith MD,MPH,MSc LAB BLOOD OR DERABLES Final Result Performing Organization Address City/[facility]/ZIP Co de Phone Number [address] [address] * Lipid panel (01/14/2019 10:26 AM EST) HDL 50 40 - 60 mg/dL [facility] CHOLESTEROL 128 0 - 199 mg/dL [facility] Comment:DESIRABLE: <200 TRIGLYCERIDES 101 40 - 150 mg/dL [facility] LDL 58 0 - 129 mg/dL [facility] Comment: < 100 Optimal, if known or suspected vascular disease is present < 130 Near optimal, if risk factors for vascular disease are present Guidelines set by National Cholesterol Education Program (Adult Treatment Panel III) CARDIAC RISK RATIO 2.6 0.0 - 4.0 B [facility] Blood 01/14/2019 10:2 6 AM EST 01/14/2019 10:38 AM EST us Jarrod Smith MD,MPH,MSc LAB BLOOD OR DERABLES Final Result Performing Organization Address City/[facility] Co de Phone Number [address] [address] from Last 3 Months or Most Recently Relevant to Health Maintenance Insurance TOGETHER MCO TOGETHER MCO TOGETHER MCO Advance Directives For more information, please contact: [phone] (9AM - 5PM [facility], Friday-Friday) * Full Code (Presumed) (Latest Code Status on File) Date Activated Date Inactivated Comments 01/14/2019 8:22 AM 01/17/2019 1:35 AM Care Teams Sales Producer Relationship Specialty Start Date End Date Summer Zelaya MD [address] [place] [address] PCP - General 01/14/19 Additional Source Comments The information contained in this document represents components of the legal health record. It is not the complete legal health record.[facility]
--- OUTSIDE RECORDS SUMMARY | 2024-12-15 16:52 | XMS_ITS | Clinical Summary ---
Author Organization [facility] ity Address [address] [place] [address] Care Team Providers Care Computer Technology Trainer Name Role Phone Unavailable Primary Care Provider [...] Procedure Name Priority Date/Time Associated Diagnosis Comments [facility] SCREENING DIGITAL Routine 03/17/2019 10:29 AM EST Encounter for screening mammogram for malignant neoplasm of breast from Last 3 Months or Most Recently Relevant to Health Maintenance Results * [facility] SCREENING DIGITAL (03/17/2019 10:29 AM EST) Anatomical Region Laterality Modality Mammography 03/17/2019 9:18 AM EST Narrative 03/17/2019 10:29 AM EST [facility] Diagnostic Imaging Department [address] [place] [address] Patient: KENDRA FELTON D.O.B./Age/Sex: 1955 - 63 - F Unit#: [id number] Location/Status: [facility] CLI Mnemonic/Ordering Site: [facility] Ordering Physician: EVA HARVEY MD [facility] Screening Digital - 03/17/19 - 0944 INDICATION: SCREENING COMPARISON: No prior studies are available for comparison. TECHNIQUE: CC and MLO views of the breasts were obtained, using full field digital mammography with 3D tomosynthesis views in the MLO projection. Computer aided detection with the Qwiqq 7.2-H was employed. FINDINGS: The breast tissue [...] additional imaging evaluation. 3340F, 7025F (G0202 / 69870) , [address] Dictating Physician: J LUIS COTTRELL MD Electronically Signed by: J LUIS COTTRELL MD Dic Date/Time: 03/17/19 1024 Sign date/Time: 03/17/19 1029 Procedure Note J Luis Cottrell - 02/06/2022 [facility] Diagnostic Imaging Department [address] [place], [place] [address] Patient: KENDRA FELTONO.B./Age/Sex: 1955 63 - F Unit#: [id number] Location/Status: [facility] Mnemonic/Ordering Site: [facility] Ordering Physician: EVA HARVEY MD [facility] Screening Digital - 03/17/[address] INDICATION: SCREENING COMPARISON: No prior studies are available for comparison. TECHNIQUE: CC and MLO views of the breasts were obtained, using full field digital mammography with 3D tomosynthesis views in the MLO projection. Computer aided detection with the Qwiqq 7.2-H was employed. FINDINGS: The breast tissue [...] needs additional imaging evaluation.3340F, 7025F (G0202 / 97670) , [address] Dictating Physician: J LUIS COTTRELL MD Electronically Signed by: J LUIS COTTRELL MD Dic Date/Time: 03/17/19 1024 Sign date/Time: 03/17/19 1029 us Eva Harvey MD IMG BI PROCEDURES Final Resul t from Last 3 Months or Most Recently Relevant to Health Maintenance
--- OUTSIDE RECORDS SUMMARY | 2024-12-15 16:52 | XMS_ITS | Patient Health Record ---
Author Organization [facility] Address [address] [place] [address] Care Team Providers Care Bus Operator Name Role Phone Mireya Downing MD Primary Care Provider UnavailKrzysztof Schumacher Unavailable [phone] Leila Crowder Unavailable [phone] Allergies Allergen (clinical drug ingredient) Drug/Non Drug [...] Problem Acquired hammer toe of right foot (0495727564701398 ) Other hammer toe(s) (acquired), right foot (M20.41) Active confirmed Problem Acquired hammer toe of left foot (9421854267526728 ) Other hammer toe(s) (acquired), left foot (M20.42) Active confirmed Problem Polyneuropathy due to type 2 diabetes mellitus (256660771) Type 2 diabetes mellitus with diabetic polyneuropathy (E11.42) Active confirmed Vital Signs Height 4ft 11in in 09/16/2024 Weight 142 lbs 09/16/2024 BMI 28.68 kg/m2 09/16/2024 Procedures Procedure Date Ordered Date Performed Result Body Sit e 78012-DICLOIB NAIL, 1-5 06/10/2024 N/A 76883-GZPG SKIN LESIONS, 2 TO 4 06/10/2024 N/A E2387-PSTRQLDX DYSTROPHIC NAILS ANY # 06/10/2024 N/A 08628-IREEZUN NAIL, 1-5 09/16/2024 N/A 52910-EDEZ SKIN LESIONS, 2 TO 4 09/16/2024 N/A R9837-HBHVNIPP DYSTROPHIC NAILS ANY # 09/16/2024 N/A Encounters Encounter Location Date Provider Diagnosis [facility] [address] [address] 06/10/2024 Krzysztof Nettles Type 2 diabetes mellitus with diabetic polyneuropathy E11.42 ; Tinea unguium B35.1 ; Other hammer toe(s) (acquired), right foot M20.41 and Other hammer toe(s) (acquired), left foot M20.42 [facility] [address] [address] 09/16/2024 Krzysztof Nettles Type 2 diabetes mellitus with diabetic polyneuropathy E11.42 ; Tinea unguium B35.1 ; Other hammer toe(s) (acquired), right foot M20.41 and Other hammer toe(s) (acquired), left foot M20.[address] [address] 03/16/2024 Leila Crowder Assessments Encounter Date Diagnosis [...] Treatment Pending Test Test Name Order Date 73113-OAJIVHL NAIL, 1-06/10/2024 70331-KMCDMVS NAIL, 1-09/16/2024 32357-AGOI SKIN LESIONS, 2 TO 4 09/17/19 68699-SKZS SKIN LESIONS, 2 TO 4 06/11/19 Q2444-PMDWWZPH DYSTROPHIC NAILS ANY # F0816-IYWDBJOP DYSTROPHIC NAILS ANY # Next Appt Details Provider Name:Krzysztof Nettles , 12/30/2024 04:00:00 PM, [address] , [address], [place], [address], Insurance Providers Payer Name Payer Address Payer Phone Subscriber Number Group Number Insured Name Patient Relationship to Insured Coverage Start Date Coverage End Date [facility] CCA SCO Claims [address] [place] [id number] Kendra Martinez Self - patient is the insured Medical (General) History Medical History History ICD Code Anxiety CAD (Cholesterol) Dementia Diabetic High Blood Pressure Stroke hemochromatosis Cirrhosis, liver Surgical History Surgery Date(Month/Year) total hysterectomy 08/24/24
== END 2024-12-15 13:18 | disposition home or self-care (01) ==
LOC: HO.BBR 13:17
PROVIDERS: Visit Provider Physician Assistant Medical
DX: E83.119 Hemochromatosis, unspecified (principal)
CPT/HCPCS: 85018; 99195

== ENCOUNTER 2024-12-30 13:10 | Outpatient (REF) | payer OTHER, SELFPAY ==
--- OUTSIDE RECORDS SUMMARY | 2024-03-19 07:00 | XMS_ITS ---
Author Organization [facility] Address [address] [place] [address] Care Team Providers Care Waste Machine Offbearer Name Role Phone Chang LEE, Mireya Primary Care Provider UnavailKrzysztof Schumacher Unavailable [phone] Leila Crowder [phone] Encounters Encounter Location Date Provider [facility] [address] [place] [address] 03/19/2024 Leila Crowder Plan Of Treatment No Information Progress Notes * JUAN Kendra ADOB: [birth year] (69 yo F)Acc No.[id number]:03/19/2024 Progress Notes Patient: Kendra CAMP Provider: Gris Crowder DPM :1955 A ge:68 Y S ex:Female Date:03/19/2024 Address:[address] [place], [place] [address] Pcp:Mireya Downing MD Subjective: * Chief Complaints: * * Medical History: Objective: * Vitals: Assessment: Plan: * Treatment: * Images: * The named appointment provid er may or may not be the originator of this progress note, and it is not deemed complete until electronically signed by the appointment provider. Sign off status: Pending * Provider: Gris Crowder DPM Date: 0 03/19/2024 Generated for Printi ng/Fajameeg/eTransmitting on: 1 03/01/2024 04:31 PM EST
--- OUTSIDE RECORDS SUMMARY | 2024-12-30 16:31 | XMS_ITS | Clinical Summary ---
Author Organization [facility] ity Address [address] [place] [address] Care Team Providers Care Pan Washer Name Role Phone Unavailable Primary Care Provider [...] Depression Screening 02/18/2024 COVID-19 Vaccine (1 - 2024-2 6 season) 2024 Influenza Vaccine (#1) 2024 RSV [...] Procedure Name Priority Date/Time Associated Diagnosis Comments [facility] SCREENING DIGITAL Routine 03/17/2019 10:29 AM EST Encounter for screening mammogram for malignant neoplasm of breast from Last 3 Months or Most Recently Relevant to Health Maintenance Results * [facility] SCREENING DIGITAL (03/17/2019 10:29 AM EST) Anatomical Region Laterality Modality Mammography 03/17/2019 9:18 AM EST Narrative 03/17/2019 10:29 AM EST [facility] Diagnostic Imaging Department [address] [place] [address] Patient: KENDRA MARTINEZ D.O.B./Age/Sex: 1955 - 63 - F Unit#: [id number] Location/Status: [facility] CLI Mnemonic/Ordering Site: [facility] Ordering Physician: EVA HARVEY MD [facility] [place]ening Digital - 03/17/19 - 0944 INDICATION: SCREENING COMPARISON: No prior studies are available for comparison. TECHNIQUE: CC and MLO views of the breasts were obtained, using full field digital mammography with 3D tomosynthesis views in the MLO projection. Computer aided detection with the ClickandBuy 7.2-H was employed. FINDINGS: The breast tissue [...] additional imaging evaluation. 3340F, 7025F (G0202 / 74483) , [id number] Dictating Physician: J LUIS COTTRELL MD Electronically Signed by: J LUIS COTTRELL MD Dic Date/Time: 03/17/19 1024 Sign date/Time: 03/17/19 1029 Procedure Note J Luis Cottrell - 02/06/2022 [facility] Diagnostic Imaging Department [address] [place], [place] [id number] Patient: KENDRA MARTINEZO.B./Age/Sex: 1955 63 - F Unit#: [id number] Location/Status: [facility] Mnemonic/Ordering Site: [facility] Ordering Physician: EVA HARVEY MD [facility] Screening Digital - 03/17/[address] INDICATION: SCREENING COMPARISON: No prior studies are available for comparison. TECHNIQUE: CC and MLO views of the breasts were obtained, using full field digital mammography with 3D tomosynthesis views in the MLO projection. Computer aided detection with the ClickandBuy 7.2-H was employed. FINDINGS: The breast tissue [...] needs additional imaging evaluation.3340F, 7025F (G0202 / 10918) , [address] Dictating Physician: J LUIS COTTRELL MD Electronically Signed by: J LUIS COTTRELL MD Dic Date/Time: 03/17/19 1024 Sign date/Time: 03/17/19 1029 us Eva Harvey MD IMG BI PROCEDURES Final Resul t from Last 3 Months or Most Recently Relevant to Health Maintenance
--- OUTSIDE RECORDS SUMMARY | 2024-12-30 16:31 | XMS_ITS | Patient Health Record ---
[facility] Address [address] [place] [address] Care Team Providers Care Recycling Or Rubbish Collector Name Role Phone Mireya Downing MD Primary Care Provider UnavailKrzysztof Schumacher Unavailable [phone] Leila Crowder Unavailable [phone] Allergies Allergen (clinical drug ingredient) Drug/Non Drug Allergy documented on EMR Reaction Allergy Type Onset Date Status lisinopril Lisinopril Unknown Drug Allergy Activ e Results Component Value Reference Range Notes HEMOGLOBIN A1C (GLYCOHEMOGLO BIN) Reviewed date:06/10/2024 11:02:03 AM Interpretation: Performing Lab: Notes/Report: HEMOGLOBIN A1C % (HH) 4.9 HEMOGLOBIN A1C (GLYCOHEMOGLO BIN) Reviewed date:12/30/2024 04:24:37 PM Interpretation: Performing Lab: Notes/Report: HEMOGLOBIN A1C % (HH) 10.2 HEMOGLOBIN A1C (GLYCOHEMOGLO BIN) Reviewed date:09/16/2024 11:26:03 AM Interpretation: Performing Lab: Notes/Report: HEMOGLOBIN A1C % (HH) 10.2 Reason For Referral No Information Medications Medication SIG (Take, Route, Frequency, Duration) Notes Start Date End Date Status Losartan Potassium 25 MG 1 tablet Orally Once a day Active Atorvastatin Calcium 40 MG 1 tablet Orally Once a day Active Eliquis 5 MG as directed Orally Active ARIPiprazole 15 MG 1 tablet Orally Once a day Active HumaLOG Active Lantus 100 UNIT/ML as directed Subcutan eous daily 14 units Active Melatonin 5 MG 1 tablet Orally as needed Active Extra Depth Orthopedic Shoes (1 Pair) with Customized Heat Molded Multidensity Innersoles (3 Pair) as directed Dx: NIDDM/Polyneuropathy (E11.42), Hammertoe Foot Deformity (M20.41,M20.42), Preulcerative Skin Lesion(s) (L85.1 Active Immunizations Vaccine Route Administration Date Status [...] Problem Acquired hammer toe of right foot (5433684379881434 ) Other hammer toe(s) (acquired), right foot (M20.41) Active confirmed Problem Acquired hammer toe of left foot (5839659128165681 ) Other hammer toe(s) (acquired), left foot (M20.42) Active confirmed Problem Polyneuropathy due to type 2 diabetes mellitus (692248425) Type 2 diabetes mellitus with diabetic polyneuropathy (E11.42) Active confirmed Vital Signs Height 4ft 11in in 12/30/2024 Weight 142 lbs 12/30/2024 BMI 28.68 kg/m2 12/30/2024 Procedures Procedure Date Ordered Date Performed Result Body Sit e 28549-TGVSMMJ NAIL, 1-5 06/10/2024 N/A 42777-CYSO SKIN LESIONS, 2 TO 4 06/10/2024 N/A Q8848-EDRYAKAT DYSTROPHIC NAILS ANY # 06/10/2024 N/A 37004-SRSIUWH NAIL, 1-5 09/16/2024 N/A 50105-NRXM SKIN LESIONS, 2 TO 4 09/16/2024 N/A N4147-KWWMCPAL DYSTROPHIC NAILS ANY # 09/16/2024 N/A 13913-YYFZKBU NAIL, 1-5 12/30/2024 N/A 44535-KALI SKIN LESIONS, 2 TO 4 12/30/2024 N/A X8494-ILAGKFJA DYSTROPHIC NAILS ANY # 12/30/2024 N/A Encounters Encounter Location Date Provider Diagnosis [address] [address] 12/30/2024 Krzysztofnithya Nettles Type 2 diabetes mellitus with diabetic polyneuropathy E11.42 ; Tinea unguium B35.1 ; Other hammer toe(s) (acquired), right foot M20.41 and Other hammer toe(s) (acquired), left foot M20.[address] [address] 06/10/2024 Krzysztof Nettles Type 2 diabetes mellitus with diabetic polyneuropathy E11.42 ; Tinea unguium B35.1 ; Other hammer toe(s) (acquired), right foot M20.41 and Other hammer toe(s) (acquired), left foot M20.[address] [address] 09/16/2024 Krzysztofnithya Nettles Type 2 diabetes mellitus with diabetic polyneuropathy E11.42 ; Tinea unguium B35.1 ; Other hammer toe(s) (acquired), right foot M20.41 and Other hammer toe(s) (acquired), left foot M20.[address] [address] 03/16/2024 Leila Crowder Assessments Encounter Date Diagnosis (ICD Code) Assessment Notes Treatment Notes Treatment Clinical Notes Section Notes 06/10/2024 Tinea unguium (ICD-10 - B35.1) 06/10/2024 Type 2 diabetes mellitus with diabetic polyneuropathy (ICD-10 - E11.42) 09/16/2024 Tinea unguium (ICD-10 - B35.1) 09/16/2024 Type 2 diabetes mellitus with diabetic polyneuropathy (ICD-10 - E11.42) 12/30/2024 Tinea unguium (ICD-10 - B35.1) 12/30/2024 Type 2 diabetes mellitus with diabetic polyneuropathy (ICD-10 - E11.42) 06/10/2024 Other hammer toe(s) (acquired), right foot (ICD-10 - M20.41) Patient Educated with: DIABETIC FOOT CARE INSTRUCTIONS. pdf (DIABETIC FOOT CARE INSTRUCTIONS. pdf) 12/30/2024 Other hammer toe(s) (acquired), right foot (ICD-10 - M20.41) 09/16/2024 Other hammer toe(s) (acquired), right foot (ICD-10 - M20.41) Patient Educated with: DIABETIC FOOT CARE INSTRUCTIONS. pdf (DIABETIC FOOT CARE INSTRUCTIONS. pdf) 09/16/2024 Other hammer toe(s) (acquired), left foot (ICD-10 - M20.42) 12/30/2024 Other hammer toe(s) (acquired), left foot (ICD-10 - M20.42) 06/10/2024 Other hammer toe(s) (acquired), left foot (ICD-10 - M20.42) Plan Of Treatment Pending Test Test Name Order Date 44839-BCWDKWX NAIL, 1-5 12/30/2024 55920-MYCUOKX NAIL, 1-5 06/10/2024 64300-ZHYVEFQ NAIL, 1-5 09/16/2024 11541-RDBP SKIN LESIONS, 2 TO 4 09/17/19 82663-NYWS SKIN LESIONS, 2 TO 4 06/11/19 67432-YFRZ SKIN LESIONS, 2 TO 4 12/31/19 N1173-TRXMBHDT DYSTROPHIC NAILS ANY # I8104-XOIVAQPN DYSTROPHIC NAILS ANY # C3969-XSJHNYEX DYSTROPHIC NAILS ANY # Insurance Providers Payer Name Payer Address Payer Phone Subscriber Number Group Number Insured Name Patient Relationship to Insured Coverage Start Date Coverage End Date [facility] SCO Claims [address] [place] [id number] Kendra Martinez Self - patient is the insured Medical (General) History Medical History History ICD Code Anxiety CAD (Cholesterol) Dementia Diabetic High Blood Pressure Stroke hemochromatosis Cirrhosis, liver Surgical History Surgery Date(Month/Year) total hysterectomy 08/24/24
--- OUTSIDE RECORDS SUMMARY | 2024-12-30 16:31 | XMS_ITS | Clinical Summary ---
Author Organization [facility] Address [address] [place] [address] Phone Care Team Providers Care Rn Maternal Child Name Role Phone Summer Zelaya MD Primary Care P rovider Allergies No known active allergies Medications thiamine (VITAMIN B-1) 100 MG tablet Take 100 mg by mouth daily. Active ferrous sulfate 325 mg (65 mg [place] iron) tablet Take 325 mg by mouth [...] 01/14/2019 INFLUENZA VACCINE (#1) 2024 COVID-19 VACCINE ( season) 2024 03/30/2020, 03/09/2020 RSV VACCINE (1 - 1-dose 75+ series) 2029 HEPATITIS A VACCINES Aged Out No long er eligible based on patient's age to complete this topic HIB VACCINES Aged Out No longer eligi ble based on patient's age to complete this topic IPV VACCINES Aged Out No longer eligi ble [...] Date/Time Associated Diagnosis Comments BASIC METABOLIC PANEL (BMP) Routine 01/16/2019 9:09 AM EST LIPID PANEL Routine 01/14/2019 10:26 AM EST from Last 3 Months or Most Recently Relevant to Health Maintenance Results * (ABNORMAL) Basic metabolic panel (01/16/2019 9:09 AM EST) SODIUM 134(L) 136 - 145 mmol/L [facility] CHLORIDE 90(L) 98 - 107 mmol/L [facility] POTASSIUM 3.8 3.4 - 5.0 mmol/L [facility] CO2 33(H) 22 - 31 mmol/L [facility] BUN 19 6 - 23 mg/dL [facility] CREATININE 0.67 0.50 - 1.20 mg/dL [facility] GLUCOSE 104 70 - 115 mg/dL [facility] Comment:Note: ADA guidelines consider any fasting glucose above 100 mg/dL as pre-diabetic. CALCIUM 10.1 8.6 - 10.7 mg/dL [facility] EGFR 93 >60 mL/min/1.7 3m2 [facility] Comment:If patient is black, multiply result by 1.159. Estimated glomerular filtration rate calculated using the CKD-EPI equation. ANION GAP 11 3 - 15 mmol/L [facility] Blood 01/16/2019 9:09 AM EST 01/16/2019 9:38 AM EST Jarrod Smith MD,MPH,MSc LAB BLOOD BK R ORDERABLES Final Result Performing Organization Address City/[facility] Co de Phone Number [address] [address] * Lipid panel (01/14/2019 10:26 AM EST) HDL 50 40 - 60 mg/dL [facility] CHOLESTEROL 128 0 - 199 mg/dL [facility] Comment:DESIRABLE: <200 TRIGLYCERIDES 101 40 - 150 mg/dL [facility] LDL 58 0 - 129 mg/dL [facility] Comment: < 100 Optimal, if known or suspected vascular disease is present < 130 Near optimal, if risk factors for vascular disease are present Guidelines set by National Cholesterol Education Program (Adult Treatment Panel III) CARDIAC RISK RATIO 2.6 0.0 - 4.0 B [facility] Blood 01/14/2019 10:2 6 AM EST 01/14/2019 10:38 AM EST Jarrod Smith MD,MPH,MSc LAB BLOOD BK R ORDERABLES Final Result Performing Organization Address City/[facility]/ZIP Co de Phone Number [address] [address] from Last 3 Months or Most Recently Relevant to Health Maintenance Insurance TOGETHER MCO TOGETHER MCO TOGETHER MCO TOGETHER MCO Advance Directives For more information, please contact: [phone] (9AM - 5PM [place], Friday-Friday) * Full Code (Presumed) (Latest Code Status on File) Date Activated Date Inactivated Comments 01/14/2019 8:22 AM 01/17/2019 1:35 AM Care Teams Rn Maternal Child Relationship Specialty Start Date End Date Summer Zelaya MD [address] [place] [address] PCP - General 01/14/19 Additional Source Comments The information contained in this document represents components of the legal health record. It is not the complete legal health record.[facility]
== END 2024-12-30 13:11 | disposition home or self-care (01) ==
LOC: HO.BBR 13:10
PROVIDERS: Visit Provider Physician Assistant Medical
DX: E83.119 Hemochromatosis, unspecified (principal)
CPT/HCPCS: 85014; 85018; 99195

== ENCOUNTER 2025-01-17 13:11 | Outpatient (REF) | payer OTHER, SELFPAY ==
--- OUTSIDE RECORDS SUMMARY | 2025-01-17 16:51 | XMS_ITS | Clinical Summary ---
Author Organization [facility] Address [address] [place] [address] Phone Care Team Providers Care Head Of Design Name Role Phone Summer Zelaya MD Primary Care P rovider Allergies No known active allergies Medications thiamine (VITAMIN B-1) 100 MG tablet Take 100 mg by mouth daily. Active ferrous sulfate 325 mg (65 mg [place] iron) tablet Take 325 mg by mouth [...] EST) SODIUM 134(L) 136 - 145 mmol/L [facility] CHLORIDE 90(L) 98 - 107 mmol/L [facility] POTASSIUM 3.8 3.4 - 5.0 mmol/L [facility] CO2 33(H) 22 - 31 mmol/L [facility] BUN 19 6 - 23 mg/dL [facility] CREATININE 0.67 0.50 - 1.20 mg/dL [facility] GLUCOSE 104 70 - 115 mg/dL [facility] Comment:Note: ADA guidelines consider any fasting glucose above 100 mg/dL as pre-diabetic. CALCIUM 10.1 8.6 - 10.7 mg/dL [facility] EGFR 93 >60 mL/min/1.7 3m2 [facility] Comment:If patient is black, multiply result by 1.159. Estimated glomerular filtration rate calculated using the CKD-EPI equation. ANION GAP 11 3 - 15 mmol/L [facility] Blood 01/16/2019 9:09 AM EST 01/16/2019 9:38 AM EST Jarrod Smith MD,MPH,MSc LAB BLOOD BK R ORDERABLES Final Result Performing Organization Address City/[facility]/ZIP Co de Phone Number [address] [address] * Lipid panel (01/14/2019 10:26 AM EST) HDL 50 40 - 60 mg/dL [facility] CHOLESTEROL 128 0 - 199 mg/dL [facility] Comment:DESIRABLE: <200 TRIGLYCERIDES 101 40 - 150 mg/dL [facility] LDL 58 0 - 129 mg/dL [facility] Comment: < 100 Optimal, if known or suspected vascular disease is present < 130 Near optimal, if risk factors for vascular disease are present Guidelines set by National Cholesterol Education Program (Adult Treatment Panel III) CARDIAC RISK RATIO 2.6 0.0 - 4.0 B [facility] Blood 01/14/2019 10:2 6 AM EST 01/14/2019 10:38 AM EST us Jarrod Smith MD,MPH,MSc LAB BLOOD BK R ORDERABLES Final Result Performing Organization Address City/[facility] Co de Phone Number [address] [address] from Last 3 Months or Most Recently Relevant to Health Maintenance Insurance TOGETHER MCO TOGETHER MCO Advance Directives For more information, please contact: [phone] (9AM - 5PM [facility], Friday-Friday) * Full Code (Presumed) (Latest Code Status on File) Date Activated Date Inactivated Comments 01/14/2019 8:22 AM 01/17/2019 1:35 AM Care Teams Head Of Design Relationship Specialty Start Date End Date Summer Zelaya MD [address] [place] [id number] PCP - General 01/14/19 Additional Source Comments The information contained in this document represents components of the legal health record. It is not the complete legal health record.[facility]
--- OUTSIDE RECORDS SUMMARY | 2025-01-17 16:51 | XMS_ITS | Clinical Summary ---
Author Organization [facility] ity Address [address] [place] [address] Care Team Providers Care Quarantine Inspector Name Role Phone Unavailable Primary Care [...] Recently Relevant to Health Maintenance Results * [facility] SCREENING DIGITAL (03/17/2019 10:29 AM EST) Anatomical Region Laterality Modality Mammography 03/17/2019 9:18 AM EST Narrative 03/17/2019 10:29 AM EST [facility] Diagnostic Imaging Department [address] [place] [address] Patient: KENDRA FELTON D.O.B./Age/Sex: 1955 - 63 - F Unit#: [id number] Location/Status: [facility] CLI Mnemonic/Ordering Site: [facility] Ordering Physician: EVA HARVEY MD [facility] Screening Digital - 03/17/19 - 0944 INDICATION: SCREENING COMPARISON: No prior studies are available for comparison. TECHNIQUE: CC and MLO views of the breasts were obtained, using full field digital mammography with 3D tomosynthesis views in the MLO projection. Computer aided detection with the [employer] 7.2-H was employed. FINDINGS: The breast tissue [...] additional imaging evaluation. 3340F, 7025F (G0202 / 48209) , [id number] Dictating Physician: J LUIS COTTRELL MD Electronically Signed by: J LUIS COTTRELL MD Dic Date/Time: 03/17/19 1024 Sign date/Time: 03/17/19 1029 Procedure Note J Luis Cottrell - 02/06/2022 [facility] Diagnostic Imaging Department [address] [place], [place] [address] Patient: KENDRA FELTONO.B./Age/Sex: 1955 63 - F Unit#: [id number] Location/Status: [facility] Mnemonic/Ordering Site: [facility] Ordering Physician: EVA HARVEY MD [place] Screening Digital - 03/17/19943 INDICATION: SCREENING COMPARISON: No prior studies are available for comparison. TECHNIQUE: CC and MLO views of the breasts were obtained, using full field digital mammography with 3D tomosynthesis views in the MLO projection. Computer aided detection with the [employer] 7.2-H was employed. FINDINGS: The breast tissue [...] needs additional imaging evaluation.3340F, 7025F (G0202 / 56033) , [id number] Dictating Physician: J LUIS COTTRELL MD Electronically Signed by: J LUIS COTTRELL MD Dic Date/Time: 03/17/19 1024 Sign date/Time: 03/17/19 1029 us Eva Harvey MD IMG BI PROCEDURES Final Resul t from Last 3 Months or Most Recently Relevant to Health Maintenance
== END 2025-01-17 13:12 | disposition home or self-care (01) ==
LOC: HO.BBR 13:11
PROVIDERS: Visit Provider Physician Assistant Medical
DX: E83.119 Hemochromatosis, unspecified (principal)
CPT/HCPCS: 85018; 99195

== ENCOUNTER 2025-01-31 13:12 | Outpatient (REF) | payer OTHER, SELFPAY ==
--- OUTSIDE RECORDS SUMMARY | 2024-03-19 07:00 | XMS_ITS ---
Author Organization [facility] Address [address] [place] [address] Care Team Providers Care Air Chief Marshal Name Role Phone Chang LEE, Mireya Primary Care Provider UnavailKrzysztof Schumacher Unavailable [phone] Leila Crowder [phone] Encounters Encounter Location Date [facility] [address] 03/19/2024 Leila Crowder Plan Of Treatment Next Appt Details Provider Name:Krzysztof Nettles , 04/18/2025 01:00:00 PM, [address] [place] [address], [address], [address], Progress Notes * Kendra MARTINEZ ADOB: [birth year] (69 yo F)Acc No.[id number]:03/19/2024 Progress Notes Patient: Kendra CAMP Provider: Gris Crowder DPM :1955 A ge:68 Y S ex:Female Date:03/19/2024 Address:[address] [place] [address] Pcp:Mireya Downing MD Subjective: * Chief Complaints: [...] Crowder DPM Date: 0 03/19/2024 Generated for Jesus Culp on: 04/03/2024 12:32 PM EST
--- OUTSIDE RECORDS SUMMARY | 2025-01-31 19:11 | XMS_ITS | Clinical Summary ---
Author Organization [facility] ity Address [address] [place] [address] Care Team Providers Care Long Wall Mining Machine Tender Name Role Phone Unavailable Primary Care Provider [...] Procedure Name Priority Date/Time Associated Diagnosis Comments [facility] SCREENING DIGITAL Routine 03/17/2019 10:29 AM EST Encounter for screening mammogram for malignant neoplasm of breast from Last 3 Months or Most Recently Relevant to Health Maintenance Results * [facility] SCREENING DIGITAL (03/17/2019 10:29 AM EST) Anatomical Region Laterality Modality Mammography 03/17/2019 9:18 AM EST Narrative 03/17/2019 10:29 AM EST [facility] Diagnostic Imaging Department [address] [place] [address] Patient: KENDRA FELTON D.O.B./Age/Sex: 1955 - 63 - F Unit#: [id number] Location/Status: [facility] CLI Mnemonic/Ordering Site: [facility] Ordering Physician: EVA HARVEY MD [facility] Screening Digital - 03/17/19 - 0944 INDICATION: SCREENING COMPARISON: No prior studies are available for comparison. TECHNIQUE: CC and MLO views of the breasts were obtained, using full field digital mammography with 3D tomosynthesis views in the MLO projection. Computer aided detection with the [employer] 7.2-H was employed. FINDINGS: The breast tissue [...] additional imaging evaluation. 3340F, 7025F (G0202 / 65977) , [id number] Dictating Physician: J LUIS COTTRELL MD Electronically Signed by: J LUIS COTTRELL MD Dic Date/Time: 03/17/19 1024 Sign date/Time: 03/17/19 1029 Procedure Note J Luis Cottrell - 02/06/2022 [facility] Diagnostic Imaging Department [address] [place], [place] [address] Patient: KENDRA FELTONO.B./Age/Sex: 1955 63 - F Unit#: [id number] Location/Status: [facility] Mnemonic/Ordering Site: [facility] Ordering Physician: EVA HARVEY MD [place] Screening Digital - 03/17/19943 INDICATION: SCREENING COMPARISON: No prior studies are available for comparison. TECHNIQUE: CC and MLO views of the breasts were obtained, using full field digital mammography with 3D tomosynthesis views in the MLO projection. Computer aided detection with the [employer] 7.2-H was employed. FINDINGS: The breast tissue [...] needs additional imaging evaluation.3340F, 7025F (G0202 / 36240) , [id number] Dictating Physician: J LUIS COTTRELL MD Electronically Signed by: J LUIS COTTRELL MD Dic Date/Time: 03/17/19 1024 Sign date/Time: 03/17/19 1029 us Eva Harvey MD IMG BI PROCEDURES Final Resul t from Last 3 Months or Most Recently Relevant to Health Maintenance
--- OUTSIDE RECORDS SUMMARY | 2025-01-31 19:11 | XMS_ITS | Patient Health Record ---
Author [facility] Address [address] [place] [address] Care Team Providers Care Research Tech Name Role Phone Mireya Downing MD Primary Care Provider UnavailKrzysztof Schumacher Unavailable [phone] Leila Crowder Unavailable [phone] Allergies Allergen (clinical drug ingredient) Drug/Non Drug [...] Problem Acquired hammer toe of right foot (9441168644014502 ) Other hammer toe(s) (acquired), right foot (M20.41) Active confirmed Problem Acquired hammer toe of left foot (7397148528994585 ) Other hammer toe(s) (acquired), left foot (M20.42) Active confirmed Problem Polyneuropathy due to type 2 diabetes mellitus (991998932) Type 2 diabetes mellitus with diabetic polyneuropathy (E11.42) Active confirmed Vital Signs Height 4ft 11in in 12/30/2024 Weight 142 lbs 12/30/2024 BMI 28.68 kg/m2 12/30/2024 Procedures Procedure Date Ordered Date Performed Result Body Sit e 23886-NXORYMC NAIL, 1-5 06/10/2024 N/A 12063-BTBW SKIN LESIONS, 2 TO 4 06/10/2024 N/A N7536-UYFUBXPU DYSTROPHIC NAILS ANY # 06/10/2024 N/A 08122-TEOABJK NAIL, 1-5 09/16/2024 N/A 20959-VJRK SKIN LESIONS, 2 TO 4 09/16/2024 N/A X9249-KSJQFPED DYSTROPHIC NAILS ANY # 09/16/2024 N/A 19463-JZWDEWR NAIL, 1-5 12/30/2024 N/A 76027-AJAC SKIN LESIONS, 2 TO 4 12/30/2024 N/A I1311-SWQKYMVX DYSTROPHIC NAILS ANY # 12/30/2024 N/A Encounters Encounter Location Date Provider Diagnosis [address] [address] 06/10/2024 Krzysztof Nettles Type 2 diabetes mellitus with diabetic polyneuropathy E11.42 ; Tinea unguium B35.1 ; Other hammer toe(s) (acquired), right foot M20.41 and Other hammer toe(s) (acquired), left foot M20.[address] [address] 09/16/2024 Krzysztofnithya Nettles Type 2 diabetes mellitus with diabetic polyneuropathy E11.42 ; Tinea unguium B35.1 ; Other hammer toe(s) (acquired), right foot M20.41 and Other hammer toe(s) (acquired), left foot M20.[address] [address] 12/30/2024 Krzysztofnithya Nettles Type 2 diabetes mellitus with diabetic polyneuropathy E11.42 ; Tinea unguium B35.1 ; Other hammer toe(s) (acquired), right foot M20.41 and Other hammer toe(s) (acquired), left foot M20.[address] [address] 03/16/2024 Leila Crowder Assessments Encounter Date Diagnosis [...] Treatment Pending Test Test Name Order Date 49177-EVTOXIF NAIL, 1-5 06/10/2024 35670-VTJMPOK NAIL, 1-5 09/16/2024 05336-HDCZVOE NAIL, 1-5 12/30/2024 66626-ZVJM SKIN LESIONS, 2 TO 4 12/31/19 22232-IWLW SKIN LESIONS, 2 TO 4 06/11/19 95667-DBKC SKIN LESIONS, 2 TO 4 09/17/19 25 P4356-DNWGIIMJ DYSTROPHIC NAILS ANY # X5625-YNVJRZHD DYSTROPHIC NAILS ANY # V4528-GWPPKNDR DYSTROPHIC NAILS ANY # Next Appt Details Provider Name:Krzysztof Nettles , 04/18/2025 01:00:00 PM, [address] [facility], [facility] [address], [place], [address], Insurance Providers Payer Name Payer Address Payer Phone Subscriber Number Group Number Insured Name Patient Relationship to Insured Coverage Start Date Coverage End Date [facility] [employer] SCO Claims [address] [place] [id number] Kendra Martinez Self - patient is the insured Medical (General) History Medical History History ICD Code Anxiety CAD (Cholesterol) Dementia Diabetic High Blood Pressure Stroke hemochromatosis Cirrhosis, liver Surgical History Surgery Date(Month/Year) total hysterectomy 08/24/24
--- OUTSIDE RECORDS SUMMARY | 2025-01-31 19:12 | XMS_ITS | Clinical Summary ---
Author Organization [facility] Address [address] [place] [id number] Phone Care Team Providers Care Resolution Rep Name Role Phone Summer Zelaya MD Primary Care P rovider Allergies No known active allergies Medications thiamine (VITAMIN B-1) 100 MG tablet Take 100 mg by mouth daily. Active ferrous sulfate 325 mg (65 mg [place] iron) tablet Take 325 mg by mouth [...] EST) SODIUM 134(L) 136 - 145 mmol/L [facility] CHLORIDE 90(L) 98 - 107 mmol/L [facility] POTASSIUM 3.8 3.4 - 5.0 mmol/L [facility] CO2 33(H) 22 - 31 mmol/L [facility] BUN 19 6 - 23 mg/dL [facility] CREATININE 0.67 0.50 - 1.20 mg/dL [facility] GLUCOSE 104 70 - 115 mg/dL [facility] Comment:Note: ADA guidelines consider any fasting glucose above 100 mg/dL as pre-diabetic. CALCIUM 10.1 8.6 - 10.7 mg/dL [facility] EGFR 93 >60 mL/min/1.7 3m2 [facility] Comment:If patient is black, multiply result by 1.159. Estimated glomerular filtration rate calculated using the CKD-EPI equation. ANION GAP 11 3 - 15 mmol/L [facility] Blood 01/16/2019 9:09 AM EST 01/16/2019 9:38 AM EST Jarrod Smith MD,MPH,MSc LAB BLOOD BK R ORDERABLES Final Result Performing Organization Address City/[facility]/ZIP Co de Phone Number [address] [phone] * Lipid panel (01/14/2019 10:26 AM EST) HDL 50 40 - 60 mg/dL [facility] CHOLESTEROL 128 0 - 199 mg/dL [facility] Comment:DESIRABLE: <200 TRIGLYCERIDES 101 40 - 150 mg/dL [facility] LDL 58 0 - 129 mg/dL [facility] Comment: < 100 Optimal, if known or suspected vascular disease is present < 130 Near optimal, if risk factors for vascular disease are present Guidelines set by National Cholesterol Education Program (Adult Treatment Panel III) CARDIAC RISK RATIO 2.6 0.0 - 4.0 B [facility] Blood 01/14/2019 10:2 6 AM EST 01/14/2019 10:38 AM EST us Jarrod Smith MD,MPH,MSc LAB BLOOD BK R ORDERABLES Final Result Performing Organization Address City/[facility] Co de Phone Number [address] [phone] from Last 3 Months or Most Recently Relevant to Health Maintenance Insurance [employer]GETHER [employer] TO[employer]HER [employer] Advance Directives For more information, please contact: [phone] (9AM - 5PM [facility], Friday-Friday) * Full Code (Presumed) (Latest Code Status on File) Date Activated Date Inactivated Comments 01/14/2019 8:22 AM 01/17/2019 1:35 AM Care Teams Resolution Rep Relationship Specialty Start Date End Date Summer Zelaya MD [address] [place] [id number] PCP - General 01/14/19 Additional Source Comments The information contained in this document represents components of the legal health record. It is not the complete legal health record.[facility]
== END 2025-01-31 13:13 | disposition home or self-care (01) ==
LOC: HO.BBR 13:12
PROVIDERS: Visit Provider Physician Assistant Medical
DX: E83.119 Hemochromatosis, unspecified (principal)
CPT/HCPCS: 85014; 85018; 99195